=== PATIENT | male | born 1955 | race Caucasian/White ===

== ENCOUNTER → 2020-05-08 09:40 | Outpatient (BNVA) | payer MEDICARE, SELFPAY | PROVIDERS: PCP Internal Medicine; Visit Provider Anesthesiology | DX: M47.816 Spondylosis without myelopathy or radiculopathy, lumbar region (principal); M54.16 Radiculopathy, lumbar region; M54.31 Sciatica, right side | CPT/HCPCS: 99213 ==

== ENCOUNTER 2020-05-19 07:29 | Outpatient (REF) | payer MEDICARE, SELFPAY ==
--- NOTE | 2020-05-19 07:31 | MR_ITS ---
EXAMINATION: MR LUMBAR SPINE WITHOUT CONTRAST CLINICAL INFORMATION: Right lower extremity radiculopathy and low back pain. COMPARISON: MRI dated 12/21/2018. TECHNIQUE: MRI of the lumbar spine was obtained using routine sequences without contrast. FINDINGS: VERTEBRAL BODIES AND PARASPINAL STRUCTURES: The marrow signal is mildly heterogeneous with regions of fatty change. Mild retrosubluxation at L4-L5 again evident. No compression fractures are seen. There is mild leftward endplate edema at L4-L5, decreased when compared to prior imaging with a mild leftward lumbar spinal curvature. The paraspinal soft tissues are unremarkable. Renal cysts present, more so on the left side. The imaged bony pelvis is unremarkable. CONUS MEDULLARIS AND CAUDA EQUINA: Normal, terminating at the level of T12-L1. No lower cord signal abnormality is seen. The cauda equina nerve roots are normal. SPINAL LEVELS: L1-L2: Generalized disc bulge slightly lateralized to the left side with mild facet arthropathy. No central canal stenosis or foraminal narrowing. L2-L3: Broad-based disc bulge and small right subarticular zone disc protrusion mildly impressing upon the right L3 nerve root. Previous small right paracentral disc extrusion has resorbed. No central canal stenosis or foraminal narrowing. Mild retrosubluxation. L3-L4: Generalized disc bulge and hypertrophic facet arthropathy with mild central canal stenosis. Disc bulge posteriorly results in mild mass effect upon the traversing L4 nerve roots. Bulging disc mildly encroaches upon the right neural foramen. L4-L5: Diffuse disc bulge and retrosubluxation with qxwgjzts-qc-vhpcaf facet arthropathy again evident. Stable rwjzdioq-zu-fsmsgc central canal stenosis and thecal sac distortion. A right lateral recess disc extrusion is again visible compressing the right L5 nerve root. Npff-wq-pbhxklgx foraminal narrowing without change. Facet spurring encroaches upon the left subarticular zone. L5-S1: Moderate facet arthropathy and posterior disc bulge with endplate spurring. No central canal stenosis. Facet arthropathy mildly distorts the traversing left S1 nerve root without change. MR/MR lumbar spine wo con IMPRESSION: Previous small right paracentral disc extrusion at L2-L3 has resorbed. Spondylitic changes at the remaining levels are fairly similar with zszfjhmm-ol-mkyslq central canal stenosis at L4-L5 and a right lateral recess disc extrusion compressing the right L5 nerve root.
== END 2020-05-19 07:30 | disposition home or self-care (01) ==
LOC: HO.MRI 07:29
PROVIDERS: PCP Internal Medicine; Visit Provider Internal Medicine
DX: M54.16 Radiculopathy, lumbar region (principal); M54.31 Sciatica, right side; R20.0 Anesthesia of skin
CPT/HCPCS: 72148

== ENCOUNTER 2020-05-31 06:13 | Outpatient (REF) | payer MEDICARE, SELFPAY ==
[2020-05-31 07:55] LABS: Cholesterol 179 mg/dL; HDL Cholesterol 46 mg/dL; LDL Cholesterol Calculated 111 mg/dl; Triglycerides 110 mg/dL
== END 2020-05-31 06:14 | disposition home or self-care (01) ==
LOC: HO.LAB 06:13
PROVIDERS: Visit Provider Internal Medicine
DX: I10 Essential (primary) hypertension (principal); M47.816 Spondylosis without myelopathy or radiculopathy, lumbar region; M54.16 Radiculopathy, lumbar region; M54.31 Sciatica, right side
CPT/HCPCS: 80061; 99212

== ENCOUNTER 2020-06-13 05:58 | Outpatient (REF) | payer MEDICARE, SELFPAY ==
--- NOTE | 2020-06-13 08:05 | FL_ITS ---
EXAMINATION: XR FLUOROSCOPY WITH IMAGES CLINICAL INFORMATION: M47.816 - Spondylosis without myelopathy or radiculopathy COMPARISON: MRI lumbar spine 05/19/2020 TECHNIQUE: Fluoroscopy performed by Bibiana Galdamez NP. Fluoroscopy time: 1.1 minutes DAP: 10.2 Gycm2 Images: 3 FINDINGS: There are spinal needles overlying outer aspect right L2-L3, L3-L4, L4-L5, and L5-S1 neural foramina. FL/FL guidance in treatment room IMPRESSION: Fluoroscopy for pain management procedures.
== END 2020-06-13 05:59 | disposition home or self-care (01) ==
LOC: HO.RADIR 05:58
PROVIDERS: PCP Internal Medicine; Visit Provider Anesthesiology
DX: M47.816 Spondylosis without myelopathy or radiculopathy, lumbar region (principal); M54.16 Radiculopathy, lumbar region; M54.31 Sciatica, right side
CPT/HCPCS: 64635; 64636; J3300; Q9967

== ENCOUNTER 2020-06-30 14:17 | Outpatient (REF) | payer MEDICARE, SELFPAY ==
--- NOTE | 2020-06-30 14:23 | XR_ITS ---
EXAMINATION: XR CHEST CLINICAL INFORMATION: Cough COMPARISON: None TECHNIQUE: 2 views of the chest were obtained. FINDINGS: The lungs are well expanded. There is no focal consolidation, edema, or effusion. No pneumothorax. The cardiomediastinal silhouette is within normal limits. No acute osseous abnormality. XR/XR chest 2V IMPRESSION: No acute pulmonary finding.
== END 2020-06-30 14:18 | disposition home or self-care (01) ==
LOC: HO.XRAY 14:17
PROVIDERS: PCP Internal Medicine; Visit Provider Internal Medicine
DX: R05 Cough (principal)
CPT/HCPCS: 71046

== ENCOUNTER 2020-06-30 16:26 | Outpatient (REF) | payer MEDICARE, SELFPAY | END 2020-06-30 16:27 | disposition home or self-care (01) | LOC: HO.LAB 16:26 | PROVIDERS: Visit Provider Internal Medicine | DX: Z20.828 Contact with and (suspected) exposure to other viral communicable diseases (principal); R09.89 Other specified symptoms and signs involving the circulatory and respiratory systems | CPT/HCPCS: U0003 ==

== ENCOUNTER → 2020-07-26 09:54 | Outpatient (BNVA) | payer MEDICARE, SELFPAY | PROVIDERS: PCP Internal Medicine; Visit Provider Anesthesiology | DX: M47.816 Spondylosis without myelopathy or radiculopathy, lumbar region (principal); M54.16 Radiculopathy, lumbar region; M54.31 Sciatica, right side | CPT/HCPCS: Q3014 ==

== ENCOUNTER 2021-02-19 06:07 | Outpatient (REF) | payer MEDICARE, SELFPAY ==
[2021-02-19 06:35] LABS: MANUAL DIFF FLAG NO
[2021-02-19 06:45] LABS: Basophils Percent Auto 0.5 % (0-2); Eosinophils Absolute Auto 0.2 X10*3/uL (0.0-0.4); Eosinophils Percent Auto 3.2 % (0-4); Hematocrit 42.4 % (42-52); Imm Gran Abs Auto 0.08 X10*3/uL (0.00-0.03); Imm Gran Pct Auto 1.4 % (0.0-0.4); Lymphocytes Absolute Auto 1.3 X10*3/uL (1.2-4.9); Lymphocytes Percent Auto 22.8 % (20-40); Mean Corpuscular Hemoglobin 30.4 pg (27.0-33.0); Mean Platelet Volume 11.2 fL (9.4-12.4); Monocytes Absolute Auto 0.5 X10*3/uL (0.1-1.2); Monocytes Percent Auto 9.3 % (2-11); Neutrophils Absolute Auto 3.6 X10*3/uL (2.0-8.3); Neutrophils Percent Auto 62.8 % (45-73); Platelet Count 185 X10*3/uL (160-400); Red Blood Count 4.61 X10*6/uL (4.60-5.80); Red Cell Distribution Width 12.2 % (11.0-16.0); White Blood Count 5.7 X10*3/uL (4.8-10.8)
[2021-02-19 07:08] LABS: Alanine Aminotransferase 18 U/L (0-40); Albumin Level 4.4 g/dL (3.5-5.0); Alkaline Phosphatase 62 U/L (39-117); Anion Gap 14 (12-20); Aspartate Amino Transferase 19 U/L (5-37); Bilirubin Total < 0.2 mg/dL (0.0-1.0); Blood Urea Nitrogen 15 mg/dL (9-16); Calcium 9.4 mg/dL (8.4-10.2); Carbon Dioxide 26 mmol/L (22-29); Chloride 104 mmol/L (96-108); Cholesterol 193 mg/dL; Estimated Glomerular Filt Rate > 60; Glucose Fasting 104 mg/dL (60-99); HDL Cholesterol 51 mg/dL; LDL Cholesterol Calculated 130 mg/dl; Potassium 4.1 mmol/L (3.3-5.1); Sodium 140 mmol/L (135-145); Total Protein 7.3 g/dL (6.5-8.0); Triglycerides 63 mg/dL
== END 2021-02-19 06:08 | disposition home or self-care (01) ==
LOC: HO.LAB 06:07
PROVIDERS: PCP Internal Medicine; Visit Provider Internal Medicine
DX: Z00.00 Encounter for general adult medical examination without abnormal findings (principal); E11.9 Type 2 diabetes mellitus without complications
CPT/HCPCS: 36415; 80053; 80061; 85025

== ENCOUNTER → 2021-03-21 10:04 | Outpatient (BNVA) | payer MEDICARE, SELFPAY | PROVIDERS: PCP Internal Medicine; Visit Provider Anesthesiology | DX: M47.816 Spondylosis without myelopathy or radiculopathy, lumbar region (principal); M54.16 Radiculopathy, lumbar region; M54.31 Sciatica, right side; I10 Essential (primary) hypertension; Z88.0 Allergy status to penicillin | CPT/HCPCS: 99212 ==

== ENCOUNTER 2021-04-27 08:43 | Day surgery (SDC) | payer MEDICARE, SELFPAY ==
--- NOTE | 2021-04-26 09:18 | P.CONAN_ITS ---
Documented by User: Sapna Gutierrez NP 04/26/21 09:19 HPI - Anesthesia Eval Consult details Narrative: 65yo M for Right Medial Branch Radiofrequency AB PMFSH Active Problems Active Problems: All Active Problems (Updated 03/21/21 @ 17:45 by Israel Cloud MD) Cough (Acute) Physical exam (Acute) Hypertension (Acute) Spondylosis of lumbar region without myelopathy or radiculopathy (Acute) Lumbar radiculopathy (Acute) Numbness of toes (Acute) Sciatica (Acute) Past Medical History Medical History Hypertension Spondylosis of lumbar region without myelopathy or radiculopathy Family History Family History (Updated 02/20/21 @ 13:28 by EDI Gurrola) Father Diabetes Heart failure Mother Respiratory failure Surgical History Surgical History History of parathyroidectomy Social History Social History Housing: House Alcohol intake: never Patient Tobacco Use Status: Never used Tobacco e-Cigarette/Vaping Use: Never Used Second Hand Smoke Exposure: No Use of substances other than those prescribed or required for medical reasons: No Are you DNR?: No Advance Directives: No Advance Directives Information Provided: Yes Advance Directives on File: No service: No Current occupational status: retired Meds Allergies Allergy/AdvReac Type Severity Reaction Status Date / Time Penicillins [PENICILLINS] Allergy Unknown HIVES Verified 03/21/21 10:45 Home Medications Medication Instructions Recorded Confirmed Last Taken Type bimatoprost 0.01 % eye drops 1 drp OPHTHALMIC (EYE) DAILY ml 05/08/20 02/20/21 Unknown History acetaminophen 500 mg tablet 500 mg PO Q6H PRN 05/31/20 02/20/21 Unknown History (Tylenol Extra Strength) ibuprofen 800 mg tablet 800 mg PO TID 05/31/20 02/20/21 Unknown History niacin 500 mg tablet 500 mg PO BID 06/02/20 02/20/21 Unknown History Exam Exam Date and Time: April 26, 2021 0918 Pertinent Lab Results Pertinent Lab Results: Laboratory Tests 02/19/21 02/19/21 06:13 06:13 WBC 5.7 Hgb 14.0 Hct 42.4 Plt Count 185 Sodium 140 Potassium 4.1 Chloride 104 Carbon Dioxide 26 BUN 15 Creatinine 1.14 Assessment and Plan Assessment Anesthesia Assessment: Chart Reviewed Documented by User: Evan Sanchez MD 04/27/21 09:23 [facility] Past Medical History Medical History Hypertension Spondylosis of lumbar region without myelopathy or radiculopathy Family History Family History (Updated 02/20/21 @ 13:28 by EDI Gurrola) Father Diabetes Heart failure Mother Respiratory failure Family history of problems with anesthesia: No Surgical History Surgical History History of parathyroidectomy History of Problems with Anesthesia: No Social History Social History Housing: House Alcohol intake: never Patient Tobacco Use Status: Never used Tobacco e-Cigarette/Vaping Use: Never Used Second Hand Smoke Exposure: No Use of substances other than those prescribed or required for medical reasons: No Are you DNR?: No Advance Directives: No Advance Directives Information Provided: Yes Advance Directives on File: No service: No Current occupational status: retired Meds Allergies Allergy/AdvReac Type Severity Reaction Status Date / Time Penicillins [PENICILLINS] Allergy Unknown HIVES Verified 03/21/21 10:45 Home Medications Medication Instructions Recorded Confirmed Last Taken Type bimatoprost 0.01 % eye drops 1 drp OPHTHALMIC (EYE) DAILY ml 05/08/20 02/20/21 Unknown History acetaminophen 500 mg tablet 500 mg PO Q6H PRN 05/31/20 02/20/21 Unknown History (Tylenol Extra Strength) ibuprofen 800 mg tablet 800 mg PO TID 05/31/20 02/20/21 Unknown History niacin 500 mg tablet 500 mg PO BID 06/02/20 02/20/21 Unknown History Exam Airway Mallampati Class: III TM Dist: >3cm Neck ROM: Full Loose/Missing/Broken Teeth: No Heart: rrr+s1s2 Lungs: cta b/l Assessment and Plan Assessment Anesthesia Assessment: Anesthesia Plan Discussed Final Anesthetic Review Family History of Problems with Anesthesia: No History of Problems with Anesthesia: No NPO: Yes ASA Class: II Final Preanesthetic Review: No Changes in Pt Med Stat, Meds/Allgs Chart Reviewed, Consent Obtained/Reviewed and Anes Risks/Benef Reviewed Patient Risk: Intermediate Procedure Risk: Low Assessment/Block/Sedation in SS: Assess/Block/Sedation-SS Anesthetic Plan Anesthetic Plan: MAC: and Agree w/ Assess. and Plan Disposition: Standard PACU
--- NOTE | ~2021-04-27 | FL_ITS ---
EXAMINATION: XR FLUOROSCOPY WITH IMAGES CLINICAL INFORMATION: Medial right branch block. COMPARISON: None TECHNIQUE: Fluoroscopy performed by Dr. Israel Cloud. Fluoroscopy time: 0.8 minutes DAP: 8.17 mGy-cm2 Images: 2 FINDINGS: There are needles positioned along the right side of the L3, L4, L5, and S1 pedicles for medial right branch block. No lytic process. There is mild spondylosis at the L4-L5 and L5-S1 disc levels. There is loss of the L3-L4, L4-L5 and L5-S1 disc levels. FL/FL guidance in OR IMPRESSION: Fluoroscopy was provided to referring physician for right medial branch block from L3 through S1 vertebrae.
[2021-04-27 09:05] VITALS: BMI 26.3
[2021-04-27 09:21] VITALS: BP 139/79; PULSE 98; RESP 16; TEMP 36.6; O2SAT 97
[2021-04-27] MEDS: Lactated Ringers 1,000 ML 100 ML IVCONT (09:22)
--- NOTE | 2021-04-27 10:18 | MHC.SHP ---
Pre-Procedural Eval Section A Date of Service: 04/27/21 Section B Chief Complaint: spondylosis without myelopathy Details of Present Illness: As above Relevant Social History: None Present Medications: None Medical History: No relevant PMH History of Previous Operations: No relevant previous surgery Allergies: Allergies Allergy/AdvReac Type Severity Reaction Status Date / Time Penicillins [PENICILLINS] Allergy Unknown HIVES Verified 03/21/21 10:45 Review of Systems Sugical H&P ROS: Negative: Constitution, Cardiovascular, Respiratory, Neurological, Psychiatric, Hem-Onc, Allergic/Immunologic, Gastrointestinal, Genitourinary, Musculoskeletal, Integumentary, Endocrine and Eyes/Ears/Nose/Throat Exam Surgical H&P Exam: Normal: HEENT, Normal: Heart, Normal: Lungs, Normal: Extremities, Normal: Abdomen, Normal: Skin and Normal: Neurological Plan Diagnosis/Plan: Unchanged I have reviewed the history and physical and performed a pertinent physical examination on my patient. No changes have occurred unless specified.
--- NOTE | 2021-04-27 10:27 | P.OP_ITS ---
Operative Note Operative Note Date of Service: 04/27/21 Narrative: Informed consent was explained to the patient. All questions were explained and answered. The patient was taken inside the operating room where he was positioned prone on the operating table. ? Time-out was performed delineating correct site, side, the nature of the procedure, patient's allergy, preoperative antibiotic if needed. All operating room staff was participating in OR time-out procedure.? [employer] [employer] nesthes[employer] monitors were applied and patient was deeply sedated. ? The lower back was prepped with ChloraPrep and draped with sterile towels. Sterilely draped C-arm was brought over the operating field and square picture of? L3, L4 and L5 vertebra and S1 AREA were delineated on the screen. Point of interest were delineated as connection of superior articular process of L3, L4 and L5 vertebra on the right with corresponding transverse processes, as well as connection of the sacral alae on the right with superior articular process of S1. One hundred mm 18 gauge radiofrequency cannulas were driven to the point of interest in tunnel vision fashion. After cannulas gently contacted the bone at the point of interests the radiofrequency probes were inserted into the each of the cannula and each of the cannula was tested for motor response at 2 milliamperes. There were no motor response detected. After that the each cannula was injected with 1-1.5 cc of mixture of bupivacaine 0.5% with lidocaine 2% and trace amount of Kenalog. After that the radiofrequency probes were reinserted into the cannulas and 90 seconds after that we applied energy at 89? for 90 seconds. After that each of the cannula was rotated 180? and energy application was repeated at the same setting at the same time ? Upon completion of the injections cannulas were removed and sterile dressings were applied . patient was awaken and taken outside of the operating room to recovery room where the patient recovered uneventfully. The patient went home without immediate complications.
[2021-04-27 11:15] VITALS: BP 107/51; PULSE 92; RESP 16; TEMP 36.6; O2SAT 95
--- NOTE | 2021-04-27 11:17 | P.BOP_ITS ---
Brief Operative Note Date of Service: 04/27/21 Pre-op diagnosis: Spondylosis lumbar spine Post-op diagnosis: same Procedure: Radiofrequency ablation of L2-L3 L4 and does ramus L5 medial branches on the right Implants: In a Surgeon: Israel Cloud MD Anesthesia: MAC Was an Polishing Wheel Setter used for this Procedure?: No Estimated blood loss (mL): 5 Pathology: none sent Condition: stable Disposition: PACU
[2021-04-27 11:29] VITALS: BP 122/47; PULSE 70; RESP 16; O2SAT 97
[2021-04-27 11:45] VITALS: BP 123/72; PULSE 76; RESP 16; O2SAT 97
[2021-04-27 12:07] VITALS: BP 112/77; PULSE 76; RESP 16; TEMP 36.1; O2SAT 97
== END 2021-04-27 12:47 | disposition home or self-care (01) ==
PROVIDERS: PCP Internal Medicine; Visit Provider Anesthesiology
PROC: (CPT 64635; principal; 2021-04-27 10:30)
DX: M47.816 Spondylosis without myelopathy or radiculopathy, lumbar region (principal); M54.16 Radiculopathy, lumbar region; M54.50 Low back pain, unspecified; M54.31 Sciatica, right side; M25.551 Pain in right hip; I10 Essential (primary) hypertension; Z79.899 Other long term (current) drug therapy; Z88.0 Allergy status to penicillin
CPT/HCPCS: 64635; 64636; J2250; J3010; J3300; Q9967

== ENCOUNTER → 2021-06-04 10:11 | Outpatient (BNVA) | payer MEDICARE, SELFPAY | PROVIDERS: PCP Internal Medicine; Visit Provider Anesthesiology | DX: M47.816 Spondylosis without myelopathy or radiculopathy, lumbar region (principal); M54.16 Radiculopathy, lumbar region; M54.31 Sciatica, right side; M25.511 Pain in right shoulder | CPT/HCPCS: 99212 ==

== ENCOUNTER 2021-07-12 09:00 | Outpatient (RCR) | payer MEDICARE, SELFPAY ==
[2021-06-19 14:12] VITALS: BP 164/85
--- NOTE | 2021-06-20 08:52 | MHC.PT.EP ---
[facility] [place] Office [place] [facility] [place] Office [address] Coleman Lee [address] [phone] F: [phone] F: [phone] F: [phone] F: [phone] Physical Therapy Plan of Care Date of Evaluation: Date of Surgery: Diagnosis: RIGHT SHOULDER INJURY Assessment: ALLEN IS A PLEASANT 65 YO MALE WITH INCREASING SHOULDER PAIN AFTER LIFTING. UPON EXAM HE DEMONSTRATES DECREASED SHOULDER ROM AND STRENGTH, ALTERED POSTURE AND POSITIONING, DECREASED SOFT TISSUE EXTENSIBILITY AND INCREASED PAIN. FUNCTIONAL LIMITATIONS INCLUDE DECREASED ABILITY TO PERFORM LIFTING, REACHING, PUSHING AND PULLING. HE REPORTS DECREASED ABILITY TO PERFORM HIGHER DEMAND HOMEMAKING TASKS, DECREASED PARTICIPATION IN COMMUNITY AND RECREATIONAL ACTIVITIES. DISRUPTED SLEEP. A PT IS A GOOD CANDIDATE FOR SKILLED PT DUE TO AGE, POTENTIAL REMEDIATION OF IMPAIRMENTS, TYPICAL DISEASE/CONDITION PROGRESSION AND PROGNOSIS, COMORBIDITIES, AND MOTIVATION. PT WOULD BENEFIT FROM TAILORED PROGRAM OF THERAPEUTIC ACTIVITIES, FUNCTIONAL TRAINING, GAIT TRAINING, POSTURAL EDUCATION, NEUROMUSCULAR RE-EDUCATION, AND MODALITIES NEEDED. Frequency and Duration: The patient will be seen 2 X WEEK FOR 4 WEEKS Short Term Goals: INITIATE HEP AND PROMOTE SELF MANAGEMENT OF SYMPTOMS IN 2 VISITS Retirement Goals: Full, pain free ROM in 4 weeks Full UE strength, pain free in 4 weeks To perform computer and work tasks without restriction and pain no greater than 2/10 in [address] at minimum of 5# into cabinet at shoulder height in 4 weeks Treatment Plan: Modalities to reduce pain, spasms and effusion. Manual therapy to restore motion and function. Therapeutic exercise to improve strength and flexibility. Neuromuscular re-education for posture and balance. Therapeutic activities to return to functional activities of daily living. Electronically signed by: CJ ODOM PT, DPT Please sign and return to therapist. Thank you for your referral.
--- NOTE | 2021-07-12 09:37 | MHC.PT.DC ---
[facility] [place] Office [place] Office [place] Office [address] Coleman Lee [address] [phone] F: [phone] F: [phone] F: [phone] F: [phone] Physical Therapy Discharge Report Diagnosis: RIGHT SHOULDER INJURY Date of Surgery: Date of Evaluation: 06/19/21 Date of Discharge: Treatments to Date: 8 Cancellations to Date: 0 No Shows to Date: 0 Discharge Status: Achieved Goals Improved Function Independent with HEP Discharge Summary: Sage has progressed well with therapy and demonstrates improved posture and independence with his current HEP. His symptoms have decreased in both frequency and intensity. We recommend he continue with his home program as well as maintaining postural awareness during recreational activities like his keyboard playing. He has been instructed in strategies to progress himself at home with independence. Electronically signed by: Annetta Blue PT, DPT Please sign and return to therapist. Thank you for your referral.
== END 2021-07-12 09:38 | disposition home or self-care (01) ==
LOC: HO.PT 09:00
PROVIDERS: PCP Internal Medicine; Visit Provider Anesthesiology
DX: M25.511 Pain in right shoulder (principal)
CPT/HCPCS: 97110; 97140; 97161; 97530

== ENCOUNTER → 2021-12-19 10:57 | Outpatient (REF) | payer MEDICARE, SELFPAY | LOC: HO.SL 10:57 | PROVIDERS: PCP Internal Medicine; Visit Provider Internal Medicine | DX: G47.33 Obstructive sleep apnea (adult) (pediatric) (principal); R06.83 Snoring | CPT/HCPCS: 95806 ==

== ENCOUNTER 2022-02-20 06:06 | Outpatient (REF) | payer MEDICARE, SELFPAY ==
[2022-02-20 06:11] LABS: MANUAL DIFF FLAG NO
[2022-02-20 07:27] LABS: Basophils Percent Auto 0.6 % (0-2); Eosinophils Absolute Auto 0.1 X10*3/uL (0.0-0.4); Eosinophils Percent Auto 1.5 % (0-4); Hematocrit 41.5 % (42.0-52.0); Hemoglobin 13.7 g/dl (14.0-18.0); Imm Gran Abs Auto 0.05 X10*3/uL (0.00-0.03); Imm Gran Pct Auto 0.7 % (0.0-0.4); Lymphocytes Absolute Auto 1.4 X10*3/uL (1.2-4.9); Lymphocytes Percent Auto 21.4 % (20-40); Mean Corpuscular Hemoglobin 30.5 pg (27.0-33.0); Mean Corpuscular Volume 92.4 fL (80.0-98.0); Mean Platelet Volume 11.1 fL (9.4-12.4); Monocytes Absolute Auto 0.6 X10*3/uL (0.1-1.2); Monocytes Percent Auto 9.4 % (2-11); Neutrophils Absolute Auto 4.4 x10*3/uL (2.0-8.3); Neutrophils Percent Auto 66.4 % (45-73); Platelet Count 211 X10*3/uL (160-400); Red Blood Count 4.49 X10*6/uL (4.60-5.80); Red Cell Distribution Width 12.6 % (11.0-16.0); White Blood Count 6.7 X10*3/uL (4.8-10.8)
[2022-02-20 07:44] LABS: Alanine Aminotransferase 22 U/L (0-40); Albumin Level 4.4 g/dL (3.5-5.0); Alkaline Phosphatase 63 U/L (39-117); Anion Gap 15 (12-20); Aspartate Amino Transferase 16 U/L (5-37); Bilirubin Total 0.5 mg/dL (0.0-1.0); Blood Urea Nitrogen 26 mg/dL (9-16); Calcium 9.2 mg/dL (8.4-10.2); Carbon Dioxide 27 mmol/L (22-29); Chloride 105 mmol/L (96-108); Cholesterol 198 mg/dL; Estimated Glomerular Filt Rate 59; Glucose Fasting 95 mg/dL (60-99); HDL Cholesterol 45 mg/dL; LDL Cholesterol Calculated 133 mg/dl; Potassium 4.2 mmol/L (3.3-5.1); Sodium 143 mmol/L (135-145); Total Protein 7.3 g/dL (6.5-8.0); Triglycerides 104 mg/dL
[2022-02-20 08:07] LABS: Prostate Specific Antigen Scr 2.39 ng/mL (<0.05-4.0)
== END 2022-02-20 06:07 | disposition home or self-care (01) ==
LOC: HO.LAB 06:06
PROVIDERS: PCP Internal Medicine; Visit Provider Internal Medicine
DX: Z00.00 Encounter for general adult medical examination without abnormal findings (principal); Z12.5 Encounter for screening for malignant neoplasm of prostate; Z13.0 Encounter for screening for diseases of the blood and blood-forming organs and certain disorders involving the immune mechanism
CPT/HCPCS: 36415; 80053; 80061; 84153; 85025

== ENCOUNTER 2022-08-08 09:58 | Outpatient (REF) | payer MEDICARE, SELFPAY ==
--- NOTE | ~2022-08-08 | XR_ITS ---
EXAMINATION: XR CHEST CLINICAL INFORMATION: Chronic cough COMPARISON: 06/30/2020 TECHNIQUE: 2 views of the chest were obtained. FINDINGS: No significant abnormality is noted involving the heart, lungs, mediastinum, bony thorax or soft tissues. XR/XR chest 2V IMPRESSION: Unremarkable examination.
== END 2022-08-08 09:59 | disposition home or self-care (01) ==
LOC: HO.HMGCX 09:58
PROVIDERS: PCP Internal Medicine; Visit Provider Internal Medicine
DX: R05.3 Chronic cough (principal); R09.81 Nasal congestion; R09.82 Postnasal drip
CPT/HCPCS: 71046

== ENCOUNTER 2022-12-11 12:38 | Outpatient (REF) | payer MEDICARE, SELFPAY ==
[2022-12-11 13:52] LABS: Hematocrit 43.2 % (42.0-52.0); Hemoglobin 14.1 g/dl (14.0-18.0); Mean Corpuscular HGB Conc 32.6 g/dl (31.0-36.0); Mean Corpuscular Hemoglobin 29.9 pg (27.0-33.0); Mean Corpuscular Volume 91.7 fL (80.0-98.0); Platelet Count 225 X10*3/uL (160-400); Red Blood Count 4.71 X10*6/uL (4.60-5.80); Red Cell Distribution Width 12.2 % (11.0-16.0); White Blood Count 7.1 X10*3/uL (4.8-10.8)
[2022-12-11 13:57] LABS: Prothrombin Time 11.3 SEC (10.0-13.1)
[2022-12-11 14:54] LABS: Anion Gap 14 (12-20); Blood Urea Nitrogen 19 mg/dL (9-16); Calcium 9.8 mg/dL (8.4-10.2); Carbon Dioxide 27 mmol/L (22-29); Chloride 103 mmol/L (96-108); Estimated Glomerular Filt Rate > 60; Glucose Random 81 mg/dL (60-115); Potassium 3.7 mmol/L (3.3-5.1); Sodium 140 mmol/L (135-145)
[2022-12-11 15:10] LABS: TSH reflex Free T4 1.71 uIU/mL (0.32-4.0)
== END 2022-12-11 12:39 | disposition home or self-care (01) ==
LOC: HO.LAB 12:38
PROVIDERS: PCP Internal Medicine; Visit Provider Nurse Practitioner Family
DX: Z01.818 Encounter for other preprocedural examination (principal); I10 Essential (primary) hypertension; H26.9 Unspecified cataract; M54.30 Sciatica, unspecified side
CPT/HCPCS: 36415; 80048; 84443; 85027; 85610

== ENCOUNTER 2023-02-18 09:28 | Outpatient (AMB) | payer MEDICARE, SELFPAY ==
[2023-02-18 09:34] VITALS: BP 130/72; PULSE 85; O2SAT 97; BMI 27.5
--- NOTE | 2023-02-18 09:34 | A.OFFPC_ITS ---
Vital Signs 02/18/23 09:34 Height 6 ft 2 in Weight 214 lb BMI 27.5 BP 130/72 Blood Pressure Location Lt brachial Position Sitting Pulse 85 Pulse Source Pulse Oximeter Temp Source Skin Pulse Oximetry (%) 97 Oxygen Delivery Method Room Air Intake Visit Reasons: 6mth f/u Greenhouse Or Nursery Transplanter Required: No Allergies Penicillins [PENICILLINS] Allergy (Unknown, Verified 02/18/23 09:34) HIVES Medication List - Last Reconciled 02/18/23 by Familia George MD acetaminophen (Tylenol Extra Strength) 500 mg PO Q6H PRN bimatoprost 0.01% 1 drp ophthalmic (eye) DAILY CPAP (CPAP Machine/Device) Pressure 8 ezetimibe 10 mg PO DAILY hydrochlorothiazide 25 mg PO DAILY ibuprofen 800 mg PO TID lisinopril 2.5 mg PO DAILY lorazepam 1 mg PO BID PRN niacin 500 mg PO BID tamsulosin 0.4 mg PO DAILY Tobacco use date assessed: 02/18/23 Fall risk assessment: No Falls in past year Last assessed Fall Risk: 02/18/23 Dental Screening Dental Screen Date: 02/18/23 Did you have a dental visit in the last 12 months?: Yes Did you have a dental problem in the last 6 months where you did not have access to dental care?: No HPI 6mth f/u HPI Details HTN CAROLE on CPAP and glaucome; stable on rx PFSH Medical History Hypertension Right shoulder pain Spondylosis of lumbar region without myelopathy or radiculopathy Surgical History History of parathyroidectomy Family History Father Diabetes Heart failure Mother Respiratory failure Social History Housing: House Alcohol intake: never Patient Tobacco Use Status: Never used Tobacco e-Cigarette/Vaping Use: Never Used Second Hand Smoke Exposure: No service: No Current occupational status: retired Cognitive needs: No Hearing needs: No Vision needs: Yes Questionnaire Thrive Questionnaire Date Thrive assessed: 08/21/22 AUDIT C Alcohol Use Questionnaire (AUDIT-C) 1. How often do you have a drink containing alcohol?: Never 3. How often do you have six or more drinks on one occasion?: Never Total Score: 0 Score Reviewed/Action Taken: No PATEL-7 AMB Questionnaire PATEL-7 Date PATEL - 7 assessed: 08/21/22 Source: Developed by Drs. Shmuel Blackman, Dian Westfall, Jones Palacio and colleagues, with an educational silvino from [employer]. Review of Systems Const Denies chills, Denies headache(s) and Denies weight loss ENT Denies headache(s) Card Denies chest pain, Denies syncope, Denies irregular heart rhythm and Denies dyspnea Resp Denies chest congestion, Denies cough and Denies dyspnea GI Denies abdominal pain, Denies change in stool character, Denies nausea and Denies vomiting Musc Denies deformity and Denies joint swelling Neuro Denies syncope and Denies headache(s) Physical exam (Primary Care) Vital Signs: Last Vital Signs Pulse 85 02/18/23 09:34 BP 130/72 02/18/23 09:34 Pulse Ox 97 02/18/23 09:34 Oxygen Delivery Method Room Air 02/18/23 09:34 BMI result Body Mass Index 27.5 Tobacco/Smoking Status: Tobacco use Status Tobacco use date assessed 02/18/23 02/18/23 09:38 Patient Tobacco Use Status Never used Tobacco 02/18/23 09:38 e-Cigarette/Vaping Use Never Used 02/18/23 09:38 Thrive Assessment: Date of Thrive Assessment Date Thrive assessed 08/21/22 02/18/23 09:38 Const General: cooperative and no acute distress Orientation/consciousness: patient oriented x3 HENMT Head: Yes normocephalic and Yes atraumatic Ears: TM's normal bilaterally Face and sinus: Yes sinuses nontender Mouth: oropharynx normal and moist mucous membranes Throat: Yes posterior oropharynx normal Eyes General: appearance normal, both eyes and all related structures Pupils: Equal, round and reactive pupils present EOM: EOMs intact bilaterally Neck Neck: Yes normal visual inspection, Yes full ROM and Yes no lymphadenopathy Thyroid: Thyroid normal Resp Effort & Inspection: normal respiratory effort and able to speak in complete sentences Auscultation: clear to auscultation bilaterally, no crackles, no rales, no rh onchi and no wheezes Cardio Rate: regular rate Rhythm: regular rhythm Heart sounds: S1 normal heart sound present, S2 normal heart sound present and no murmurs GI Palpation (GI): Soft to palpation, not firm, nontender, no guarding, not rigid and no hepatosplenomegaly Auscultation: normal bowel sounds General: No CVA tenderness Back/Spine/Pelvis Back: No CVA tenderness Skin General skin exam: no rashes or lesions noted Neuro General: patient oriented x3 Cranial nerves: Yes Equal, round and reactive pupils present Gait exam (Neuro): Normal gait present Extrem General: Yes full ROM and No edema Assessment and Plan Assessment & Plan (1) Obstructive sleep apnea: Code(s): G47.33 - Obstructive sleep apnea (adult) (pediatric) Plan: cont cpap (2) Hypertension: Code(s): I10 - Essential (primary) hypertension Plan: stable; same rx (3) Glaucoma: Code(s): H40.9 - Unspecified glaucoma Plan: stable; as per ophth Coding Level of Care Code Est Pt Level 4 (11226) Diagnoses Obstructive sleep apnea G47.33 Hypertension I10 Glaucoma H40.9
== END 2023-02-18 10:01 | disposition home or self-care (01) ==
PROVIDERS: PCP Internal Medicine; Visit Provider Internal Medicine
DX: G47.33 Obstructive sleep apnea (adult) (pediatric) (principal); I10 Essential (primary) hypertension; H40.9 Unspecified glaucoma
CPT/HCPCS: 99214

== ENCOUNTER 2023-04-28 09:05 | Outpatient (AMB) | payer MEDICARE, SELFPAY ==
--- NOTE | 2023-04-28 09:17 | MHC.OFFVIS ---
Intake Vital Signs 04/28/23 09:18 Height 6 ft 2 in Weight 209 lb BMI 26.8 BP 118/60 Blood Pressure Location Rt brachial Position Sitting Respiration 16 Pulse 89 Pulse Source Pulse Oximeter Pulse Oximetry (%) 96 Oxygen Delivery Method Room Air Intake Visit Reasons: Increasing Pain in Back Intake Note: patient comes in for increasing back pain. Pain level today is 2/10. Allergies Penicillins [PENICILLINS] Allergy (Unknown, Verified 04/28/23 09:18) HIVES HPI HPI Comments History of Present Illness Details Sage is very pleasant 63 years old gentleman who is in my office to complain again on lower back pain.? He reported that he had very good pain relieve and good mobility in activity of daily living until beginning of the March when he pulled some muscles in the right side of his lower back. He had radiofrequency ablation previously on the right side L2-L3 L4 does ramus L5 on the right side with very good results twice with interval of about of 1 year between the RFA. He reports that his pain now is getting better and he wants to try physical therapy. I will refer him to physical therapy . Prior: he had successful right-sided L2-L3 L4 dorsal ramus L5 radiofrequency ablation.? It was working for a while but then he came to me with the same complaints again. I repeated right-sided L2 L3-L4 does ramus L5 medial branch radiofrequency ablation on April 27, 2021. He reports now 50% pain improvement on his typical pain on the right side with radiation into the right buttock, better mobility better activities of daily living better social interactions. However he reports that recently he tried to lift something heavy and after that he felt pain in the center of the lumbar spine he reports that this is new pain. He also reports that most bothering pain is pain in his right shoulder which also occurred after the heavy lift. He tried to take Tylenol and muscle relaxants for this pain. He reports very minimal pain improvement however he reports significant range of motion improvement in the shoulder. ? He is status post cluneal nerve injection with no good pain relief, he is status post diagnostic positive right-sided L2-L3 L4 dorsal ramus L5 diagnostic injection. ?Prior: ? TRAVERSING L3 NERVE ROOT IS COMPRESSED ON MRI BELOW AND I CANNOT EXCLUDE THE CONTRIBUTION OF THIS PATHOLOGY TO HIS PAIN. THE RIGHT-SIDED PAIN IN THE BACK AFTER RFA MOST LIKELY WILL DISAPPEAR HOWEVER IF THE LEG'S PAIN WILL LINGER L2-L3 A AND L3-L4 TRANSFORAMINAL INJECTION COULD BE TRIED TO ALLEVIATE HIS PAIN.PRIOR the pain is radiating down to the right hip on the lateral side and to the right carreno on the right lateral side pain stops approximately at the ankle area. The pain is STRONGEST in the morning. DALTON TEST IS NEGATIVE FOR PAIN INCREASE IN THE BACK. ? pain started to disturb him 4 years ago. He tried physical therapy several times and he reported that physical therapy was MINIMALLY TO MODERATELY helpful for his pain he reports that heat application ultrasound application and traction help his pain. He reported that he was subject of some injections performed by [facility] he is not sure what injections were performed. They were performed before patient had MRI of the lumbar spine. He never tried chiropractic manipulations for the pain. It was suggested to him before [facility] Medical History Hypertension Right shoulder pain Spondylosis of lumbar region without myelopathy or radiculopathy Surgical History History of parathyroidectomy Family History Father Diabetes Heart failure Mother Respiratory failure Social History Housing: House Alcohol intake: never Patient Tobacco Use Status: Never used Tobacco e-Cigarette/Vaping Use: Never Used Second Hand Smoke Exposure: No service: No Current occupational status: retired Cognitive needs: No Hearing needs: No Vision needs: Yes Review of Systems Const All systems reviewed & are unremarkable except as noted in HPI and below Physical Exam Vital Signs: Last Vital Signs Pulse 89 04/28/23 09:18 Resp 16 04/28/23 09:18 BP 118/60 04/28/23 09:18 Pulse Ox 96 04/28/23 09:18 Oxygen Delivery Method Room Air 04/28/23 09:18 BMI result Body Mass Index 26.8 Const General: cooperative, comfortable, no acute distress, alert, awake and Physically active Orientation/consciousness: oriented to person, oriented to place and oriented to time Eyes Pupils: Equal, round and reactive pupils present EOM: EOMs intact bilaterally Chest Chest palpation & inspection: normal inspection of the chest Resp Effort & Inspection: normal respiratory effort, able to speak in complete sentences, normal respiratory pattern, no audible wheezes and no cough Cardio Jugular venous distension: no JVD GI Inspection: Yes normal to inspection Back/Spine/Pelvis Other: On physical examination patient is able to flex forward and flex backwards without any pain flexing backwards appear to be difficult secondary to stiffness of the lumbar spine however patient does not report pain. Patient is able to flex his spine sideways as well without any pain. Straight leg rising is negative bilaterally. Gaenslen test is negative on the right side Dalton test is negative on the right side. Pelvic compression and pelvic destruction tests are negative for pain increase in the projection of the right sacroiliac joint. Muscular strength of bilateral lower extremities seem to be symmetrical and equal , reports insert deficit on the right sole. Reflexes bilaterally Achilles and patellar seem to be not affected. Straight leg rising does not cause any discomfort in the back bilateral only stretching sensation on the back of his legs. Dorsiflexion of the feet with maximal hip flexion and knee extension also does not cause any increase of the pain in the back... Examination of the right shoulder reveals almost normal range of motion with some limitation of bringing the arm above the shoulder line. Palpation of the posterior portion of the shoulder joint and subscapularis muscle seem to be painful. Sacroiliac joints: on the right Neuro General: oriented to person, oriented to place, oriented to time and gait normal Cranial nerves: Yes Equal, round and reactive pupils present Gait exam (Neuro): Normal gait present Assessment & Plan Assessment & Plan (1) Spondylosis of lumbar region without myelopathy or radiculopathy: Comment: 15 minutes on telephone Code(s): M47.816 - Spondylosis without myelopathy or radiculopathy, lumbar region (2) Lumbar radiculopathy: Code(s): M54.16 - Radiculopathy, lumbar region (3) Sciatica: Code(s): M54.30 - Sciatica, unspecified side Qualifiers: Laterality: right Qualified Code(s): M54.31 - Sciatica, right side (4) Low back pain: Code(s): M54.50 - Low back pain, unspecified (5) Myofascial pain syndrome: Code(s): M79.18 - Myalgia, other site Plan Good results of repeated RFA on April 27, 2021 he reports 50% of pain improvement. He had another procedure before that. Now in my office he reports that hip will some muscle in March of 2023. Initially he had severe pain there but now he reports that his pain is getting better. I recommended him to start formal physical therapy. I will make referral. I will recommend him also to get engaged in low impact aerobic exercise such as stationary bicycle and or elliptical machine. Orders: Orders PT Evaluation and Treatment Today M47.816 - Spondylosis without myelopathy or radiculopathy, lumbar region, M54.50 - Low back pain, unspecified, M79.18 - Myalgia, other site Coding Level of Care Code Est Pt Level 4 (21005) Diagnoses Spondylosis of lumbar region without myelopathy or radiculopathy M47.816 Lumbar radiculopathy M54.16 Sciatica of right side M54.31 Laterality: right Low back pain M54.50 Myofascial pain syndrome M79.18
[2023-04-28 09:18] VITALS: BP 118/60; PULSE 89; RESP 16; O2SAT 96; BMI 26.8
== END 2023-04-28 09:34 | disposition home or self-care (01) ==
PROVIDERS: PCP Internal Medicine; Visit Provider Anesthesiology
DX: M47.816 Spondylosis without myelopathy or radiculopathy, lumbar region (principal); M54.16 Radiculopathy, lumbar region; M54.31 Sciatica, right side; M54.50 Low back pain, unspecified; M79.18 Myalgia, other site
CPT/HCPCS: 99213

== ENCOUNTER → 2023-04-28 09:05 | Outpatient (BNVA) | payer MEDICARE, SELFPAY | PROVIDERS: PCP Internal Medicine; Visit Provider Anesthesiology | DX: M54.50 Low back pain, unspecified (principal); M47.816 Spondylosis without myelopathy or radiculopathy, lumbar region; M54.16 Radiculopathy, lumbar region; M54.31 Sciatica, right side; M79.18 Myalgia, other site | CPT/HCPCS: 99212 ==

== ENCOUNTER 2023-08-29 11:15 | Outpatient (AMB) | payer MEDICARE, SELFPAY ==
[2023-08-29 11:16] VITALS: BP 120/60; PULSE 82; O2SAT 98; BMI 27.7
--- NOTE | 2023-08-29 11:16 | A.OFFPC_ITS ---
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 Multilith Operator: Not Required per policy Accompanied by: Self / Same As Patient Allergies Penicillins [PENICILLINS] Allergy (Unknown, Verified 08/29/23 11:16) HIVES Medication List - Last Reconciled 08/29/23 by Familia George MD acetaminophen (Tylenol Extra Strength) 500 mg PO Q6H PRN bimatoprost 0.01% 1 drp ophthalmic (eye) DAILY CPAP (CPAP Machine/Device) Pressure 8 ezetimibe 10 mg PO DAILY hydrochlorothiazide 25 mg PO DAILY ibuprofen 800 mg PO TID lisinopril 2.5 mg PO DAILY lorazepam 1 mg PO BID PRN niacin 500 mg PO BID tamsulosin 0.4 mg PO DAILY Tobacco use date assessed: 08/29/23 Fall risk assessment: No Falls in past year Last assessed Fall Risk: 08/29/23 Dental Screening Dental Screen Date: 08/29/23 Did you have a dental visit in the last 12 months?: Yes Did you have a dental problem in the last 6 months where you did not have access to dental care?: No Was dental information given to patient?: Patient has dentist HPI 6 month f/u meds HPI Details HTN on Rx; doing well and compliant [facility] Medical History Hypertension Right shoulder pain Spondylosis of lumbar region without myelopathy or radiculopathy Surgical History History of parathyroidectomy Family History Father Diabetes Heart failure Mother Respiratory failure Social History Housing: House Alcohol intake: never Patient Tobacco Use Status: Never used Tobacco e-Cigarette/Vaping Use: Never Used Second Hand Smoke Exposure: No service: No Current occupational status: retired Cognitive needs: No Hearing needs: No Vision needs: Yes Questionnaire PHQ-9 Over the last 2 weeks, how often have you been bothered by any of the following problems? 1. Little interest or pleasure in doing things: not at all 2. Feeling down, depressed, or hopeless: not at all 3. Trouble falling or staying asleep, or sleeping too much: not at all 4. Feeling tired or having little energy: not at all 5. Poor appetite or overeating: not at all 6. Feeling bad about yourself - or that you are a failure or have let yourself or your family down: not at all 7. Trouble concentrating on things, such as reading the newspaper or watching television: not at all 8. Moving or speaking so slowly that other people could have noticed. Or the opposite - being so fidgety or restless that you have been moving around a lot more than usual: not at all 9. Thoughts that you would be better off or of hurting yourself in some way: not at all Total score: 0 Depression Screening Interpretation: Negative Depression Screening Done: Yes 43649 - PHQ-9 Billing: Yes Source: Developed by Drs. Shmuel Blackman, Dian Westfall, Jones Palacio and colleagues, with an educational silvino from [employer]. Thrive Questionnaire Date Thrive assessed: 08/29/23 I am a: Patient What is your living situation today?: I have a steady place to live Within the past 12 months, did the food you bought not last and you didn't have the money to get more?: Never true Within the past 12 months, did you worry whether your food would run out before you got money to buy more?: Never true Do you have trouble paying for medicines?: No Do you have trouble getting transportation to medical appointments?: No Do you have trouble paying your heating and electricity bill?: No Do you have trouble taking care of your child, family member or friend?: No Do you have trouble with day-to-day activities such as bathing, preparing meals, shopping, managing finances, etc.?: No Are you currently unemployed and looking for a job?: No Are you interested in more education?: No Please select the resources that you would like help with: None THRIVE Score: 0 AUDIT C Alcohol Use Questionnaire (AUDIT-C) 1. How often do you have a drink containing alcohol?: Never 3. How often do you have six or more drinks on one occasion?: Never Total Score: 0 Score Reviewed/Action Taken: No PATEL-7 AMB Questionnaire PATEL-7 Date PATEL - 7 assessed: 08/29/23 Feeling nervous, anxious, or on edge: 0 = Not at all Not being able to stop or control worryin = Not at all Worrying too much about different things: 0 = Not at all Trouble relaxin = Not at all Being so restless that it is hard to sit still: 0 = Not at all Becoming easily annoyed or irritable: 0 = Not at all Feeling afraid as if something awful might happen: 0 = Not at all Total PATEL-7 score (0-4 normal; 5-9 mild; 10-14 moderate; 15-21 severe): 0 Source: Developed by Drs. Shmuel Blackman, Dian Westfall, Jones Palacio and colleagues, with an educational silvino from [employer]. PATEL-7 Assessment Billing PATEL-7 Assessment Tool: PATEL-7 Assessment 21028 Review of Systems Const Denies chills, Denies headache(s) and Denies weight loss ENT Denies headache(s) Card Denies chest pain, Denies syncope, Denies irregular heart rhythm and Denies dyspnea Resp Denies chest congestion, Denies cough and Denies dyspnea GI Denies abdominal pain, Denies change in stool character, Denies nausea and Denies vomiting Musc Denies deformity and Denies joint swelling Neuro Denies syncope and Denies headache(s) Physical exam (Primary Care) Vital Signs: Last Vital Signs Pulse 82 08/29/23 11:16 BP 120/60 08/29/23 11:16 Pulse Ox 98 08/29/23 11:16 Oxygen Delivery Method Room Air 08/29/23 11:16 BMI result Body Mass Index 27.7 Tobacco/Smoking Status: Tobacco use Status Tobacco use date assessed 08/29/23 08/29/23 11:17 Patient Tobacco Use Status Never used Tobacco 08/29/23 11:17 e-Cigarette/Vaping Use Never Used 08/29/23 11:17 PHQ-9: PHQ-9 Score PHQ-9: Total score 0 08/29/23 11:17 Depression Screening Interpretation: Negative Thrive Assessment: Date of Thrive Assessment Date Thrive assessed 08/29/23 08/29/23 11:17 Const General: cooperative, comfortable, no acute distress and alert Neck Neck: Yes no lymphadenopathy Thyroid: Thyroid normal Resp Effort & Inspection: normal respiratory effort Auscultation: clear to auscultation bilaterally Percussion: percussion normal Cardio Jugular venous distension: no JVD Palpation: normal PMI Rate: regular rate Rhythm: regular rhythm Heart sounds: S1 normal heart sound present and S2 normal heart sound present GI Inspection: Yes normal to inspection Palpation (GI): No hepatosplenomegaly present Skin General skin exam: no rashes or lesions noted Extrem General: Yes no clubbing, cyanosis or edema Assessment and Plan Assessment & Plan (1) Hypertension: Code(s): I10 - Essential (primary) hypertension Plan: stable; same rx Orders: Orders Lipid Panel Today E78.5 - Hyperlipidemia, unspecified Complete Blood Count Auto Diff Today D64.9 - Anemia, unspecified Comprehensive [place]. Panel Fast Today N28.9 - Disorder of kidney and ureter, unspecified Prostate Specific Antigen Scr Today Z00.00 - Encounter for general adult medical examination without abnormal findings Coding Level of Care Code Est Pt Level 3 (58652) Diagnoses Hypertension I10 Additional Codes PATEL-7 Assessment Billing - PATEL-7 Assessment Tool: PATEL-7 Assessment 11841 ([id number])
== END 2023-08-29 11:48 | disposition home or self-care (01) ==
PROVIDERS: PCP Internal Medicine; Visit Provider Internal Medicine
DX: I10 Essential (primary) hypertension (principal)
CPT/HCPCS: 99213

== ENCOUNTER 2023-10-09 09:44 | Emergency (ER) | payer MEDICARE, SELFPAY ==
--- NOTE | ~2023-10-09 | CT_ITS ---
EXAMINATION: CT ABDOMEN AND PELVIS WITHOUT CONTRAST CLINICAL INFORMATION: Left flank COMPARISON: None available. TECHNIQUE: Multidetector volumetric imaging was performed from the superior aspect of the liver through the pubic symphysis. Sagittal and coronal reformatted images were obtained on the technologist's workstation. This CT examination was performed using dose optimization techniques as appropriate, variously including the following: *Automated exposure control *Adjustment of mA and/or kV according to patient size (this includes techniques or standardized protocols for targeted exams where dose is matched to indication/reason for exam; i.e. extremities or head) *Use of iterative reconstruction technique DLP: 678 mGy-cm FINDINGS: LUNG BASES: A few pulmonary nodules are present at the lung bases the largest measuring 5 mm in the lower lobe laterally (4:4) LIVER, GALLBLADDER, AND BILIARY TREE: The liver is normal in size, shape, and attenuation. No focal hepatic lesion or biliary ductal dilatation is present. The gallbladder is unremarkable with no evidence of radiopaque gallstones, gallbladder wall thickening, or obvious pericholecystic inflammatory changes. PANCREAS: Unremarkable. SPLEEN: Unremarkable. ADRENAL GLANDS: Unremarkable. KIDNEYS AND URETERS: The kidneys are normal in size, shape, and attenuation. No hydronephrosis, hydroureter, or calculi seen. No perinephric stranding. A benign 5.5 cm Bosniak class I left-sided renal cyst is noted along with some smaller right-sided cysts one of which measures 31 Hounsfield units. These require no additional imaging or follow up with the exception of the 4.4 cm right lower pole mass which would need ultrasound to confirm. BLADDER: A Hutch 2.2 cm diverticulum is noted on the right. No bladder masses or calculi are seen. GASTROINTESTINAL TRACT: A large hiatal hernia is present. Marked diverticula are present in the descending and sigmoid colon. There is some minimal streaky changes in the pericolonic fat at the junction of the descending and sigmoid colon which could conceivably represent extremely early diverticulitis (see pearson images). The small and large bowel are otherwise unremarkable. The appendix is unremarkable. ABDOMINAL WALL: No significant hernia is appreciated. A small periumbilical hernia seen containing only fat. LYMPH NODES: Normal. VASCULAR: Unremarkable. PELVIC VISCERA: There is marked prostatic enlargement with calcifications. OSSEOUS STRUCTURES: Degenerative changes are present in the spine most marked from L3 through S1. CT/CT abdomen pelvis wo IV con IMPRESSION: 1. Question of very early diverticulitis at the junction of the descending and sigmoid colon. 2. Bilateral renal cysts, one of which is slightly hyperdense and would need ultrasound to confirm. 3. Large hiatal hernia. 4. Marked prostatic enlargement with calcifications. 5. Degenerative changes in the spine. 6. Pulmonary nodules the largest measuring 5 mm. According to the UPDATED 2017 Fleischner Society recommendations, the advised follow-up imaging for solid nodules <6 mm in the middle/lower lobes is no routine follow up. .
--- NOTE | ~2023-10-09 | XR_ITS ---
EXAMINATION: XR LUMBOSACRAL SPINE CLINICAL INFORMATION: Back pain with no known injury COMPARISON: MR lumbar spine 05/19/2020 TECHNIQUE: Three views of the lumbosacral spine. FINDINGS: Marked degenerative changes are present throughout the lumbar spine most marked from L3 through S1 with disc space narrowing endplate sclerosis and large osteophytes. There is a mild biconvex thoracolumbar scoliosis present. XR/XR lumbar spine 2-3V IMPRESSION: Marked degenerative changes in the lumbar spine.
[2023-10-09 10:11] VITALS: BP 142/82; PULSE 96; RESP 18; TEMP 36.3; O2SAT 95; BMI 27.0
[2023-10-09 12:03] LABS: MANUAL DIFF FLAG NO
[2023-10-09 12:05] LABS: Basophils Percent Auto 0.3 % (0-2); Eosinophils Percent Auto 0.3 % (0-4); Hematocrit 43.2 % (42.0-52.0); Hemoglobin 14.7 g/dl (14.0-18.0); Imm Gran Abs Auto 0.02 X10*3/uL (0.00-0.03); Imm Gran Pct Auto 0.3 % (0.0-0.4); Lymphocytes Absolute Auto 1.2 X10*3/uL (1.2-4.9); Lymphocytes Percent Auto 15.5 % (20-40); Mean Corpuscular Hemoglobin 30.8 pg (27.0-33.0); Mean Corpuscular Volume 90.4 fL (80.0-98.0); Mean Platelet Volume 10.4 fL (9.4-12.4); Monocytes Absolute Auto 0.5 X10*3/uL (0.1-1.2); Monocytes Percent Auto 6.3 % (2-11); Neutrophils Absolute Auto 6.2 x10*3/uL (2.0-8.3); Neutrophils Percent Auto 77.3 % (45-73); Platelet Count 206 X10*3/uL (160-400); Red Blood Count 4.78 X10*6/uL (4.60-5.80); White Blood Count 7.9 X10*3/uL (4.8-10.8)
[2023-10-09 12:18] LABS: Alanine Aminotransferase 21 U/L (0-40); Albumin Level 4.4 g/dL (3.5-5.0); Alkaline Phosphatase 72 U/L (39-117); Anion Gap 14 (12-20); Aspartate Amino Transferase 16 U/L (5-37); Bilirubin Total 0.4 mg/dL (0.0-1.0); Blood Urea Nitrogen 18 mg/dL (9-16); Calcium 9.9 mg/dL (8.4-10.2); Carbon Dioxide 29 mmol/L (22-29); Chloride 101 mmol/L (96-108); Creatinine Clr Calc Pharmacy 67.3; Estimated Glomerular Filt Rate 59; Glucose Random 102 mg/dL (60-115); Potassium 3.7 mmol/L (3.3-5.1); Sodium 140 mmol/L (135-145); Total Protein 7.3 g/dL (6.5-8.0)
--- NOTE | 2023-10-09 12:33 | ED_ITS ---
HPI - Back Pain/Injury General Chief Complaint: Back Pain/Injury Stated Complaint: Lower back pain Time Seen by Provider: 10/09/23 12:32 Source: patient and family Mode of arrival: ambulatory Limitations: no limitations History of Present Illness HPI Narrative: 67-year-old male with a past medical history chronic back pain, hypertension, lumbar radiculopathy and spondylosis and myofascial pain syndrome presents emergency department with complaints of right low back pain and left back pain radiating into the groin for the past several days. He reports he took lorazepam, cyclobenzaprine, Tylenol this morning for management of his symptoms with little relief in pain. He reports he is chronic hematuria and denies any urinary hesitancy reports urinary frequency. He denies any fevers, chills, saddle anesthesias, weakness, new paresthesias, urinary or fecal incontinence Pertinent positives and negatives discussed in HPI Related Data Home Medications Medication Instructions Recorded Confirmed bimatoprost 0.01 % eye drops 1 drp ophthalmic (eye) DAILY 05/08/20 08/29/23 acetaminophen 500 mg tablet 500 mg PO Q6H PRN 05/31/20 08/29/23 (Tylenol Extra Strength) ibuprofen 800 mg tablet 800 mg PO TID 05/31/20 08/29/23 niacin 500 mg tablet 500 mg PO BID 06/02/20 08/29/23 Previous Rx's Medication Instructions Recorded CPAP (CPAP Machine/Device) #1 ea 10/24/21 hydrochlorothiazide 25 mg tablet 25 mg PO DAILY #90 tabs 09/24/22 lisinopril 2.5 mg tablet 2.5 mg PO DAILY #90 tabs 09/24/22 ezetimibe 10 mg tablet 10 mg PO DAILY #90 tabs 12/18/22 lorazepam 1 mg tablet 1 mg PO BID PRN anxiety #60 tabs 03/31/23 tamsulosin 0.4 mg capsule 0.4 mg PO DAILY #90 caps 09/05/23 Allergies Allergy/AdvReac Type Severity Reaction Status Date / Time Penicillins [PENICILLINS] Allergy Unknown HIVES Verified 08/29/23 11:16 Review of Systems 2 Review of Systems: Yes all other systems are reviewed and are negative [facility] Past Medical History Medical History Hypertension Right shoulder pain Spondylosis of lumbar region without myelopathy or radiculopathy Surgical History History of parathyroidectomy Family History Family History Father Diabetes Heart failure Mother Respiratory failure Social History Social History Housing: House Alcohol intake: never Patient Tobacco Use Status: Never used Tobacco e-Cigarette/Vaping Use: Never Used Second Hand Smoke Exposure: No Advance Directives: No Advance Directives Information Provided: Yes service: No Current occupational status: retired Cognitive needs: No Hearing needs: No Vision needs: Yes Physical Exam 2 Vital Signs: Vital Signs: Last Vital Signs Temp 97.4 F 10/09/23 10:11 Pulse 96 10/09/23 10:11 Resp 18 10/09/23 10:11 BP 142/82 H 10/09/23 10:11 Pulse Ox 95 10/09/23 10:11 O2 Del Method Room Air 10/09/23 10:11 BMI result Body Mass Index 27.0 Nursing notes and vital signs reviewed. GENERAL APPEARANCE: A&0 x 4, generally well appearing, no acute distress HENMT: Normal to inspection, atraumatic, face symmetrical. Normal external ears, nose, and oropharynx clear. EYE: PERRLA, EOM intact, structures appear normal NECK: Supple without stiffness or restricted ROM. HEART: Normal rate and regular rhythm, normal S1/S2, no M/R/G LUNGS: LS CTA, moving air well. Able to speak in complete sentences. No crackles, wheezes, or rhonchi auscultated BACK: No CVAT, no obvious deformity or step-offs EXTREMITIES: Moving all extremities without difficulty. Normal capillary refill. NEUROLOGICAL: Alert and oriented, moving all 4 extremities with equal strength. CN not formally tested but appearing grossly intact. Observed to ambulate with normal gait. Cognition normal SKIN: Warm and dry without any lesions, rash, or visible sores Medications Administered Discontinued Medications Generic Name Dose Route Start Last Admin Trade Name Freq PRN Reason Stop Dose Admin Ketorolac Tromethamine 15 mg 10/09/23 12:32 10/09/23 12:39 Ketorolac Tromethamine 15 Mg/Ml Vial IM 10/09/23 12:33 15 mg ONCE ONE Administration Medical Decision Making Medical Decision Making MDM Narrative: Old records reviewed for previous imaging, lab studies, ECGs, and notes. Patient was assessed the emergency department with no acute distress or toxicity noted. No red flag symptoms or step-offs noted. CT scan abdomen and pelvis was completed, which I have independently interpreted as showing no evidence of nephrolithiasis as cause of patient's pain. Radiologist remarks on question very early diverticulitis in the colon, bilateral renal cysts, a large hiatal hernia, prostate enlargement, degenerative changes of the spine, and pulmonary nodules. Patient updated with diagnostic results and notes that he is aware of renal cysts that he will follow-up with his PCP regarding other findings. As the diverticulitis is in the early stages, I considered antibiotics, however; they were deemed necessary at this time as patient's blood work showed no evidence of leukocytosis and was otherwise unremarkable. Urinalysis showed no evidence of acute urinary tract infection. Patient is safe for discharge at this time with plan for [id number] Tylenol and/or NSAID such as ibuprofen or naproxen for fever/discomfort with dosing as per packaging. HPI, PE, diagnostics, and plan discussed with patient and family with no unanswered questions at this time. Strict return precautions given to return to the emergency department with new, worsening, or concerning emergent symptoms. Recommended to follow-up with there primary care provider in 24-48 hours for further treatment and management. Differential Diagnosis Differential Diagnoses: The differential diagnosis associated with the presentation includes But not Limited to UTI, cystitis, pyelonephritis, nephrolithiasis, strain, sprain, fracture, dislocation, radiculopathy, stenosis, cauda equina, epidural abscess, SBO, perforation, diverticulitis, diverticulosis, sepsis, malignancy Lab Data [facility] Lab Attestation statement: I reviewed the patient's lab results. 10/09/23 12:00 10/09/23 12:00 Labs: Lab Results 10/09/23 10/09/23 Range/Units 12:00 12:29 WBC 7.9 (4.8-10.8) X10*3/uL RBC 4.78 (4.60-5.80) X10*6/uL Hgb 14.7 (14.0-18.0) g/dl Hct 43.2 (42.0-52.0) % MCV 90.4 (80.0-98.0) fL MCH 30.8 (27.0-33.0) pg MCHC 34.0 (31.0-36.0) g/dl RDW 12.0 (11.0-16.0) % Plt Count 206 (160-400) X10*3/uL MPV 10.4 (9.4-12.4) fL Immature Gran % (Auto) 0.3 (0.0-0.4) % Neut % (Auto) 77.3 H (45-73) % Lymph % (Auto) 15.5 L (20-40) % [place] % (Auto) 6.3 (2-11) % Eos % (Auto) 0.3 (0-4) % Baso % (Auto) 0.3 (0-2) % Lymph # (Auto) 1.2 (1.2-4.9) X10*3/uL [place] # (Auto) 0.5 (0.1-1.2) X10*3/uL Eos # (Auto) 0.0 (0.0-0.4) X10*3/uL Baso # (Auto) 0.0 (0.0-0.2) X10*3/uL Abs Immat Gran (auto) 0.02 (0.00-0.03) X10*3/uL Absolute Neuts (auto) 6.2 (2.0-8.3) x10*3/uL Absolute Nucleated RBC 0.000 (0.0-0.012) X10*3/uL Nucleated RBC % (auto) 0.0 (0.0-0.2) /100WBC Sodium 140 (135-145) mmol/L Potassium 3.7 (3.3-5.1) mmol/L Chloride 101 (96-108) mmol/L Carbon Dioxide 29 (22-29) mmol/L Anion Gap 14 (12-20) BUN 18 H (9-16) mg/dL Creatinine 1.22 (0.5-1.4) mg/dL Estim Creat Clear Calc 67.3 Estimated GFR 59 Random Glucose 102 (60-115) mg/dL Calcium 9.9 (8.4-10.2) mg/dL Total Bilirubin 0.4 (0.0-1.0) mg/dL AST 16 (5-37) U/L ALT 21 (0-40) U/L Alkaline Phosphatase 72 (39-117) U/L Total Protein 7.3 (6.5-8.0) g/dL Albumin 4.4 (3.5-5.0) g/dL Urine Color Yellow Urine Appearance Clear Urine pH 6.5 (5.0-9.0) Ur Specific [place] <= 1.005 (1.005-1.025) Urine Protein Negative (Neg-Trace) mg/dL Urine Glucose (UA) Negative (Negative) mg/dL Urine Ketones Negative (Negative) mg/dL Urine Blood Negative (Negative) Urine Nitrite Negative (Negative) Ur Leukocyte Esterase Trace H (Negative) Urine RBC 0-2 (0-2) /HPF Urine WBC 0-5 (0-5) /HPF Ur Squamous Epith Cells 0-2 (0-2) /HPF Urine Bacteria None Seen (None Seen) Hyaline Casts 0-2 (0-2) /LPF Independent Interpretation I performed an independent interpretation of an: CT Scan Independent Historian Clinical information obtained from an independent historian. History obtained from or confirmed by: Spouse External Record Review External record reviewed: Inpatient record Discharge Plan Discharge Clinical Impression: Diverticulitis, Low back pain Patient Disposition: Home, Self-Care Instructions: Diverticulitis (ED), Acute Low Back Pain (ED) Additional Instructions: Your seen in the emergency department for concerns for low back pain. A CT scan was done which showed question of early diverticulitis in the colon, bilateral renal cysts, a large hiatal hernia, and enlarged prostate, pulmonary nodules, and degenerative changes of the spine. None of these are emergent findings is recommended to follow-up with your primary care provider. You are safe for discharge at this time with plan for management of fever or discomfort with [id number] Tylenol and/or NSAID such as ibuprofen or naproxen with dosing as per packaging. Please return to the emergency department with new, worsening, or concerning emergent symptoms. Recommended to follow-up with your primary care provider in 24-48 hours for further treatment and management. Thank you for choosing [facility]. Prescriptions: No Action (DME) CPAP Machine/Device Device See Rx Instructions .Route Qty: 1 0RF Rx Instructions: Pressure 8 lisinopril 2.5 mg tablet 2.5 mg PO DAILY Qty: 90 8RF hydrochlorothiazide 25 mg tablet 25 mg PO DAILY Qty: 90 8RF ezetimibe 10 mg tablet 10 mg PO DAILY Qty: 90 8RF lorazepam 1 mg tablet 1 mg PO BID PRN (Reason: anxiety) Qty: 60 5RF tamsulosin 0.4 mg capsule 0.4 mg PO DAILY Qty: 90 8RF niacin 500 mg tablet 500 mg PO BID [place] 0.01 % drops 1 drp ophthalmic (eye) DAILY acetaminophen [Tylenol Extra Strength] 500 mg tablet 500 mg PO Q6H PRN ibuprofen 800 mg tablet 800 mg PO TID Referrals: Familia George MD [Primary Care Provider] - Print Language: Mohawk
[2023-10-09 12:39] LABS: Appearance Urine Clear; Color Urine Yellow; Glucose Urine UA Negative (Negative); Leukocyte Esterase Urine Trace (Negative); Nitrite Urine Negative (Negative); PH 6.5 (5.0-9.0); Specific Gravity - Urine <= 1.005 (1.005-1.025); UMIC TRIGGER UACC YES; Urine Blood Negative (Negative); Urine Ketones Negative (Negative); Urine Protein Negative (Neg-Trace)
[2023-10-09] MEDS: Ketorolac Tromethamine 15 MG/ML VIAL IM (12:39)
[2023-10-09 12:41] LABS: Bacteria Urine None Seen (None Seen); Hyaline Casts Urine 0-2 /LPF (0-2); RBC Urine 0-2 /HPF (0-2); Squamous Epithelial Cell Urine 0-2 /HPF (0-2); WBC Urine 0-5 /HPF (0-5)
[2023-10-09 16:11] VITALS: BP 142/82; PULSE 96; RESP 18; TEMP 36.3; O2SAT 95
== END 2023-10-09 16:12 | disposition home or self-care (01) ==
PROVIDERS: Nurse Practitioner Family; Emergency Provider Emergency Medicine; PCP Internal Medicine
DX: M54.50 Low back pain, unspecified (principal); M47.26 Other spondylosis with radiculopathy, lumbar region; K57.92 Diverticulitis of intestine, part unspecified, without perforation or abscess without bleeding; I10 Essential (primary) hypertension
CPT/HCPCS: 36415; 72100; 74176; 80053; 81001; 85025; 96372; 99283; 99284; J1885

== ENCOUNTER 2023-10-15 06:12 | Outpatient (REF) | payer MEDICARE, SELFPAY ==
[2023-10-15 06:40] LABS: MANUAL DIFF FLAG NO
[2023-10-15 07:11] LABS: Basophils Percent Auto 0.5 % (0-2); Eosinophils Absolute Auto 0.1 X10*3/uL (0.0-0.4); Eosinophils Percent Auto 1.7 % (0-4); Hematocrit 41.8 % (42.0-52.0); Hemoglobin 14.1 g/dl (14.0-18.0); Imm Gran Abs Auto 0.02 X10*3/uL (0.00-0.03); Imm Gran Pct Auto 0.3 % (0.0-0.4); Lymphocytes Absolute Auto 1.2 X10*3/uL (1.2-4.9); Lymphocytes Percent Auto 19.3 % (20-40); Mean Corpuscular HGB Conc 33.7 g/dl (31.0-36.0); Mean Corpuscular Hemoglobin 31.2 pg (27.0-33.0); Mean Corpuscular Volume 92.5 fL (80.0-98.0); Monocytes Absolute Auto 0.5 X10*3/uL (0.1-1.2); Monocytes Percent Auto 8.7 % (2-11); Neutrophils Absolute Auto 4.2 x10*3/uL (2.0-8.3); Neutrophils Percent Auto 69.5 % (45-73); Platelet Count 200 X10*3/uL (160-400); Red Blood Count 4.52 X10*6/uL (4.60-5.80)
[2023-10-15 07:43] LABS: Alanine Aminotransferase 18 U/L (0-40); Albumin Level 4.1 g/dL (3.5-5.0); Alkaline Phosphatase 65 U/L (39-117); Anion Gap 12 (12-20); Aspartate Amino Transferase 18 U/L (5-37); Bilirubin Total 0.4 mg/dL (0.0-1.0); Blood Urea Nitrogen 19 mg/dL (9-16); Calcium 9.3 mg/dL (8.4-10.2); Carbon Dioxide 27 mmol/L (22-29); Chloride 107 mmol/L (96-108); Cholesterol 171 mg/dL (<200); Estimated Glomerular Filt Rate > 60; Glucose Fasting 102 mg/dL (60-99); HDL Cholesterol 45 mg/dL (>40); LDL Cholesterol Calculated 111 mg/dL (<100); Potassium 3.5 mmol/L (3.3-5.1); Sodium 142 mmol/L (135-145); Total Protein 7.2 g/dL (6.5-8.0); Triglycerides 77 mg/dL (<150)
[2023-10-15 07:58] LABS: Prostate Specific Antigen Scr 3.54 ng/mL (<0.05-4.0)
== END 2023-10-15 06:13 | disposition home or self-care (01) ==
LOC: HO.LAB 06:12
PROVIDERS: PCP Internal Medicine; Visit Provider Internal Medicine
DX: Z00.00 Encounter for general adult medical examination without abnormal findings (principal); E78.5 Hyperlipidemia, unspecified; N28.9 Disorder of kidney and ureter, unspecified; D64.9 Anemia, unspecified; Z12.5 Encounter for screening for malignant neoplasm of prostate
CPT/HCPCS: 36415; 80053; 80061; 84153; 85025

== ENCOUNTER 2023-10-16 11:26 | Outpatient (AMB) | payer MEDICARE, SELFPAY ==
[2023-10-16 11:30] VITALS: BP 130/76; PULSE 90; O2SAT 98; BMI 27.6
--- NOTE | 2023-10-16 11:30 | A.OFFPC_ITS ---
Vital Signs 10/16/23 11:30 Height 6 ft 2 in Weight 215 lb BMI 27.6 BP 130/76 Blood Pressure Location Lt brachial Position Sitting Pulse 90 Pulse Source Pulse Oximeter Pulse Oximetry (%) 98 Oxygen Delivery Method Room Air Intake Visit Reasons: F/U Discuss CT scan Catalyst Concentration Operator Required: No Stamp Machine Servicer: Not Required per policy Accompanied by: Self / Same As Patient Allergies Penicillins [PENICILLINS] Allergy (Unknown, Verified 10/16/23 11:30) HIVES Tobacco use date assessed: 08/29/23 Fall risk assessment: No Falls in past year Last assessed Fall Risk: 10/16/23 Dental Screening Dental Screen Date: 08/29/23 HPI F/U Discuss CT scan HPI Details had some pulmonary nodules on a ct of the abdomen in ER; they are small and probably not significant, but will refer to pulmonary for their opinion [facility] Medical History Hypertension Right shoulder pain Spondylosis of lumbar region without myelopathy or radiculopathy Surgical History History of parathyroidectomy Family History Father Diabetes Heart failure Mother Respiratory failure Social History Housing: House Alcohol intake: never Patient Tobacco Use Status: Never used Tobacco e-Cigarette/Vaping Use: Never Used Second Hand Smoke Exposure: No service: No Current occupational status: retired Cognitive needs: No Hearing needs: No Vision needs: Yes Questionnaire Thrive Questionnaire Date Thrive assessed: 08/29/23 PATEL-7 AMB Questionnaire PATEL-7 Date PATEL - 7 assessed: 08/29/23 Source: Developed by Drs. Shmuel Blackman, Dian Westfall, Jones Palacio and colleagues, with an educational silvino from [employer]. Review of Systems Const Denies chills, Denies headache(s) and Denies weight loss ENT Denies headache(s) Card Denies chest pain, Denies syncope, Denies irregular heart rhythm and Denies dyspnea Resp Denies chest congestion, Denies cough and Denies dyspnea GI Denies abdominal pain, Denies change in stool character, Denies nausea and Denies vomiting Musc Denies deformity and Denies joint swelling Neuro Denies syncope and Denies headache(s) Physical exam (Primary Care) Vital Signs: Last Vital Signs Pulse 90 10/16/23 11:30 BP 130/76 10/16/23 11:30 Pulse Ox 98 10/16/23 11:30 Oxygen Delivery Method Room Air 10/16/23 11:30 BMI result Body Mass Index 27.6 Tobacco/Smoking Status: Tobacco use Status Tobacco use date assessed 08/29/23 10/16/23 11:30 Patient Tobacco Use Status Never used Tobacco 10/16/23 11:30 e-Cigarette/Vaping Use Never Used 10/16/23 11:30 Thrive Assessment: Date of Thrive Assessment Date Thrive assessed 08/29/23 10/16/23 11:30 Const General: cooperative, comfortable, no acute distress and alert Neck Neck: Yes no lymphadenopathy Thyroid: Thyroid normal Resp Effort & Inspection: normal respiratory effort Auscultation: clear to auscultation bilaterally Percussion: percussion normal Cardio Jugular venous distension: no JVD Palpation: normal PMI Rate: regular rate Rhythm: regular rhythm Heart sounds: S1 normal heart sound present and S2 normal heart sound present GI Inspection: Yes normal to inspection Palpation (GI): No hepatosplenomegaly present Skin General skin exam: no rashes or lesions noted Extrem General: Yes no clubbing, cyanosis or edema Assessment and Plan Assessment & Plan (1) Pulmonary nodules: Code(s): R91.8 - Other nonspecific abnormal finding of lung field Plan: ref pulm Orders: Referrals Urology Referral R35.0 - Frequency of micturition Pulmonary Medicine Referral R91.8 - Other nonspecific abnormal finding of lung field Coding Level of Care Code Est Pt Level 3 (02297) Diagnoses Pulmonary nodules R91.8
== END 2023-10-16 12:08 | disposition home or self-care (01) ==
PROVIDERS: PCP Internal Medicine; Visit Provider Internal Medicine
DX: R91.8 Other nonspecific abnormal finding of lung field (principal)
CPT/HCPCS: 99213

== ENCOUNTER 2023-12-02 13:51 | Outpatient (AMB) | payer MEDICARE, SELFPAY ==
--- NOTE | 2023-12-02 14:02 | A.OFFVIS_ITS ---
Intake Visit Reasons: Frequency of micturition Intake Note: New Patient presents for initial visit for urinary frequency Urology Medications: Tamsulosin Blood Thinner: none PVR: 373 ml's Cook Seafood Required: No Accompanied by: Self / Same As Patient Allergies Penicillins [PENICILLINS] Allergy (Unknown, Verified 12/02/23 14:41) HIVES Medication List - Last Reconciled 12/02/23 by CLAIRE Mohr acetaminophen (Tylenol Extra Strength) 500 mg PO Q6H PRN bimatoprost 0.01% 1 drp ophthalmic (eye) DAILY CPAP (CPAP Machine/Device) Pressure 8 ezetimibe 10 mg PO DAILY hydrochlorothiazide 25 mg PO DAILY ibuprofen 800 mg PO TID lisinopril 2.5 mg PO DAILY lorazepam 1 mg PO BID PRN niacin 500 mg PO BID terazosin 5 mg PO BEDTIME 30 days HPI Comments Details: Sage Ivory is a pleasant 68 year old male patient of Dr. George. He has a past medical history of hypertension, spondylosis of lumbar region without myelopathy or radiculopathy. He presents to the office today as a new patient for urinary frequency. In discussion with the patient today reports having followed up with his PCP in discussing ongoing lower urinary tract symptoms at which time referral to Urology was made for further assessment evaluation. In office urinalysis results reviewed with the patient today. PVR 373 mL. He reports having started Flomax with his PCP and feels this has been helpful in decreasing episodes of nocturia however he does continue with episodes of urinary frequency throughout the day. Discussed at length incomplete bladder emptying in relation to lower urinary tract symptoms patient is experiencing. In review of patient's chart it appears PSAs are as follows: PSA: 05/31 2.2, 06/01 2.6, 11/04 3.5 He otherwise denies incontinence, hematuria, dysuria, foul smelling urine, changes to urinary stream, flank pain, fever, and or chills. Discussed obta ining retroperitoneal ultrasound for further assessment evaluation. He otherwise offers no other issues or concerns at this time. [facility] Medical History (Updated 12/02/23 @ 14:35 by CLAIRE Mohr) Encounter for screening Right shoulder pain Hypertension Spondylosis of lumbar region without myelopathy or radiculopathy Surgical History History of parathyroidectomy Family History Father Diabetes Heart failure Mother Respiratory failure Social History Housing: House Alcohol intake: never Patient Tobacco Use Status: Never used Tobacco e-Cigarette/Vaping Use: Never Used Second Hand Smoke Exposure: No service: No Current occupational status: retired Cognitive needs: No Hearing needs: No Vision needs: Yes Review of Systems Const Reports no additional complaints Eyes Reports no additional complaints ENT Reports no additional complaints Card Reports as per HPI Resp Reports no additional complaints GI Reports no additional complaints Reports as per HPI Musc Reports as per HPI Neuro Reports no additional complaints Psych Reports no additional complaints Endo Reports no additional complaints Reynold/Lymph Reports no additional complaints Aller/Immun Reports no additional complaints Physical Exam Const General: cooperative, comfortable, no acute distress, well developed, alert and awake Orientation/consciousness: patient oriented x3 HEENT Head: Yes normal to inspection, Yes normocephalic and Yes atraumatic Ears: hearing grossly normal bilaterally Eyes General: appearance normal, both eyes and all related structures Neck Neck: Yes normal visual inspection and Yes trachea midline Chest Chest palpation & inspection: normal inspection of the chest Resp Effort & Inspection: normal respiratory effort and able to speak in complete sentences Cardio Rate: regular rate GI Inspection: Yes normal to inspection General: Yes no CVA tenderness Back/Spine/Pelvis Back: no CVA tenderness Skin General skin exam: no rashes or lesions noted Neuro General: patient oriented x3 Extrem General: Yes normal to inspection Psych Appearance: grossly normal and well kempt Mental Status: mental status grossly normal Speech and movement: Normal speech and movement present and Clear speech present Affect: normal affect Attitude: cooperative Thought process: Normal thought process present Thought content: Normal thought content present Insight: Fair insight present (Psych) Judgement: Fair judgement present (Psych) Office Procedures Post Void Residual Post Residual Void Post Void Residual (PVR): 373 [id number] Void Residual by ultrasound Results AMB Urinalysis, Automated UA Leukoctes 0 Bird/uL Last Edit by Mamie Monroy on 12/02/23 14:25 UA Nitrite Negative Last Edit by Mamie Monroy on 12/02/23 14:25 UA Urobilinogen 0.2 mg/dL Last Edit by Mamie Rubihan on 12/02/23 14:25 UA Protein 0 mg/dL Last Edit by Mamie Monroy on 12/02/23 14:25 UA pH 6.0 Last Edit by Mamie Monroy on 12/02/23 14:25 UA Blood 25 Isai/uL Last Edit by Mamie Monroy on 12/02/23 14:25 UA Specific [place] 1.010 Last Edit by Mamie Monroy on 12/02/23 14:25 UA Ketone Negative Last Edit by Mamie Monroy on 12/02/23 14:25 UA Bilirubin 0 mg/dL Last Edit by Mamie Monroy on 12/02/23 14:25 UA Glucose 0 mg/dL Last Edit by Mamie Monroy on 12/02/23 14:25 Results Reviewed Results Reviewed: Laboratory Last Values Urine pH (Auto) 6.0 12/02/23 14:23 Specific [place] (Auto) 1.010 12/02/23 14:23 Urine Protein (Auto) 0 mg/dL 12/02/23 14:23 Glucose (UA)(Auto) 0 mg/dL 12/02/23 14:23 Urine Ketones (Auto) Negative 12/02/23 14:23 Urine Blood (Auto) 25 Isai/uL 12/02/23 14:23 Urine Nitrite (Auto) Negative 12/02/23 14:23 Urine Bilirubin (Auto) 0 mg/dL 12/02/23 14:23 Urine Urobilinogen (Auto) 0.2 mg/dL 12/02/23 14:23 Leukocyte Esterase (Auto) 0 Bird/uL 12/02/23 14:23 Assessment & Plan Assessment & Plan (1) Urinary frequency: Code(s): R35.0 - Frequency of micturition Category: Medical (2) Incomplete bladder emptying: Code(s): R33.9 - Retention of urine, unspecified Category: Medical Plan In office urinalysis results reviewed with the patient today; as noted above. Stop Flomax. Start terazosin 5 mg at bedtime. Most recent PSA results reviewed with the patient today; as noted above. Will obtain retroperitoneal ultrasound for further assessment evaluation. Discussed attempting to double void to assist with incomplete bladder emptying. Discussed at length potential causes for lower urinary tract symptoms patient is experiencing. Discussed potential causes and affects of incomplete bladder emptying. Follow-up in 6-8 weeks with imaging and labs to be completed prior; or sooner with any issues, concerns, and or questions. Orders: Orders AMB Post Void Residual by ultrasound Today Z13.9 - Encounter for screening, unspecified AMB Urinalysis Automated Today Z13.9 - Encounter for screening, unspecified US retroperitoneal comp Today R33.9 - Retention of urine, unspecified, R35.0 - Frequency of micturition Urine Cytology Today R33.9 - Retention of urine, unspecified, Z13.9 - Encounter for screening, unspecified Medications: New terazosin 5 mg PO BEDTIME 30 caps 1RF 30 days N40.1 - Benign prostatic hyperplasia with lower urinary tract symptoms, R35.0 - Frequency of micturition Discontinued tamsulosin Discontinued Reason: Doctor's Order 0.4 mg PO DAILY 90 caps 8RF Patient Instructions: The patient had an opportunity to ask questions regarding the treatment plan. All questions were answered. Physical exam, labs, and imaging were discussed and reviewed in detail. As well as risks, benefits, and discussion of treatment choices. No major barriers to understanding were identified. The patient expressed understanding and agreement with the above treatment plan. The patient was made aware they should contact our office by phone for worsening of their current condition, the appearance of new symptoms, or with any questions or concerns. Compliance is encouraged with any medications and follow up testing that is ordered. It is a privilege to be allowed the opportunity to participate in? your urological care.? Again, if you have any questions or concerns If you have any questions or concerns please do not hesitate to contact me. The office is [phone]. This note is constructed using voice recognition software. While every effort has been made to ensure accuracy clinical science consultant errors may have been included. Yours sincerely, CLAIRE Mohr Coding Level of Care Code New Pt Level 4 (02736) Diagnoses Urinary frequency R35.0 Incomplete bladder emptying R33.9 CPT Codes Post Residual Void - PVR CPT Code: 18921-Vpop Void Residual by ultrasound ([id number])
== END 2023-12-02 14:40 | disposition home or self-care (01) ==
PROVIDERS: PCP Internal Medicine; Visit Provider Nurse Practitioner Family
DX: R35.0 Frequency of micturition (principal); R33.9 Retention of urine, unspecified; Z13.9 Encounter for screening, unspecified
CPT/HCPCS: 99204

== ENCOUNTER 2023-12-02 13:51 | Outpatient (REF) | payer MEDICARE, SELFPAY ==
[2023-12-02 17:16] LABS: Urine Cytology See Pathology rpt
== END 2023-12-02 13:52 | disposition home or self-care (01) ==
LOC: HO.LNP 13:51
PROVIDERS: PCP Internal Medicine; Visit Provider Nurse Practitioner Family
DX: N40.1 Benign prostatic hyperplasia with lower urinary tract symptoms (principal); R33.8 Other retention of urine; R35.0 Frequency of micturition; R39.15 Urgency of urination
CPT/HCPCS: 51798; 81003; 88112; 99202

== ENCOUNTER 2024-01-07 13:33 | Outpatient (AMB) | payer MEDICARE, SELFPAY ==
--- NOTE | 2024-01-07 13:40 | A.OFFVIS_ITS ---
Vital Signs 01/07/24 13:41 Height 6 ft 2 in Weight 207 lb BMI 26.6 BP 102/64 Blood Pressure Location Lt brachial Position Sitting Pulse 92 Pulse Source Doppler Pulse Oximetry (%) 95 Oxygen Delivery Method Room Air Intake Visit Reasons: abnormal finding of lung field Allergies Penicillins [PENICILLINS] Allergy (Unknown, Verified 01/07/24 13:43) HIVES HPI HPI abnormal finding of lung field: Details: 68-year-old gentleman, minimal smoker in his late teens/early 20s, with no underlying history of lung disease referred for evaluation of incidentally noted 5 mm and under pulmonary nodules on CT abdomen/pelvis was obtained for workup of back pain. Patient denies unintended weight loss. Patient does have family history of lung disease - bronchiectasis in his mother. He denies prior personal history of lung disease. He has been employed without exposure to industrial dusts. Patient has mild seasonal allergies usually in the spring. He does have cats as pets. He denies dyspnea on exertion cough, sputum production or wheezing. [facility] Medical History (Updated 12/02/23 @ 14:35 by ИРИНА Mohr) Encounter for screening Right shoulder pain Hypertension Spondylosis of lumbar region without myelopathy or radiculopathy Surgical History History of parathyroidectomy Family History Father Diabetes Heart failure Mother Respiratory failure Social History Housing: House Alcohol intake: never Patient Tobacco Use Status: Never used Tobacco e-Cigarette/Vaping Use: Never Used Second Hand Smoke Exposure: No service: No Current occupational status: retired Cognitive needs: No Hearing needs: No Vision needs: Yes Review of Systems Const Denies daytime sleepiness, Denies excessive sweating, Denies fatigue, Denies fever(s), Denies lethargy, Denies malaise, Denies night sweats, Denies snoring and Denies weight loss Eyes Denies blurry vision and Denies itchy eyes ENT Denies nasal congestion, Denies post nasal drip, Denies sinus pain, Denies sinus pressure and Denies other ( Thrush) Card Denies chest pain, Denies pedal edema, Denies dyspnea, Denies orthopnea and Denies paroxysmal nocturnal dyspnea Resp Denies cough, Denies hemoptysis, Denies excessive phlegm production, Denies dyspnea, Denies snoring and Denies wheezing GI Denies abdominal pain and Denies heartburn Musc Denies myalgias, Denies arthralgias and Denies joint swelling Skin/Breast Denies rash Neuro Denies memory loss and Denies seizure-like activity Psych Denies abnormal sleep pattern, Denies anxiety and Denies memory loss Endo Denies excessive sweating, Denies fatigue and Denies heat intolerance Reynold/Lymph Denies easy bruising Aller/Immun Denies itchy eyes, Denies seasonal rhinorrhea and Denies wheezing Physical Exam Vital Signs: Last Vital Signs Pulse 92 01/07/24 13:41 BP 102/64 01/07/24 13:41 Pulse Ox 95 01/07/24 13:41 Oxygen Delivery Method Room Air 01/07/24 13:41 BMI result Body Mass Index 26.6 Const General: no acute distress and alert Nutritional Appearance: not obese Orientation/consciousness: Other orientation findings ( oriented) HEENT Head: Yes atraumatic Eyes General: appearance normal, both eyes and all related structures Sclerae: sclerae normal EOM: EOMs intact bilaterally Neck Neck: Yes supple Lymphatic: no lymphadenopathy noted Resp Effort & Inspection: normal respiratory effort and no use of accessory muscles Auscultation: clear to auscultation bilaterally Cardio Rate: regular rate Rhythm: regular rhythm Heart sounds: no gallops, no murmurs and no rubs Skin General skin exam: other ( warm) Extrem General: No clubbing, No cyanosis and No edema Assessment & Plan Assessment & Plan (1) Pulmonary nodules: Code(s): R91.8 - Other nonspecific abnormal finding of lung field Category: Medical Plan: Incidentally noted pulmonary nodules 5 mm and under on CT abdomen/pelvis. Will obtain dedicated CT chest, if no nodules larger than 6 mm noted, then will repeat CT chest in 6 months. Orders: Orders CT chest wo IV con Today R91.8 - Other nonspecific abnormal finding of lung field CT chest wo IV con 06/28/24 R91.8 - Other nonspecific abnormal finding of lung field Coding Level of Care Code New Pt Level 3 (37055) Diagnoses Pulmonary nodules R91.8
[2024-01-07 13:41] VITALS: BP 102/64; PULSE 92; O2SAT 95; BMI 26.6
== END 2024-01-07 14:01 | disposition home or self-care (01) ==
PROVIDERS: PCP Internal Medicine; Visit Provider Internal Medicine Pulmonary Disease
DX: R91.8 Other nonspecific abnormal finding of lung field (principal)
CPT/HCPCS: 99203

== ENCOUNTER → 2024-01-07 13:33 | Outpatient (BNVA) | payer MEDICARE, SELFPAY | PROVIDERS: PCP Internal Medicine; Visit Provider Internal Medicine Pulmonary Disease | DX: R91.8 Other nonspecific abnormal finding of lung field (principal) | CPT/HCPCS: 99202 ==

== ENCOUNTER 2024-01-09 09:50 | Outpatient (REF) | payer MEDICARE, SELFPAY ==
--- NOTE | ~2024-01-09 | CT_ITS ---
EXAMINATION: CT CHEST WITHOUT CONTRAST CLINICAL INFORMATION: Pulmonary nodules. COMPARISON: CT abdomen and pelvis dated 10/09/2023; chest radiographs dated 08/08/2022. TECHNIQUE: Multidetector volumetric CT imaging of the chest was done. Axial MIP volume rendering provided. Sagittal and coronal reformatted images were obtained. This CT examination was performed using dose optimization techniques as appropriate, variously including the following: *Automated exposure control *Adjustment of mA and/or kV according to patient size (this includes techniques or standardized protocols for targeted exams where dose is matched to indication/reason for exam; i.e. extremities or head) *Use of iterative reconstruction technique DLP: 199 mGy-cm FINDINGS: CRUCIBLE FURNACE TENDER: The lungs are symmetrically well-expanded and grossly clear. There is a mild thoracolumbar dextroscoliosis. LUNGS: There is biapical pleural and parenchymal scarring. There are approximately 10 right lung nodules. The largest within the right upper lobe is seen anteriorly measuring 4 mm (5:290). Abutting the right major fissure (5:343), a 6 mm benign pleural-based lymph node is seen. In the lateral basal segment of the right lower lobe (5:478 and 480), 6 mm and 4 mm noncalcified nodules are seen. In the posterior basal segment of the right lower lobe (5:457), a 6 mm noncalcified nodule is seen. There are approximately 10 left lung nodules. One of the largest within the left upper lobe is situated laterally measuring 4 mm (5:245). At the posterior left base (5:556 and 534), dominant 4 mm and 5 mm noncalcified subpleural nodules are seen. No mass, infiltrate or groundglass opacity is seen. There is no generalized increase in peripheral interlobular septal markings. No generalized small airway thickening is seen. The central airways appear patent. MEDIASTINUM: The mediastinum is normal. CORONARY ARTERY CALCIFICATION: None visualized on this study. PLEURA: There is no pleural effusion. No pleural mass or thickening. AXILLA: No lymphadenopathy. UPPER ABDOMEN: There is a moderately large hiatus hernia. The adrenal glands are unremarkable. OSSEOUS STRUCTURES: There is multi-level thoracolumbar spondylosis. No acute or aggressive osseous finding is noted. CT/CT chest wo IV con IMPRESSION: 1. Multiple bilateral nonspecific, noncalcified pulmonary nodules are seen, the largest on the right measuring 6 mm. According to the UPDATED 2017 Fleischner Society recommendations, the advised follow-up imaging for multiple solid nodules, the largest measuring 6 mm or greater, is: LOW RISK PATIENT: CT at 3-6 months, then consider CT at 18-24 months. HIGH RISK PATIENT: CT at 3-6 months, then at 18-24 months. 2. No mass, infiltrate or groundglass opacity is seen. 3. There is no thoracic lymphadenopathy or pleural effusion. 4. There is multi-level thoracolumbar spondylosis. No acute or aggressive osseous finding is seen. 5. There is a moderately large hiatus hernia. Fleischner guidelines were followed.
== END 2024-01-09 09:51 | disposition home or self-care (01) ==
LOC: HO.CT 09:50
PROVIDERS: PCP Internal Medicine; Visit Provider Internal Medicine Pulmonary Disease
DX: R91.8 Other nonspecific abnormal finding of lung field (principal)
CPT/HCPCS: 71250

== ENCOUNTER 2024-02-02 09:40 | Outpatient (REF) | payer MEDICARE, SELFPAY ==
--- NOTE | ~2024-02-02 | US_ITS ---
EXAMINATION: US RETROPERITONEAL COMPLETE (RENAL) CLINICAL INFORMATION: Urinary retention. COMPARISON: CT abdomen and pelvis 10/09/2023. TECHNIQUE: Real-time imaging of the kidneys and bladder. FINDINGS: RIGHT KIDNEY: 10.2 x 5.3 x 5.7 cm (SAG x AP x TRV). The kidney is normal in size, contour, and echogenicity. Renal cortical thickness is normal. No calculi or focal parenchymal lesions. No hydronephrosis. Multiple benign Bosniak class I renal cysts are noted, the largest measuring 3.6 cm which require no additional imaging or follow-up. No solid renal masses are seen. LEFT KIDNEY: 14.5 x 5.7 x 4.7 cm (SAG x AP x TRV). The kidney is normal in size, contour, and echogenicity. Renal cortical thickness is normal. No calculi or focal parenchymal lesions. No hydronephrosis. Multiple benign Bosniak class I and Bosniak class II renal cysts are noted, the largest is Bosniak class II with a septation measuring 4.8 cm. These require no additional imaging or follow-up. No solid renal masses are seen. BLADDER: Well distended and normal. Bilateral ureteral jets are not demonstrated. Prevoid bladder volume is 553 mL. Postvoid bladder volume is 353 mL. There is a cystic structure inferior to the bladder measuring 2.4 cm which corresponds to the CT finding of a bladder diverticulum seen just above the ureter insertion on the right (3:72). PROSTATE: The prostate is mildly enlarged at 58 mL. US/US retroperitoneal comp IMPRESSION: 1. Mildly enlarged prostate with large post void residual. 2. Bladder diverticulum. 3. Bilateral benign Bosniak class I and Bosniak class II renal cysts which require no additional imaging or follow-up.
== END 2024-02-02 09:41 | disposition home or self-care (01) ==
LOC: HO.US 09:40
PROVIDERS: PCP Internal Medicine; Visit Provider Nurse Practitioner Family
DX: R33.9 Retention of urine, unspecified (principal); R35.0 Frequency of micturition
CPT/HCPCS: 76770

== ENCOUNTER 2024-02-09 08:34 | Outpatient (REF) | payer MEDICARE, SELFPAY ==
[2024-02-09 16:25] LABS: Urine Cytology See Pathology rpt
== END 2024-02-09 08:35 | disposition home or self-care (01) ==
LOC: HO.LNP 08:34
PROVIDERS: PCP Internal Medicine; Visit Provider Nurse Practitioner Family
DX: R35.0 Frequency of micturition (principal); R33.9 Retention of urine, unspecified; R89.6 Abnormal cytological findings in specimens from other organs, systems and tissues; N40.0 Benign prostatic hyperplasia without lower urinary tract symptoms
CPT/HCPCS: 51798; 81003; 88112; 99212

== ENCOUNTER 2024-02-09 08:34 | Outpatient (AMB) | payer MEDICARE, SELFPAY ==
--- NOTE | 2024-02-09 08:33 | MHC.OFFVIS ---
Intake Visit Reasons: 2m/US(pending 02/01) Intake Note: Patient presents today for follow up on: Urinary Frequency, Incomplete Bladder Emptying, and ultasound results Imaging Completed: 02/02/24 Urology Medications: Terazosin Blood Thinner: none PVR: 228ml's Overlay Operator Required: No Accompanied by: Self / Same As Patient Allergies Penicillins [PENICILLINS] Allergy (Unknown, Verified 02/09/24 21:53) HIVES Medication List - Last Reconciled 02/09/24 by CIERA Mohr-HERMELINDA acetaminophen (Tylenol Extra Strength) 500 mg PO Q6H PRN bimatoprost 0.01% 1 drp ophthalmic (eye) DAILY CPAP (CPAP Machine/Device) Pressure 8 ezetimibe 10 mg PO DAILY hydrochlorothiazide 25 mg PO DAILY lisinopril 2.5 mg PO DAILY lorazepam 1 mg PO BID PRN niacin 500 mg PO BID terazosin 5 mg PO BEDTIME 30 days HPI Comments Details: Sage Ivory is a pleasant 68 year old male patient of Dr. George. He has a past medical history of hypertension, spondylosis of lumbar region without myelopathy or radiculopathy. He presents to the office today for follow-up. Of note, patient was seen approximately 2 months ago as a new patient for urinary frequency at which time a retroperitoneal ultrasound was ordered for further assessment evaluation and the patients Flomax was discontinued and terazosin 5 mg daily was initiated. Recent retroperitoneal ultrasound results reviewed with the patient today. Bilateral kidneys with no lesions, calculi, and or hydronephrosis noted. Bilateral renal cysts noted that require no additional imaging or follow-up per radiology report. The bladder is well distended and normal. Pre void bladder volume is approximately 550 mL. Postvoid bladder volume is approximately 350 mL. There is a cystic structure inferior to the bladder measuring 2.4 cm which corresponds with CT findings of bladder diverticulum. The prostate mildly enlarged measuring approximately 58 mL. He reports feeling urinary frequency has somewhat improved with 5 mg of terazosin daily. In office urinalysis results reviewed with the patient today. Persistent microscopic hematuria noted. Discussed previous urine cytology results with the patient today 12/04 Atypical urothelial cells. PVR today 228mls which is improved since last office visit which was 373 mL. When asked he denies any previous smoking history and or workplace chemical exposure. Discussed given retroperitoneal ultrasound of possible cystic structure and abnormal cytology further assessment evaluation with in office cystoscopy. Discussed at length incomplete bladder emptying. He otherwise denies incontinence, hematuria, dysuria, foul smelling urine, changes to urinary stream, flank pain, fever, and or chills. In review of patient's chart it appears PSAs are as follows: PSA: 05/31 2.2, 06/01 2.6, 11/04 3.5 PFS Medical History Encounter for screening Right shoulder pain Hypertension Spondylosis of lumbar region without myelopathy or radiculopathy Surgical History History of parathyroidectomy Family History Father Diabetes Heart failure Mother Respiratory failure Social History Housing: House Alcohol intake: never Patient Tobacco Use Status: Never used Tobacco e-Cigarette/Vaping Use: Never Used Second Hand Smoke Exposure: No service: No Current occupational status: retired Cognitive needs: No Hearing needs: No Vision needs: Yes Review of Systems Const Reports no additional complaints Eyes Reports no additional complaints ENT Reports no additional complaints Card Reports as per HPI Resp Reports no additional complaints GI Reports no additional complaints Reports as per HPI Musc Reports as per HPI Neuro Reports no additional complaints Psych Reports no additional complaints Endo Reports no additional complaints Reynold/Lymph Reports no additional complaints Aller/Immun Reports no additional complaints Physical Exam Const General: cooperative, healthy appearing, comfortable, no acute distress, well developed, alert and awake Orientation/consciousness: patient oriented x3 Limitations: no limitations HEENT Head: Yes normal to inspection, Yes normocephalic and Yes atraumatic Ears: hearing grossly normal bilaterally Eyes General: appearance normal, both eyes and all related structures Neck Neck: Yes normal visual inspection and Yes trachea midline Chest Chest palpation & inspection: normal inspection of the chest Resp Effort & Inspection: normal respiratory effort and able to speak in complete sentences Cardio Rate: regular rate GI Inspection: Yes normal to inspection General: Yes no CVA tenderness Back/Spine/Pelvis Back: no CVA tenderness Skin General skin exam: no rashes or lesions noted Neuro General: patient oriented x3 Extrem General: Yes normal to inspection Psych Appearance: grossly normal and well kempt Mental Status: mental status grossly normal Speech and movement: Normal speech and movement present and Clear speech present Affect: normal affect Attitude: cooperative Thought process: Normal thought process present Thought content: Normal thought content present Insight: Fair insight present (Psych) Judgement: Fair judgement present (Psych) Office Procedures Post Void Residual Post Residual Void Post Void Residual (PVR): 228 [id number] Void Residual by ultrasound Results AMB Urinalysis, Automated UA Leukoctes 0 Bird/uL Last Edit by CartiCurehan on 02/09/24 08:49 UA Nitrite Negative Last Edit by Your Image by Brooke on 02/09/24 08:49 UA Urobilinogen 0.2 mg/dL Last Edit by Your Image by Brooke on 02/09/24 08:49 UA Protein 0 mg/dL Last Edit by Your Image by Brooke on 02/09/24 08:49 UA pH 6.0 Last Edit by Your Image by Brooke on 02/09/24 08:49 UA Blood 25 Isai/uL Last Edit by Your Image by Brooke on 02/09/24 08:49 UA Specific Lyons 1.015 Last Edit by Your Image by Brooke on 02/09/24 08:49 UA Ketone Negative Last Edit by Your Image by Brooke on 02/09/24 08:49 UA Bilirubin 0 mg/dL Last Edit by Your Image by Brooke on 02/09/24 08:49 UA Glucose 0 mg/dL Last Edit by Your Image by Brooke on 02/09/24 08:49 Results Reviewed Results Reviewed: Laboratory Last Values Urine pH (Auto) 6.0 02/09/24 08:48 Specific Lyons (Auto) 1.015 02/09/24 08:48 Urine Protein (Auto) 0 mg/dL 02/09/24 08:48 Glucose (UA)(Auto) 0 mg/dL 02/09/24 08:48 Urine Ketones (Auto) Negative 02/09/24 08:48 Urine Blood (Auto) 25 Isai/uL 02/09/24 08:48 Urine Nitrite (Auto) Negative 02/09/24 08:48 Urine Bilirubin (Auto) 0 mg/dL 02/09/24 08:48 Urine Urobilinogen (Auto) 0.2 mg/dL 02/09/24 08:48 Leukocyte Esterase (Auto) 0 Bird/uL 02/09/24 08:48 Date of Service: 02/02/24 EXAMINATION: US RETROPERITONEAL COMPLETE (RENAL) FINDINGS: RIGHT KIDNEY: 10.2 x 5.3 x 5.7 cm (SAG x AP x TRV). The kidney is normal in size, contour, and echogenicity. Renal cortical thickness is normal. No calculi or focal parenchymal lesions. No hydronephrosis. Multiple benign Bosniak class I renal cysts are noted, the largest measuring 3.6 cm which require no additional imaging or follow-up. No solid renal masses are seen. LEFT KIDNEY: 14.5 x 5.7 x 4.7 cm (SAG x AP x TRV). The kidney is normal in size, contour, and echogenicity. Renal cortical thickness is normal. No calculi or focal parenchymal lesions. No hydronephrosis. Multiple benign Bosniak class I and Bosniak class II renal cysts are noted, the largest is Bosniak class II with a septation measuring 4.8 cm. These require no additional imaging or follow-up. No solid renal masses are seen. BLADDER: Well distended and normal. Bilateral ureteral jets are not demonstrated. Prevoid bladder volume is 553 mL. Postvoid bladder volume is 353 mL. There is a cystic structure inferior to the bladder measuring 2.4 cm which corresponds to the CT finding of a bladder diverticulum seen just above the ureter insertion on the right (3:72). PROSTATE: The prostate is mildly enlarged at 58 mL. IMPRESSION: 1. Mildly enlarged prostate with large post void residual. 2. Bladder diverticulum. 3. Bilateral benign Bosniak class I and Bosniak class II renal cysts which require no additional imaging or follow-up. Assessment & Plan Assessment & Plan (1) Urinary frequency: Code(s): R35.0 - Frequency of micturition Category: Medical (2) Incomplete bladder emptying: Code(s): R33.9 - Retention of urine, unspecified Category: Medical (3) Abnormal cytology: Code(s): R89.6 - Abnormal cytological findings in specimens from other organs, systems and tissues Category: Medical (4) Enlarged prostate: Code(s): N40.0 - Benign prostatic hyperplasia without lower urinary tract symptoms Category: Medical Plan In office urinalysis results reviewed with the patient today; will send for urine cytology. Previous urine cytology results reviewed with the patient today; as noted above. PVR 228 mL; improved since last office visit. Discussed at length potential causes and affects of incomplete bladder emptying. Recent retroperitoneal ultrasound results reviewed with the patient today; as noted above. Discussed increasing terazosin to 10 mg at bedtime Discussed initiation of finasteride. Discussed lifestyle modifications to assist with incomplete bladder emptying. Follow-up in office cystoscopy; or sooner with any issues, concerns, and or questions. Orders: Orders AMB Urinalysis Automated 02/09/24 Z13.9 - Encounter for screening, unspecified AMB Post Void Residual by ultrasound 02/09/24 R33.9 - Retention of urine, unspecified Urine Cytology 02/09/24 R35.0 - Frequency of micturition Medications: Changed From terazosin 5 mg PO BEDTIME 30 days 30 caps 1RF N40.1 - Benign prostatic hyperplasia with lower urinary tract symptoms, R35.0 - Frequency of micturition To terazosin 10 mg (2 x 5 mg) PO BEDTIME 180 caps 1RF 90 days N40.1 - Benign prostatic hyperplasia with lower urinary tract symptoms, R35.0 - Frequency of micturition Patient Instructions: The patient had an opportunity to ask questions regarding the treatment plan. All questions were answered. Physical exam, labs, and imaging were discussed and reviewed in detail. As well as risks, benefits, and discussion of treatment choices. No major barriers to understanding were identified. The patient expressed understanding and agreement with the above treatment plan. The patient was made aware they should contact our office by phone for worsening of their current condition, the appearance of new symptoms, or with any questions or concerns. Compliance is encouraged with any medications and follow up testing that is ordered. It is a privilege to be allowed the opportunity to participate in? your urological care.? Again, if you have any questions or concerns If you have any questions or concerns please do not hesitate to contact me. The office is [phone]. This note is constructed using voice recognition software. While every effort has been made to ensure accuracy galley worker errors may have been included. Yours sincerely, CLAIRE Mohr Coding Level of Care Code Est Pt Level 3 (93380) Complex EM visit Add On G2211 Diagnoses Urinary frequency R35.0 Incomplete bladder emptying R33.9 Abnormal cytology R89.6 Enlarged prostate N40.0 CPT Codes Post Residual Void - PVR CPT Code: [id number]-[id number] Void Residual by ultrasound ([id number])
== END 2024-02-09 09:19 | disposition home or self-care (01) ==
PROVIDERS: PCP Internal Medicine; Visit Provider Nurse Practitioner Family
DX: R35.0 Frequency of micturition (principal); R33.9 Retention of urine, unspecified; R89.6 Abnormal cytological findings in specimens from other organs, systems and tissues; N40.0 Benign prostatic hyperplasia without lower urinary tract symptoms
CPT/HCPCS: 99213; G2211

== ENCOUNTER 2024-03-09 09:23 | Outpatient (AMB) | payer MEDICARE, SELFPAY ==
[2024-03-09 09:24] VITALS: BP 122/74; PULSE 82; O2SAT 94; BMI 26.7
--- NOTE | 2024-03-09 09:24 | MHC.PC.OV ---
Vital Signs 03/09/24 09:24 Height 6 ft 2 in Weight 208 lb BMI 26.7 BP 122/74 Blood Pressure Location Lt brachial Position Sitting Pulse 82 Pulse Source Pulse Oximeter Pulse Oximetry (%) 94 Oxygen Delivery Method Room Air Intake Visit Reasons: 6 month f/u Senior Php Web Developer Required: No Accompanied by: Self / Same As Patient Allergies Penicillins [PENICILLINS] Allergy (Unknown, Verified 03/09/24 09:25) HIVES Medication List - Last Reconciled 03/09/24 by Familia George MD acetaminophen (Tylenol Extra Strength) 500 mg PO Q6H PRN bimatoprost 0.01% 1 drp ophthalmic (eye) DAILY CPAP (CPAP Machine/Device) Pressure 8 ezetimibe 10 mg PO DAILY hydrochlorothiazide 25 mg PO DAILY lisinopril 2.5 mg PO DAILY lorazepam 1 mg PO BID PRN niacin 500 mg PO BID terazosin 10 mg (2 x 5 mg) PO BEDTIME 90 days Tobacco use date assessed: 08/29/23 Fall risk assessment: No Falls in past year Last assessed Fall Risk: 03/09/24 Dental Screening Dental Screen Date: 08/29/23 HPI 6 month f/u HPI Details HTN on Rx; compliantand doing well PFSH Medical History Encounter for screening Right shoulder pain Hypertension Spondylosis of lumbar region without myelopathy or radiculopathy Surgical History History of parathyroidectomy Family History Father Diabetes Heart failure Mother Respiratory failure Social History Housing: House Alcohol intake: never Patient Tobacco Use Status: Never used Tobacco Tobacco use type: Cigarette e-Cigarette/Vaping Use: Never Used Second Hand Smoke Exposure: No service: No Current occupational status: retired Cognitive needs: No Hearing needs: No Vision needs: Yes Questionnaire PHQ-9 Over the last 2 weeks, how often have you been bothered by any of the following problems? 1. Little interest or pleasure in doing things: not at all 2. Feeling down, depressed, or hopeless: not at all 3. Trouble falling or staying asleep, or sleeping too much: not at all 4. Feeling tired or having little energy: not at all 5. Poor appetite or overeating: not at all 6. Feeling bad about yourself - or that you are a failure or have let yourself or your family down: not at all 7. Trouble concentrating on things, such as reading the newspaper or watching television: not at all 8. Moving or speaking so slowly that other people could have noticed. Or the opposite - being so fidgety or restless that you have been moving around a lot more than usual: not at all 9. Thoughts that you would be better off or of hurting yourself in some way: not at all Total score: 0 Depression Screening Interpretation: Negative Depression Screening Done: Yes 57570 - PHQ-9 Billing: Yes Source: Developed by Drs. Shmuel Blackman, Dian Westfall, Jones Palacio and colleagues, with an educational silvino from [employer]. Thrive Questionnaire Date Thrive assessed: 08/29/23 AUDIT C Alcohol Use Questionnaire (AUDIT-C) 1. How often do you have a drink containing alcohol?: Never 3. How often do you have six or more drinks on one occasion?: Never Total Score: 0 Score Reviewed/Action Taken: No PATEL-7 AMB Questionnaire PATEL-7 Date PATEL - 7 assessed: 08/29/23 Source: Developed by Drs. Shmuel Blakcman, Dian Westfall, Jones Palacio and colleagues, with an educational silvino from [employer]. Review of Systems Const Denies chills, Denies headache(s) and Denies weight loss ENT Denies headache(s) Card Denies chest pain, Denies syncope, Denies irregular heart rhythm and Denies dyspnea Resp Denies chest congestion, Denies cough and Denies dyspnea GI Denies abdominal pain, Denies change in stool character, Denies nausea and Denies vomiting Musc Denies deformity and Denies joint swelling Neuro Denies syncope and Denies headache(s) Physical exam (Primary Care) Vital Signs: Last Vital Signs Pulse 82 03/09/24 09:24 BP 122/74 03/09/24 09:24 Pulse Ox 94 03/09/24 09:24 Oxygen Delivery Method Room Air 03/09/24 09:24 BMI result Body Mass Index 26.7 Tobacco/Smoking Status: Tobacco use Status Tobacco use date assessed 08/29/23 03/09/24 09:29 Patient Tobacco Use Status Never used Tobacco 03/09/24 09:29 Tobacco use type Cigarette 03/09/24 09:29 e-Cigarette/Vaping Use Never Used 03/09/24 09:29 PHQ-9: PHQ-9 Score PHQ-9: Total score 0 03/09/24 09:29 Depression Screening Interpretation: Negative Thrive Assessment: Date of Thrive Assessment Date Thrive assessed 08/29/23 03/09/24 09:29 Const General: cooperative, comfortable, no acute distress and alert Neck Neck: Yes no lymphadenopathy Thyroid: Thyroid normal Resp Effort & Inspection: normal respiratory effort Auscultation: clear to auscultation bilaterally Percussion: percussion normal Cardio Jugular venous distension: no JVD Palpation: normal PMI Rate: regular rate Rhythm: regular rhythm Heart sounds: S1 normal heart sound present and S2 normal heart sound present GI Inspection: Yes normal to inspection Palpation (GI): No hepatosplenomegaly present Skin General skin exam: no rashes or lesions noted Extrem General: Yes no clubbing, cyanosis or edema Assessment and Plan Assessment & Plan (1) Hypertension: Code(s): I10 - Essential (primary) hypertension Plan: stable; same rx Medications: New azithromycin take 500 mg today (day 1), then 250 mg for 4 days (days 2-5) PO 6 tabs 0RF Refilled lorazepam 1 mg PO BID PRN 60 tabs 5RF anxiety Coding Level of Care Code Est Pt Level 3 (22919) Diagnoses Hypertension I10
== END 2024-03-09 09:45 | disposition home or self-care (01) ==
PROVIDERS: PCP Internal Medicine; Visit Provider Internal Medicine
DX: I10 Essential (primary) hypertension (principal)
CPT/HCPCS: 99213

== ENCOUNTER 2024-03-25 09:17 | Outpatient (AMB) | payer MEDICARE, SELFPAY ==
--- NOTE | 2024-03-25 09:41 | MHC.OFFVIS ---
Intake Visit Reasons: Cysto Intake Note: Patient is present for Cystoscopy Urology Medication:TERAZOSIN Antibiotic Allergy:PENICILLIN Blood Thinner:NONE Lot:[id number] Exp:05/17/27 Rock Crusher Required: No Allergies Penicillins [PENICILLINS] Allergy (Unknown, Verified 03/25/24 09:42) HIVES Medication List - Last Reconciled 03/25/24 by Andrew Eller MD acetaminophen (Tylenol Extra Strength) 500 mg PO Q6H PRN azithromycin take 500 mg today (day 1), then 250 mg for 4 days (days 2-5) PO bimatoprost 0.01% 1 drp ophthalmic (eye) DAILY CPAP (CPAP Machine/Device) Pressure 8 dutasteride (Avodart) 0.5 mg PO DAILY ezetimibe 10 mg PO DAILY hydrochlorothiazide 25 mg PO DAILY lisinopril 2.5 mg PO DAILY lorazepam 1 mg PO BID PRN niacin 500 mg PO BID terazosin 10 mg (2 x 5 mg) PO BEDTIME 90 days HPI Comments Details: 03/25/2024--here for office cystoscopy. Cystoscopy findings: prostatic urethra enlarged, trilobar enlargement, bulbous urethra Moderate with cellule changes, and small diverticuli, no suspicious bladder lesions visualized. Will start Avodart, if covered by insurance or Proscar. Continue terazosin. Discussed that he would likely benefit from resection of the prostate tissue or laser, Monitor PVRs. Follow-up in 3 months with nurse practitioner. Review of chart: 02/09/24--Sage Ivory is a pleasant 68 year old male patient of Dr. George. He has a past medical history of hypertension, spondylosis of lumbar region without myelopathy or radiculopathy. He presents to the office today for follow-up. Of note, patient was seen approximately 2 months ago as a new patient for urinary frequency at which time a retroperitoneal ultrasound was ordered for further assessment evaluation and the patients Flomax was discontinued and terazosin 5 mg daily was initiated. Recent retroperitoneal ultrasound results reviewed with the patient today. Bilateral kidneys with no lesions, calculi, and or hydronephrosis noted. Bilateral renal cysts noted that require no additional imaging or follow-up per radiology report. The bladder is well distended and normal. Pre void bladder volume is approximately 550 mL. Postvoid bladder volume is approximately 350 mL. There is a cystic structure inferior to the bladder measuring 2.4 cm which corresponds with CT findings of bladder diverticulum. The prostate mildly enlarged measuring approximately 58 mL. He reports feeling urinary frequency has somewhat improved with 5 mg of terazosin daily. In office urinalysis results reviewed with the patient today. Persistent microscopic hematuria noted. Discussed previous urine cytology results with the patient today 12/04 Atypical urothelial cells. PVR today 228mls which is improved since last office visit which was 373 mL. When asked he denies any previous smoking history and or workplace chemical exposure. Discussed given retroperitoneal ultrasound of possible cystic structure and abnormal cytology further assessment evaluation with in office cystoscopy. Discussed at length incomplete bladder emptying. He otherwise denies incontinence, hematuria, dysuria, foul smelling urine, changes to urinary stream, flank pain, fever, and or chills. In review of patient's chart it appears PSAs are as follows: PSA: 05/31 2.2, 06/01 2.6, 11/04 3.5 PFSH Medical History Encounter for screening Right shoulder pain Hypertension Spondylosis of lumbar region without myelopathy or radiculopathy Surgical History History of parathyroidectomy Family History Father Diabetes Heart failure Mother Respiratory failure Social History Housing: House Alcohol intake: never Patient Tobacco Use Status: Never used Tobacco Tobacco use type: Cigarette e-Cigarette/Vaping Use: Never Used Second Hand Smoke Exposure: No service: No Current occupational status: retired Cognitive needs: No Hearing needs: No Vision needs: Yes Review of Systems Const All systems reviewed & are unremarkable except as noted in HPI and below Reports no additional complaints Eyes Reports no additional complaints ENT Reports no additional complaints Card Reports no additional complaints Resp Reports no additional complaints GI Reports no additional complaints Reports as per HPI Musc Reports no additional complaints Skin/Breast Reports system reviewed and no additional complaints, except as documented Neuro Reports no additional complaints Psych Reports no additional complaints Endo Reports no additional complaints Reynold/Lymph Reports no additional complaints Aller/Immun Reports no additional complaints Office Procedures Cystoscopy Consent Discussed risk and benefit or proposed procedure with the patient. Information consent for procedure given to the patient. Discussed technical aspects, risks, benefits and alternatives in full. Addressed all of the patient's questions and concerns regarding the procedure. The patient demonstrated knowledge and understanding. They wish to proceed with this procedure. Preparation The patient was prepped in the usual manner. A senior occupational therapist was present and in the room. Genitalia was prepped with betadine solution in a sterile manner. Lidocaine Jelly 2% was placed into the urethra and 16Fr flexible Olympus cystoscope was inserted into the meatus after adequate lubrication. Procedure Time out per protocol performed. Bladder Inspection Bladder Inspection: The bladder was inspected in its entirety with utilization retroflexion displaying: Tumor(s): no suspicious bladder lesions visualized Trabeculation: Moderate with cellule changes, and small diverticuli Mucosal Erthema: NA Orifices: normal shape and position Urethra: normal Cystoscopy findings: prostatic urethra enlarged, trilobar enlargement, bulbous urethra Moderate with cellule changes, and small diverticuli, no suspicious bladder lesions visualized [id number] DISPOSABLE SCOPE URO-G FLEXIBLE SCOPE Procedure code (CPT) selection complete Office Meds lidocaine HCl 2 % mucosal jelly in applicator Performing Provider: Andrew Eller MD Performing Location: [facility] [place] [facility] Administered by: Dalton Delgadillo RN on 03/25/24 10:09 Dose Route Admin Location Dispensed Lot Number Expiration Date NDC [employer] 10 mL intra-urethral 10 mL naproxen 500 mg tablet Performing Provider: Andrew Eller MD Performing Location: [facility] [place] [facility] Administered by: Dalton Delgadillo RN on 03/25/24 10:09 Dose Route Admin Location Dispensed Lot Number Expiration Date NDC [employer] 500 mg PO 1 tab ciprofloxacin HCl 500 mg tablet Performing Provider: Andrew Eller MD Performing Location: [facility] [place] [facility] Administered by: Dalton Delgadillo RN on 03/25/24 10:09 Dose Route Admin Location Dispensed Lot Number Expiration Date NDC [employer] 500 mg PO 1 tab Results AMB Urinalysis, Automated UA Leukoctes 0 Bird/uL Last Edit by DICKSON Machado on 03/25/24 10:00 UA Nitrite Negative Last Edit by DICKSON Machado on 03/25/24 10:00 UA Urobilinogen 0.2 mg/dL Last Edit by DICKSON Machado on 03/25/24 10:00 UA Protein 0 mg/dL Last Edit by Davin Sanders CCM on 03/25/24 10:00 UA pH 6.0 Last Edit by Davin Sanders [facility] on 03/25/24 10:00 UA Blood 10 Isai/uL Last Edit by Davin Sanders, [facility] on 03/25/24 10:00 UA Specific [place] 1.015 Last Edit by Davin Sanders [facility]CM on 03/25/24 10:00 UA Ketone Negative Last Edit by DICKSON Machado on 03/25/24 10:00 UA Bilirubin 0 mg/dL Last Edit by Davin Sanders [facility] on 03/25/24 10:00 UA Glucose 0 mg/dL Last Edit by Davin Sanders [facility] on 03/25/24 10:00 Results Reviewed Results Reviewed: Laboratory Last Values Urine pH (Auto) 6.0 03/25/24 09:59 Specific [place] (Auto) 1.015 03/25/24 09:59 Urine Protein (Auto) 0 mg/dL 03/25/24 09:59 Glucose (UA)(Auto) 0 mg/dL 03/25/24 09:59 Urine Ketones (Auto) Negative 03/25/24 09:59 Urine Blood (Auto) 10 Isai/uL 03/25/24 09:59 Urine Nitrite (Auto) Negative 03/25/24 09:59 Urine Bilirubin (Auto) 0 mg/dL 03/25/24 09:59 Urine Urobilinogen (Auto) 0.2 mg/dL 03/25/24 09:59 Leukocyte Esterase (Auto) 0 Bird/uL 03/25/24 09:59 Urine Cytology--Collected: 02/09/24 Location: [facility] Received: 02/10/24 Diagnosis Urine: Negative for high-grade urothelial carcinoma. COMMENT: Examination of a monolayer preparation slide shows scattered benign urothelial cells with reactive changes, scattered benign squamous cells, few degenerated and reactive epithelioid cells (? tubular), and scattered red blood cells and inflammatory cells. Clinical History Frequency of micturition Material Received Urine Gross Description Received is 50 cc of clear yellow fluid from which a ThinPrep slide is prepared. Date of Service: 02/02/24 EXAMINATION: US RETROPERITONEAL COMPLETE (RENAL) FINDINGS: RIGHT KIDNEY: 10.2 x 5.3 x 5.7 cm (SAG x AP x TRV). The kidney is normal in size, contour, and echogenicity. Renal cortical thickness is normal. No calculi or focal parenchymal lesions. No hydronephrosis. Multiple benign Bosniak class I renal cysts are noted, the largest measuring 3.6 cm which require no additional imaging or follow-up. No solid renal masses are seen. LEFT KIDNEY: 14.5 x 5.7 x 4.7 cm (SAG x AP x TRV). The kidney is normal in size, contour, and echogenicity. Renal cortical thickness is normal. No calculi or focal parenchymal lesions. No hydronephrosis. Multiple benign Bosniak class I and Bosniak class II renal cysts are noted, the largest is Bosniak class II with a septation measuring 4.8 cm. These require no additional imaging or follow-up. No solid renal masses are seen. BLADDER: Well distended and normal. Bilateral ureteral jets are not demonstrated. Prevoid bladder volume is 553 mL. Postvoid bladder volume is 353 mL. There is a cystic structure inferior to the bladder measuring 2.4 cm which corresponds to the CT finding of a bladder diverticulum seen just above the ureter insertion on the right (3:72). PROSTATE: The prostate is mildly enlarged at 58 mL. IMPRESSION: 1. Mildly enlarged prostate with large post void residual. 2. Bladder diverticulum. 3. Bilateral benign Bosniak class I and Bosniak class II renal cysts, which require no additional imaging or follow-up. Assessment & Plan Assessment & Plan (1) Urinary frequency: Code(s): R35.0 - Frequency of micturition Category: Medical (2) Incomplete bladder emptying: Code(s): R33.9 - Retention of urine, unspecified Category: Medical (3) Enlarged prostate: Code(s): N40.0 - Benign prostatic hyperplasia without lower urinary tract symptoms Category: Medical Plan Will start Avodart, if covered by insurance or Proscar. Continue terazosin. Discussed that he would likely benefit from resection of the prostate tissue or laser, Monitor PVRs. Follow-up in 3 months with nurse practitioner. Orders: Orders AMB Urinalysis Automated Today Z13.9 - Encounter for screening, unspecified AMB Cystoscopy Today N40.0 - Benign prostatic hyperplasia without lower urinary tract symptoms, R33.9 - Retention of urine, unspecified, R35.0 - Frequency of micturition, R89.6 - Abnormal cytological findings in specimens from other organs, systems and tissues Medications: New dutasteride (Avodart) 0.5 mg PO DAILY 90 caps 3RF for enlarged prostate Refilled terazosin 10 mg (2 x 5 mg) PO BEDTIME 90 days 180 caps 1RF N40.1 - Benign prostatic hyperplasia with lower urinary tract symptoms, R35.0 - Frequency of micturition Patient Instructions: The patient had an opportunity to ask questions regarding treatment plan. The patient expressed understanding and agreement with the above treatment plan. The patient is aware they should contact our office by phone for worsening of their current condition or the appearance of new symptoms. Compliance is encouraged with any medications and followup testing that is ordered. It is a privilege to be allowed the opportunity to participate in the urologic care of your patient. If you have any questions or concerns regarding treatment for the above conditions please do not hesitate to contact me. The office telephone contact is [phone]. This note is constructed in part using voice recognition software. While every effort has been made to ensure accuracy hand brim ironer errors may have been included. Yours sincerely, Andrew Eller MD Coding Level of Care Code Est Pt Level 4 (12488) Diagnoses Urinary frequency R35.0 Incomplete bladder emptying R33.9 Enlarged prostate N40.0 CPT Codes Cystoscopy - CPT: 01339-Lcblccalnv ([id number])
== END 2024-03-25 10:32 | disposition home or self-care (01) ==
PROVIDERS: PCP Internal Medicine; Visit Provider Urology
DX: R89.6 Abnormal cytological findings in specimens from other organs, systems and tissues (principal); R35.0 Frequency of micturition; R33.9 Retention of urine, unspecified; N40.0 Benign prostatic hyperplasia without lower urinary tract symptoms; Z13.9 Encounter for screening, unspecified
CPT/HCPCS: 52000; 99214

== ENCOUNTER → 2024-03-25 09:17 | Outpatient (BNVA) | payer MEDICARE, SELFPAY | PROVIDERS: PCP Internal Medicine; Visit Provider Urology | DX: N40.1 Benign prostatic hyperplasia with lower urinary tract symptoms (principal); R35.0 Frequency of micturition; R33.8 Other retention of urine; Z79.899 Other long term (current) drug therapy | CPT/HCPCS: 52000; 81003; 99212 ==

== ENCOUNTER 2024-06-14 09:19 | Outpatient (REF) | payer MEDICARE, SELFPAY | END 2024-06-14 09:20 | disposition home or self-care (01) | LOC: HO.CT 09:19 | PROVIDERS: PCP Internal Medicine; Visit Provider Internal Medicine Pulmonary Disease | DX: R91.8 Other nonspecific abnormal finding of lung field (principal) | CPT/HCPCS: 71250 ==

== ENCOUNTER → 2024-06-14 09:21 | Outpatient (BNV) | payer MEDICARE, SELFPAY | PROVIDERS: PCP Internal Medicine; Visit Provider Radiology Diagnostic Radiology | DX: R91.8 Other nonspecific abnormal finding of lung field (principal) | CPT/HCPCS: 71250 ==

== ENCOUNTER 2024-06-24 08:13 | Outpatient (REF) | payer MEDICARE, SELFPAY ==
[2024-06-24 16:59] LABS: Urine Cytology See Pathology rpt
== END 2024-06-24 08:14 | disposition home or self-care (01) ==
LOC: HO.LNP 08:13
PROVIDERS: PCP Internal Medicine; Visit Provider Nurse Practitioner Family
DX: R89.6 Abnormal cytological findings in specimens from other organs, systems and tissues (principal); N40.0 Benign prostatic hyperplasia without lower urinary tract symptoms; R33.9 Retention of urine, unspecified
CPT/HCPCS: 51798; 81003; 88112; 99212

== ENCOUNTER 2024-06-24 08:13 | Outpatient (AMB) | payer MEDICARE, SELFPAY ==
--- NOTE | 2024-06-24 08:36 | A.OFFVIS_ITS ---
Intake Visit Reasons: 3m/PVR Intake Note: Patient presents today for follow up on: Urinary Frequency, Incomplete Bladder Emptying Urology Medications: Terazosin Blood Thinner: none PVR: 61ml's Blood Coordinator Required: No Accompanied by: Self / Same As Patient Allergies Penicillins [PENICILLINS] Allergy (Unknown, Verified 06/24/24 09:00) HIVES Medication List - Last Reconciled 06/24/24 by CLAIRE Mohr acetaminophen (Tylenol Extra Strength) 500 mg PO Q6H PRN bimatoprost 0.01% 1 drp ophthalmic (eye) DAILY CPAP (CPAP Machine/Device) Pressure 8 dutasteride (Avodart) 0.5 mg PO DAILY ezetimibe 10 mg PO DAILY hydrochlorothiazide 25 mg PO DAILY lisinopril 2.5 mg PO DAILY lorazepam 1 mg PO BID PRN niacin 500 mg PO BID terazosin 10 mg (2 x 5 mg) PO BEDTIME 30 days HPI Comments Details: Sage Ivory is a pleasant 68 year old male patient of Dr. George. He has a past medical history of hypertension, spondylosis of lumbar region without myelopathy or radiculopathy. He presents to the office today for follow- up of his lower urinary tract symptoms. In discussion with the patient today reports to be doing and feeling well. Of note, during last office visit approximately 3 months ago patient underwent an office cystoscopy with Dr. Tacho Gracia that noted prostatic urethra enlarged, trilobar enlargement, bulbous urethra Moderate with cellule changes, and small diverticuli, no suspicious bladder lesions visualized. He was started on Avodart in discussion regarding benefit from resection of the prostate tissue or laser was discussed. When asked he reports noting improvement in lower urinary tract symptoms of urinary frequency and nocturia. Previous workup has included a retroperitoneal ultrasound 02/03 noting bilateral kidneys with no lesions, calculi, and or hydronephrosis noted. Bilateral renal cysts noted that require no additional imaging or follow-up per radiology report. The bladder is well distended and normal. Pre void bladder volume is approximately 550 mL. Postvoid bladder volume is approximately 350 mL. There is a cystic structure inferior to the bladder measuring 2.4 cm which corresponds with CT findings of bladder diverticulum. The prostate mildly enlarged measuring approximately 58 mL. In office urinalysis results reviewed with the patient today. Persistent microscopic hematuria noted. Discussed previous urine cytology results with the patient today 12/04 Atypical urothelial cells. PVR today 68mls which is significantly improving. When asked he denies any previous smoking history and or workplace chemical exposure. He otherwise denies incontinence, hematuria, dysuria, foul smelling urine, changes to urinary stream, flank pain, fever, and or chills. In review of patient's chart it appears PSAs are as follows: PSA: 05/31 2.2, 06/01 2.6, 11/04 3.5 PFSH Medical History Encounter for screening Right shoulder pain Hypertension Spondylosis of lumbar region without myelopathy or radiculopathy Surgical History History of parathyroidectomy Family History Father Diabetes Heart failure Mother Respiratory failure Social History Housing: House Alcohol intake: never Patient Tobacco Use Status: Never used Tobacco Tobacco use type: Cigarette e-Cigarette/Vaping Use: Never Used Second Hand Smoke Exposure: No service: No Current occupational status: retired Cognitive needs: No Hearing needs: No Vision needs: Yes Review of Systems Const Reports no additional complaints Eyes Reports no additional complaints ENT Reports no additional complaints Card Reports as per HPI Resp Reports no additional complaints GI Reports no additional complaints Reports as per HPI Musc Reports as per HPI Neuro Reports no additional complaints Psych Reports no additional complaints Endo Reports no additional complaints Reynold/Lymph Reports no additional complaints Aller/Immun Reports no additional complaints Physical Exam Const General: cooperative, healthy appearing, comfortable, no acute distress, well developed, alert and awake Orientation/consciousness: patient oriented x3 Limitations: no limitations HEENT Head: Yes normal to inspection, Yes normocephalic and Yes atraumatic Ears: hearing grossly normal bilaterally Eyes General: appearance normal, both eyes and all related structures Neck Neck: Yes normal visual inspection and Yes trachea midline Chest Chest palpation & inspection: normal inspection of the chest Resp Effort & Inspection: normal respiratory effort and able to speak in complete sentences Cardio Rate: regular rate GI Inspection: Yes normal to inspection General: Yes no CVA tenderness Back/Spine/Pelvis Back: no CVA tenderness Skin General skin exam: no rashes or lesions noted Neuro General: patient oriented x3 Extrem General: Yes normal to inspection Psych Appearance: grossly normal and well kempt Mental Status: mental status grossly normal Speech and movement: Normal speech and movement present and Clear speech present Affect: normal affect Attitude: cooperative Thought process: Normal thought process present Thought content: Normal thought content present Insight: Fair insight present (Psych) Judgement: Fair judgement present (Psych) Office Procedures Post Void Residual Post Residual Void Post Void Residual (PVR): 61 [id number] Void Residual by ultrasound Results AMB Urinalysis, Automated UA Leukoctes 0 Bird/uL Last Edit by [facility] on 06/24/24 08:52 UA Nitrite Last Edit by [facility] on 06/24/24 08:52 UA Urobilinogen 0.2 mg/dL Last Edit by [facility] on 06/24/24 08:52 UA Protein 0 mg/dL Last Edit by [facility] on 06/24/24 08:52 UA pH 6.0 Last Edit by [facility] on 06/24/24 08:52 UA Blood 25 Isai/uL Last Edit by [facility] on 06/24/24 08:52 UA Specific [place] 1.020 Last Edit by [facility] on 06/24/24 08:52 UA Ketone Last Edit by [facility] on 06/24/24 08:52 UA Bilirubin 0 mg/dL Last Edit by [facility] on 06/24/24 08:52 UA Glucose 0 mg/dL Last Edit by [facility] on 06/24/24 08:52 Results Reviewed Results Reviewed: Laboratory Last Values Urine pH (Auto) 6.0 06/24/24 08:40 Specific [place] (Auto) 1.020 06/24/24 08:40 Urine Protein (Auto) 0 mg/dL 12/12/24 08:40 Glucose (UA)(Auto) 0 mg/dL 06/24/24 08:40 Urine Blood (Auto) 25 Isai/uL 06/24/24 08:40 Urine Bilirubin (Auto) 0 mg/dL 06/24/24 08:40 Urine Urobilinogen (Auto) 0.2 mg/dL 06/24/24 08:40 Leukocyte Esterase (Auto) 0 Bird/uL 06/24/24 08:40 Assessment & Plan Assessment & Plan (1) Enlarged prostate: Code(s): N40.0 - Benign prostatic hyperplasia without lower urinary tract symptoms Category: Medical Plan In office urinalysis results reviewed with the patient today; as noted above; will send for urine cytology PVR 68 mL. We discussed significant decrease in PVR since last office visit. Patient reports improvement in lower urinary tract symptoms he had been experiencing; will continue with dutasteride and terazosin as prescribed. He currently denies any bothersome urinary issues. We discussed further treatment options and risks and benefits of these treatment options. He would like to continue with med management at this time. Will obtain PSA in 6 months. Follow-up in 6 months with lab and PVR; or sooner with any issues, concerns, and or questions. Orders: Orders AMB Urinalysis Automated Today Z13.9 - Encounter for screening, unspecified Prostate Specific Antigen 6 Months N40.0 - Benign prostatic hyperplasia without lower urinary tract symptoms AMB Post Void Residual by ultrasound Today R33.9 - Retention of urine, unspecified Patient Instructions: The patient had an opportunity to ask questions regarding the treatment plan. All questions were answered. Physical exam, labs, and imaging were discussed and reviewed in detail. As well as risks, benefits, and discussion of treatment choices. No major barriers to understanding were identified. The patient expressed understanding and agreement with the above treatment plan. The patient was made aware they should contact our office by phone for worsening of their current condition, the appearance of new symptoms, or with any questions or concerns. Compliance is encouraged with any medications and follow up testing that is ordered. It is a privilege to be allowed the opportunity to participate in? your urological care.? Again, if you have any questions or concerns If you have any questions or concerns please do not hesitate to contact me. The office is [phone]. This note is constructed using voice recognition software. While every effort has been made to ensure accuracy slab installer errors may have been included. Yours sincerely, HIEU MohrP-BC Coding Level of Care Code Est Pt Level 3 (26542) Complex EM visit Add On G2211 Diagnoses Enlarged prostate N40.0 CPT Codes Post Residual Void - PVR CPT Code: 48975-Gnlp Void Residual by ultrasound ([id number])
== END 2024-06-24 09:07 | disposition home or self-care (01) ==
PROVIDERS: PCP Internal Medicine; Visit Provider Nurse Practitioner Family
DX: N40.0 Benign prostatic hyperplasia without lower urinary tract symptoms (principal); Z13.9 Encounter for screening, unspecified
CPT/HCPCS: 99213; G2211

== ENCOUNTER 2024-07-02 08:58 | Outpatient (AMB) | payer MEDICARE, SELFPAY ==
[2024-07-02 09:00] VITALS: BP 126/82; PULSE 86; O2SAT 96; BMI 25.9
--- NOTE | 2024-07-02 09:00 | MHC.OFFVIS ---
Vital Signs 07/02/24 09:00 Height 6 ft 2 in Weight 202 lb BMI 25.9 BP 126/82 Blood Pressure Location Rt brachial Position Sitting Pulse 86 Pulse Source Doppler Pulse Oximetry (%) 96 Oxygen Delivery Method Room Air Intake Visit Reasons: CT Follow Up Allergies Penicillins [PENICILLINS] Allergy (Unknown, Verified 06/24/24 09:00) HIVES HPI HPI CT Follow Up: Details: 68-year-old gentleman, minimal smoker in his late teens/early 20s, now followed for incidentally noted pulmonary nodules. Patient had his six-month follow-up CT scan. Today he does complain of intermittent nonproductive cough. [facility] Medical History Encounter for screening Right shoulder pain Hypertension Spondylosis of lumbar region without myelopathy or radiculopathy Surgical History History of parathyroidectomy Family History Father Diabetes Heart failure Mother Respiratory failure Social History Housing: House Alcohol intake: never Patient Tobacco Use Status: Never used Tobacco Tobacco use type: Cigarette e-Cigarette/Vaping Use: Never Used Second Hand Smoke Exposure: No service: No Current occupational status: retired Cognitive needs: No Hearing needs: No Vision needs: Yes Review of Systems Const Denies daytime sleepiness, Denies excessive sweating, Denies fatigue, Denies fever(s), Denies lethargy, Denies malaise, Denies night sweats, Denies snoring and Denies weight loss Eyes Denies blurry vision and Denies itchy eyes ENT Denies nasal congestion, Denies post nasal drip, Denies sinus pain, Denies sinus pressure and Denies other ( Thrush) Card Denies chest pain, Denies pedal edema, Denies dyspnea, Denies orthopnea and Denies paroxysmal nocturnal dyspnea Resp Reports cough, Denies hemoptysis, Denies excessive phlegm production, Denies dyspnea, Denies snoring and Denies wheezing GI Denies abdominal pain and Denies heartburn Musc Denies myalgias, Denies arthralgias and Denies joint swelling Skin/Breast Denies rash Neuro Denies memory loss and Denies seizure-like activity Psych Denies abnormal sleep pattern, Denies anxiety and Denies memory loss Endo Denies excessive sweating, Denies fatigue and Denies heat intolerance Reynold/Lymph Denies easy bruising Aller/Immun Denies itchy eyes, Denies seasonal rhinorrhea and Denies wheezing Physical Exam Vital Signs: Last Vital Signs Pulse 86 07/02/24 09:00 BP 126/82 07/02/24 09:00 Pulse Ox 96 07/02/24 09:00 Oxygen Delivery Method Room Air 07/02/24 09:00 BMI result Body Mass Index 25.9 Const General: no acute distress and alert Nutritional Appearance: not obese Orientation/consciousness: Other orientation findings ( oriented) HEENT Head: Yes atraumatic Eyes General: appearance normal, both eyes and all related structures Sclerae: sclerae normal EOM: EOMs intact bilaterally Neck Neck: Yes supple Lymphatic: no lymphadenopathy noted Resp Effort & Inspection: normal respiratory effort and no use of accessory muscles Auscultation: clear to auscultation bilaterally Cardio Rate: regular rate Rhythm: regular rhythm Heart sounds: no gallops, no murmurs and no rubs Skin General skin exam: other ( warm) Extrem General: No clubbing, No cyanosis and No edema Assessment & Plan Assessment & Plan (1) Pulmonary nodules: Code(s): R91.8 - Other nonspecific abnormal finding of lung field Category: Medical Plan: Results of six-month follow-up CT chest not available for this visit, but on my review no significant changes from prior. Will repeat CT chest in 12 months. (2) Chronic cough: Code(s): R05.3 - Chronic cough Category: Medical Plan: May be secondary to allergic rhinitis, will try empiric albuterol MDI. Orders: Orders CT chest wo IV con 07/02/25 R91.8 - Other nonspecific abnormal finding of lung field Medications: New albuterol sulfate 90 mcg/actuation 2 puffs inhalation 6XD PRN 1 ea 3RF shortness of breath or wheezing Coding Level of Care Code Est Pt Level 4 (65601) Diagnoses Pulmonary nodules R91.8 Chronic cough R05.3
== END 2024-07-02 09:14 | disposition home or self-care (01) ==
PROVIDERS: PCP Internal Medicine; Visit Provider Internal Medicine Pulmonary Disease
DX: R91.8 Other nonspecific abnormal finding of lung field (principal); R05.3 Chronic cough
CPT/HCPCS: 99214

== ENCOUNTER → 2024-07-02 08:58 | Outpatient (BNVA) | payer MEDICARE, SELFPAY | PROVIDERS: PCP Internal Medicine; Visit Provider Internal Medicine Pulmonary Disease | DX: R91.8 Other nonspecific abnormal finding of lung field (principal); R05.3 Chronic cough | CPT/HCPCS: 99212 ==

== ENCOUNTER 2024-09-09 09:30 | Outpatient (AMB) | payer MEDICARE, SELFPAY ==
--- NOTE | 2024-09-09 09:39 | MHC.PC.OV ---
Vital Signs 09/09/24 09:41 Height 6 ft 2 in Weight 205 lb 8 oz BMI 26.4 BP 110/60 Blood Pressure Location Lt brachial Position Sitting Pulse 86 Pulse Source Pulse Oximeter Temp 97.3 F Temp Source Temporal Artery Scan Pulse Oximetry (%) 98 Oxygen Delivery Method Room Air Intake Visit Reasons: 6 Mo F/U Dope Heater Required: No Health Information Administrator: Not Required per policy Accompanied by: Self / Same As Patient Allergies Penicillins [PENICILLINS] Allergy (Unknown, Verified 09/09/24 09:40) HIVES Medication List - Last Reconciled 09/10/24 by Familia George MD acetaminophen (Tylenol Extra Strength) 500 mg PO Q6H PRN albuterol sulfate 90 mcg/actuation 2 puffs inhalation 6XD PRN bimatoprost 0.01% 1 drp ophthalmic (eye) DAILY CPAP (CPAP Machine/Device) Pressure 8 dutasteride (Avodart) 0.5 mg PO DAILY ezetimibe 10 mg PO DAILY hydrochlorothiazide 25 mg PO DAILY lisinopril 2.5 mg PO DAILY lorazepam 1 mg PO BID PRN niacin 500 mg PO BID terazosin 10 mg (2 x 5 mg) PO BEDTIME 30 days Tobacco use date assessed: 09/09/24 Fall risk assessment: No Falls in past year Last assessed Fall Risk: 09/09/24 Dental Screening Dental Screen Date: 09/09/24 Did you have a dental visit in the last 12 months?: Yes Did you have a dental problem in the last 6 months where you did not have access to dental care?: No Was dental information given to patient?: Patient has dentist HPI 6 Mo F/U HPI Details HTN on Rx; LORENE on CPAP PFSH Medical History (Updated 07/02/24 @ 10:08 by Vickie Waite PA-C) Hypertension Chronic cough Pulmonary nodules Obstructive sleep apnea Right shoulder pain Spondylosis of lumbar region without myelopathy or radiculopathy Tubular adenoma of colon Surgical History History of colonoscopy History of radiofrequency ablation (RFA) of nerve of lumbar spine History of parathyroidectomy Family History Father Diabetes Heart failure Mother Respiratory failure Social History Housing: House Alcohol intake: never Patient Tobacco Use Status: Never used Tobacco Tobacco use type: Cigarette e-Cigarette/Vaping Use: Never Used Second Hand Smoke Exposure: No service: No Current occupational status: retired Cognitive needs: No Hearing needs: No Vision needs: Yes Questionnaire PHQ-9 Over the last 2 weeks, how often have you been bothered by any of the following problems? 1. Little interest or pleasure in doing things: not at all 2. Feeling down, depressed, or hopeless: not at all 3. Trouble falling or staying asleep, or sleeping too much: not at all 4. Feeling tired or having little energy: not at all 5. Poor appetite or overeating: not at all 6. Feeling bad about yourself - or that you are a failure or have let yourself or your family down: not at all 7. Trouble concentrating on things, such as reading the newspaper or watching television: not at all 8. Moving or speaking so slowly that other people could have noticed. Or the opposite - being so fidgety or restless that you have been moving around a lot more than usual: not at all 9. Thoughts that you would be better off or of hurting yourself in some way: not at all Total score: 0 Depression Screening Interpretation: Negative Depression Screening Done: Yes Source: Developed by Drs. Shmuel Blackman, Dian Westfall, Jones Palacio and colleagues, with an educational silvino from [employer] Thrive Questionnaire Date Thrive assessed: 09/09/24 I am a: Patient What is your living situation today?: I have a steady place to live Within the past 12 months, did the food you bought not last and you didn't have the money to get more?: Never true Within the past 12 months, did you worry whether your food would run out before you got money to buy more?: Never true Do you have trouble paying for medicines?: No Do you have trouble getting transportation to medical appointments?: No Do you have trouble paying your heating and electricity bill?: No Do you have trouble taking care of your child, family member or friend?: No Do you have trouble with day-to-day activities such as bathing, preparing meals, shopping, managing finances, etc.?: No Are you currently unemployed and looking for a job?: No Are you interested in more education?: No Please select the resources that you would like help with: None Currently or been in a relationship where the following occur: No concerns reported THRIVE Score: 0 AUDIT C Alcohol Use Questionnaire (AUDIT-C) 1. How often do you have a drink containing alcohol?: Never 3. How often do you have six or more drinks on one occasion?: Never Total Score: 0 PATEL-7 AMB Questionnaire PATEL-7 Date PATEL - 7 assessed: 09/09/24 Feeling nervous, anxious, or on edge: 1 = Several days Not being able to stop or control worryin = Several days Worrying too much about different things: 1 = Several days Trouble relaxin = More than half the days Being so restless that it is hard to sit still: 0 = Not at all Becoming easily annoyed or irritable: 0 = Not at all Feeling afraid as if something awful might happen: 0 = Not at all Total PATEL-7 score (0-4 normal; 5-9 mild; 10-14 moderate; 15-21 severe): 5 Source: Developed by Drs. Shmuel Blackman, Dian Westfall, Jones Palacio and colleagues, with an educational silvino from [employer] Review of Systems Const Denies chills, Denies headache(s) and Denies weight loss ENT Denies headache(s) Card Denies chest pain, Denies syncope, Denies irregular heart rhythm and Denies dyspnea Resp Denies chest congestion, Denies cough and Denies dyspnea GI Denies abdominal pain, Denies change in stool character, Denies nausea and Denies vomiting Musc Denies deformity and Denies joint swelling Neuro Denies syncope and Denies headache(s) Physical exam (Primary Care) Vital Signs: Last Vital Signs Temp 97.3 F 09/09/24 09:41 Pulse 86 09/09/24 09:41 BP 110/60 09/09/24 09:41 Pulse Ox 98 09/09/24 09:41 Oxygen Delivery Method Room Air 09/09/24 09:41 BMI result Body Mass Index 26.4 Tobacco/Smoking Status: Tobacco use Status Tobacco use date assessed 09/09/24 09/09/24 09:45 Patient Tobacco Use Status Never used Tobacco 09/09/24 09:45 Tobacco use type Cigarette 09/09/24 09:45 e-Cigarette/Vaping Use Never Used 09/09/24 09:45 PHQ-9: PHQ-9 Score PHQ-9: Total score 0 09/09/24 09:45 Depression Screening Interpretation: Negative Thrive Assessment: Date of Thrive Assessment Date Thrive assessed 09/09/24 09/09/24 09:45 Currently or been in a relationship where the following occur: No concerns reported Const General: cooperative, comfortable, no acute distress and alert Neck Neck: Yes no lymphadenopathy Thyroid: Thyroid normal Resp Effort & Inspection: normal respiratory effort Auscultation: clear to auscultation bilaterally Percussion: percussion normal Cardio Jugular venous distension: no JVD Palpation: normal PMI Rate: regular rate Rhythm: regular rhythm Heart sounds: S1 normal heart sound present and S2 normal heart sound present GI Inspection: Yes normal to inspection Palpation (GI): No hepatosplenomegaly present Skin General skin exam: no rashes or lesions noted Extrem General: Yes no clubbing, cyanosis or edema Coding Level of Care Code Est Pt Level 3 (14117) Diagnoses Hypertension I10 Obstructive sleep apnea G47.33 Assessment & Plan Assessment & Plan (1) Hypertension: Code(s): I10 - Essential (primary) hypertension Category: Medical Plan: stable; same rx (2) Obstructive sleep apnea: Code(s): G47.33 - Obstructive sleep apnea (adult) (pediatric) Category: Medical Plan: stable; same CPAP Medications: Refilled lorazepam 1 mg PO BID PRN 60 tabs 5RF anxiety
[2024-09-09 09:41] VITALS: BP 110/60; PULSE 86; TEMP 36.3; O2SAT 98; BMI 26.4
--- OUTSIDE RECORDS SUMMARY | 2024-09-09 10:43 | XMS_ITS | Patient Health Record ---
Author Organization [facility] Address [address] [place] [id number] Care Team Providers Care Corner Bead Operator Name Role Phone Ariel JOYA, Familia Primary Care Provider Juan Daniel Linares Jr ALLERGIES Allergen (clinical drug ingredient) Drug/Non Drug Allergy documented on EMR Reaction Allergy Type Onset Date Status Penicillin Unknown Drug Allergy Active REASON FOR REFERRAL No Information MEDICATIONS Medication SIG (Take, Route, Frequency, Duration) Notes Start Date End Date Status Lumigan 0.01 % 1 drop into affected eye in the evening Ophthalmic Once a day Active Lisinopril 2.5 MG 1 tablet Orally Once a day for 30 day(s) Active Niacin 500 MG 1 tablet with food O rally Twice a day Active Zetia 10 MG 1 tablet Orally Once a day Active hydroCHLOROthiazide 25 MG 1 tablet Orally once a day Active Ibuprofen 200 MG 1 tablet with food o r milk as needed Orally Three times a day Active Flonase 50 MCG/DOSE 1 spray in each nost ril Nasally Once a day for 30 day(s) Active Flomax 0.4 MG 1 capsule Orally Onc e a day for 30 day(s) Active IMMUNIZATIONS Vaccine Route Administration Date Status Comme nts Influenza Unknown 04/13/2019 Administered SOCIAL HISTORY Sex Assigned At : Social History Observation Description Sex Assigned At Unknown PROBLEMS Problem Type ICD Code Onset Dates Problem Status W/U Status Risk SNOMED Code Notes Problem Colon cancer screening (Z12.11) Active confirmed 486209400 Problem [facility] (current) use of non-steroidal anti-inflammato altagracia (NSAID) (Z79.1) Active confirmed [id number] PLAN OF TREATMENT Next Appt Details Provider Name:Juan Daniel escalante Jr, 12/13/2024 10:00:00 AM, [address], [address], [place], [address], Insurance Providers Payer Name Payer Address Payer Phone Subscriber Number Group Number Insured Name Patient Relationship to Insured Coverage Start Date Coverage End Date [facility] [address] [place] [phone] [id number] ALLEN RODRIGUEZ Self - patient is the insured MEDICAL (GENERAL) HISTORY Medical History History ICD Code colonoscopy 10/01/13, 6 mm tubular adenom a, five-year followup recommended elevated cholesterol insomnia glaucoma hypertension CAROLE/CPAP elevated cholesterol Surgical History Surgery Date(Month/Year) parathyroidectomy
== END 2024-09-09 09:59 | disposition home or self-care (01) ==
PROVIDERS: PCP Internal Medicine; Visit Provider Internal Medicine
DX: I10 Essential (primary) hypertension (principal); G47.33 Obstructive sleep apnea (adult) (pediatric)

== ENCOUNTER → 2024-09-09 09:30 | Outpatient (BNVA) | payer MEDICARE, SELFPAY | PROVIDERS: PCP Internal Medicine; Visit Provider Internal Medicine | DX: I10 Essential (primary) hypertension (principal); G47.33 Obstructive sleep apnea (adult) (pediatric) | CPT/HCPCS: 99212 ==

== ENCOUNTER 2024-12-03 09:30 | Outpatient (REF) | payer MEDICARE, SELFPAY ==
--- OUTSIDE RECORDS SUMMARY | 2024-12-03 09:43 | XMS_ITS | Patient Health Record ---
Author Organization [facility] Address [address] [place] [id number] Care Team Providers Care Dater Assembler Name Role Phone Ariel JOYA, Familia Primary Care Provider Juan Daniel Linares Jr [phone] Allergies Allergen (clinical drug ingredient) Drug/Non Drug Allergy documented on EMR Reaction Allergy Type Onset Date Status Penicillin Unknown Drug Allergy Active Reason For Referral No Information Medications Medication SIG (Take, Route, Frequency, Duration) Notes [...] e a day for 30 day(s) Active Immunizations Vaccine Route Administration Date Status Comme nts Influenza Unknown 04/13/2019 Administered Problems Problem Type SNOMED Code ICD Code Onset Dates Problem Status W/U Status Risk Notes Problem [id number] Colon cancer screening (Z12.11) Active confirmed Problem [id number] buttermaker (current) use of non-steroidal anti-inflammato altagracia (NSAID) (Z79.1) Active confirmed Plan Of Treatment Next Appt Details Provider Name:Juan Daniel escalante Jr, 12/13/2024 10:00:00 AM, [address] [facility], [address], [place], [address], Insurance Providers Payer Name Payer Address Payer Phone Subscriber Number Group Number Insured Name Patient Relationship to Insured Coverage Start Date Coverage End Date [facility] [address] [place] [phone] [id number] ALLEN RODRIGUEZ Self - patient is the insured Medical (General) History Medical History History ICD Code colonoscopy 10/01/13, 6 mm tubular adenom a, five-year followup recommended elevated cholesterol insomnia glaucoma hypertension CAROLE/CPAP elevated cholesterol Surgical History Surgery Date(Month/Year) parathyroidectomy
[2024-12-03 10:57] LABS: Alanine Aminotransferase 14 U/L (0-40); Albumin Level 4.4 g/dL (3.5-5.0); Alkaline Phosphatase 65 U/L (39-117); Anion Gap 12 (12-20); Aspartate Amino Transferase 18 U/L (5-37); Bilirubin Total 0.3 mg/dL (0.0-1.0); Blood Urea Nitrogen 19 mg/dL (9-16); Calcium 9.3 mg/dL (8.4-10.2); Carbon Dioxide 27 mmol/L (22-29); Chloride 104 mmol/L (96-108); Cholesterol 147 mg/dL (<200); Estimated Glomerular Filt Rate > 60; Glucose Fasting 96 mg/dL (60-99); HDL Cholesterol 43 mg/dL (>40); LDL Cholesterol Calculated 81 mg/dL (<100); Potassium 3.6 mmol/L (3.3-5.1); Prostate Specific Antigen 1.82 ng/mL (<0.05-4.0); Sodium 139 mmol/L (135-145); Total Protein 7.3 g/dL (6.5-8.0); Triglycerides 115 mg/dL (<150)
== END 2024-12-03 09:31 | disposition home or self-care (01) ==
LOC: HO.LAB 09:30
PROVIDERS: PCP Internal Medicine; Visit Provider Nurse Practitioner Family
DX: I10 Essential (primary) hypertension (principal); E78.5 Hyperlipidemia, unspecified; N40.0 Benign prostatic hyperplasia without lower urinary tract symptoms; Z12.5 Encounter for screening for malignant neoplasm of prostate
CPT/HCPCS: 36415; 80053; 80061; 84153

== ENCOUNTER 2024-12-20 07:35 | Outpatient (REF) | payer MEDICARE, SELFPAY ==
[2024-12-20 16:44] LABS: Urine Cytology See Pathology rpt
== END 2024-12-20 07:36 | disposition home or self-care (01) ==
LOC: HO.LAB 07:35
PROVIDERS: PCP Internal Medicine; Visit Provider Nurse Practitioner Family
DX: R89.6 Abnormal cytological findings in specimens from other organs, systems and tissues (principal)
CPT/HCPCS: 51798; 81003; 88112; 99212

== ENCOUNTER 2024-12-20 07:35 | Outpatient (AMB) | payer MEDICARE, SELFPAY ==
--- OUTSIDE RECORDS SUMMARY | 2024-12-20 07:37 | XMS_ITS ---
Author Organization [facility] Address [address] [place] [phone] Care Team Providers Care Dropper Tank Storage Name Role Phone Priyanka Garcia Primary Care [...] Risk Notes Problem H/O: high risk medication (827099225) High risk medication use (Z79.899) Active confirmed Problem History of adenomatous polyp of colon (490334104) History of adenomatous polyp of colon (Z86.0101) Active confirmed Vital Signs Temperature 97.7 degrees Fahrenheit 12/14/19 25 Blood pressure systolic 001 mm Hg 12/14/19 25 Blood pressure diastolic 01 mm Hg 025 Height 73.5 in 12/13/2024 Weight 198.6 lbs 12/13/2024 BMI 25.84 kg/m2 12/13/2024 Encounters Encounter Location Date Provider Diagnosis [facility] [address] [facility] [place] [address] 12/13/2024 Juan Daniel Ross Jr Colon cancer [...] Up: 1 Year, Reason: Provider Name:Juan Daniel escalante Jr, 01/11/2025 11:40:00 AM, [address] [place] [address], [phone], Progress Notes * SAGE RODRIGUEZDOB: (69 yo M)Acc No.[id number]:12/13/2024 Progress Notes Patient:SAGE JUDD Provider:?Juan Daniel Ross MD :1955???Age:69 Y???Sex:Male Alex e:12/13/2024 Address:[address] [place], [place] [phone] Pcp:Priyanka Noel Subjective: * Chief Complaints: * [...] MD Date:?0 12/13/2024 Generated for Valentín rios/Eladio/eTransmitting on:?12/20/2024 07:37 AM EDT History and Physical Notes * [...]
--- NOTE | 2024-12-20 07:46 | A.OFFVIS_ITS ---
Intake Visit Reasons: 6m/ PSA/ PVR Intake Note: Patient presents today for follow up on: Urinary Frequency, Incomplete Bladder Emptying Urology Medications: Terazosin Blood Thinner: none PVR: 2ml's [place] Required: No Accompanied by: Self / Same As Patient Allergies Penicillins [PENICILLINS] Allergy (Unknown, Verified 12/20/24 07:49) BLANCA MCFADDEN Comments Details: Sage Ivory is a pleasant 69 year old male patient of Dr. George. He has a past medical history of hypertension, spondylosis of lumbar region without myelopathy or radiculopathy. He presents to the office today for follow- up of his lower urinary tract symptoms. In discussion with the patient today reports to be doing and feeling well. He denies having had any bothersome u rinary issues or concerns since his last office visit here however has been experiencing respiratory issues and has been following up with his PCP. He reports compliance with dutasteride and terazosin as prescribed. He does feel improvement in lower urinary tract symptoms that he had been experiencing of urinary urgency and frequency. Of note, patient with a history of microscopic hematuria and has underwent in office cystoscopy with Dr. Tacho Gracia 04/06/25 that noted prostatic urethra enlarged, trilobar enlargement, bulbous urethra Moderate with cellule changes, and small diverticuli, no suspicious bladder lesions visualized. He was started on Avodart in discussion regarding benefit from resection of the prostate tissue or laser was discussed. Previous workup has also included a retroperitoneal ultrasound 02/03 noting bilateral kidneys with no lesions, calculi, and or hydronephrosis noted. Bilateral renal cysts noted that require no additional imaging or follow-up per radiology report. The bladder is well distended and normal. Pre void bladder volume is approximately 550 mL. Postvoid bladder volume is approximately 350 mL. There is a cystic structure inferior to the bladder measuring 2.4 cm which corresponds with CT findings of bladder diverticulum. The prostate mildly enlarged measuring approximately 58 mL. In office urinalysis results reviewed with the patient edvin mccall. Persistent microscopic hematuria noted. Discussed previous urine cytology results with the patient today as noted and trended below. PVR today 2mls which has been improving when compared to previous postvoid residuals. When asked he denies any previous smoking history and or workplace chemical exposure. He otherwise denies incontinence, hematuria, dysuria, foul smelling urine, changes to urinary stream, flank pain, fever, and or chills. In review of patient's chart it appears PSAs are as follows: PSA: 05/31 2.2, 06/01 2.6, 11/04 3.5, 12/05 1.8 Urine cytology 12/04 Atypical urothelial cells, 02/03 Negative for high-grade urothelial carcinoma, 07/06 Atypical urothelial cells. [facility] Medical History Hypertension Chronic cough Pulmonary nodules Obstructive sleep apnea Right shoulder pain Spondylosis of lumbar region without myelopathy or radiculopathy Tubular adenoma of colon Surgical History History of colonoscopy History of radiofrequency ablation (RFA) of nerve of lumbar spine History of parathyroidectomy Family History Father Diabetes Heart failure Mother Respiratory failure Social History Housing: House Alcohol intake: never Patient Tobacco Use Status: Never used Tobacco Tobacco use type: Cigarette e-Cigarette/Vaping Use: Never Used Second Hand Smoke Exposure: No service: No Current occupational status: retired Cognitive needs: No Hearing needs: No Vision needs: Yes Review of Systems Const Reports no additional complaints Eyes Reports no additional complaints ENT Reports no additional complaints Card Reports as per HPI Resp Reports no additional complaints GI Reports no additional complaints Reports as per HPI Musc Reports as per HPI Neuro Reports no additional complaints Psych Reports no additional complaints Endo Reports no additional complaints Reynold/Lymph Reports no additional complaints Aller/Immun Reports no additional complaints Physical Exam Const General: cooperative, healthy appearing, comfortable, no acute distress, well developed, alert and awake Orientation/consciousness: patient oriented x3 Limitations: no limitations HEENT Head: Yes normal to inspection, Yes normocephalic and Yes atraumatic Ears: hearing grossly normal bilaterally Eyes General: appearance normal, both eyes and all related structures Neck Neck: Yes normal visual inspection and Yes trachea midline Chest Chest palpation & inspection: normal inspection of the chest Resp Effort & Inspection: normal respiratory effort and able to speak in complete sentences Cardio Rate: regular rate GI Inspection: Yes normal to inspection General: Yes no CVA tenderness Back/Spine/Pelvis Back: no CVA tenderness Skin General skin exam: no rashes or lesions noted Neuro General: patient oriented x3 Extrem General: Yes normal to inspection Psych Appearance: grossly normal and well kempt Mental Status: mental status grossly normal Speech and movement: Normal speech and movement present and Clear speech present Affect: normal affect Attitude: cooperative Thought process: Normal thought process present Thought content: Normal thought content present Insight: Fair insight present (Psych) Judgement: Fair judgement present (Psych) Office Procedures Post Void Residual Post Residual Void Post Void Residual (PVR): 2 [id number] Void Residual by ultrasound Results AMB Urinalysis, Automated UA Leukoctes 0 Bird/uL Last Edit by Mamie Monroy [facility] on 12/20/24 08:06 UA Nitrite Last Edit by Mamie Monroy [facility] on 12/20/24 08:06 UA Urobilinogen 0.2 mg/dL Last Edit by Mamie Monroy [facility] on 12/20/24 08:0 6 UA Protein 15 mg/dL Last Edit by Mamie Monroy [facility] on 12/20/24 08:06 UA pH 6.0 Last Edit by Mamie Monroy [facility] on 12/20/24 08:06 UA Blood 80 Isai/uL Last Edit by Mamie Monroy [facility] on 12/20/24 08:06 UA Specific [place] 1.015 Last Edit by Mamie Monroy [facility] on 12/20/24 08: 06 UA Ketone Last Edit by Mamie Monroy [facility] on 12/20/24 08:06 UA Bilirubin 0 mg/dL Last Edit by Mamie Monroy [facility] on 12/20/24 08:06 UA Glucose 0 mg/dL Last Edit by Mamie Monroy [facility] on 12/20/24 08:06 Results Reviewed Results Reviewed: Laboratory Last Values Urine pH (Auto) 6.0 12/20/24 07:50 Specific [place] (Auto) 1.015 12/20/24 07:50 Urine Protein (Auto) 15 mg/dL 12/20/24 07:50 Glucose (UA)(Auto) 0 mg/dL 12/20/24 07:50 Urine Blood (Auto) 80 Isai/uL 12/20/24 07:50 Urine Bilirubin (Auto) 0 mg/dL 12/20/24 07:50 Urine Urobilinogen (Auto) 0.2 mg/dL 12/20/24 07:50 Leukocyte Esterase (Auto) 0 Bird/uL 12/20/24 07:50 Assessment & Plan Assessment & Plan (1) Enlarged prostate: Code(s): N40.0 - Benign prostatic hyperplasia without lower urinary tract symptoms Category: Medical (2) Abnormal cytology: Code(s): R89.6 - Abnormal cytological findings in specimens from other organs, systems and tissues Category: Medical (3) Urinary frequency: Code(s): R35.0 - Frequency of micturition Category: Medical (4) Incomplete bladder emptying: Code(s): R33.9 - Retention of urine, unspecified Category: Medical (5) Microscopic hematuria: Code(s): R31.29 - Other microscopic hematuria Category: Medical Plan In office urinalysis results reviewed with the patient today; as noted above; will send for urine cytology. PVR 2 mL. Recent PSA results reviewed with the patient today; as noted above. Previous urine cytology results were reviewed with the patient today; as noted above Continue terazosin and dutasteride as prescribed. He reports be happy with current voiding parameters. He currently denies any bothersome urinary issues or concerns. Will continue with surveillance monitoring. Follow-up in 6 months with PSA and PVR; or sooner with any issues, concerns, and or questions. Orders: Orders AMB Post Void Residual by ultrasound Today N40.0 - Benign prostatic hyperplasia without lower urinary tract symptoms Prostate Specific Antigen 6 Months N40.0 - Benign prostatic hyperplasia without lower urinary tract symptoms AMB Urinalysis Automated Today Z13.9 - Encounter for screening, unspecified Urine Cytology Today R89.6 - Abnormal cytological findings in specimens from other organs, systems and tissues Patient Instructions: The patient had an opportunity to ask questions regarding the treatment plan. All questions were answered. Physical exam, labs, and imaging were discussed and reviewed in detail. As well as risks, benefits, and discussion of treatment choices. No major barriers to understanding were identified. The patient expressed understanding and agreement with the above treatment plan. The patient was made aware they should contact our office by phone for worsening of their current condition, the appearance of new symptoms, or with any q uestions or concerns. Compliance is encouraged with any medications and follow up testing that is ordered. It is a privilege to be allowed the opportunity to participate in? your urological care.? Again, if you have any questions or concerns If you have any questions or concerns please do not hesitate to contact me. The office is [phone]. This note is constructed using voice recognition software. While every effort has been made to ensure accuracy coach operator errors may have been included. Yours sincerely, CLAIRE Mohr Coding Level of Care Code Est Pt Level 3 (53322) Complex EM visit Add On G2211 Diagnoses Enlarged prostate N40.0 Abnormal cytology R89.6 Urinary frequency R35.0 Incomplete bladder emptying R33.9 Microscopic hematuria R31.29 CPT Codes Post Residual Void - PVR CPT Code: 39663-Fdts Void Residual by ultrasound ([id number])
== END 2024-12-20 08:16 | disposition home or self-care (01) ==
LOC: HO.HUSH 07:36
PROVIDERS: PCP Internal Medicine; Visit Provider Nurse Practitioner Family
DX: N40.0 Benign prostatic hyperplasia without lower urinary tract symptoms (principal); R89.6 Abnormal cytological findings in specimens from other organs, systems and tissues; R35.0 Frequency of micturition; R33.9 Retention of urine, unspecified; R31.29 Other microscopic hematuria; Z13.9 Encounter for screening, unspecified
CPT/HCPCS: 99213; G2211

== ENCOUNTER 2025-01-11 08:43 | Day surgery (SDC) | payer MEDICARE, SELFPAY ==
--- OUTSIDE RECORDS SUMMARY | 2024-12-16 08:02 | XMS_ITS ---
Author Organization [facility] Address [address] [place] [id number] Care Team Providers Care Employment Counselor Name Role Phone Priyanka Garcia Primary Care Provider UnavailJuan Daniel Reyna Jr Unavailable Allergies Allergen (clinical drug ingredient) Drug/Non Drug Allergy documented on EMR Reaction Allergy Type Onset Date Status Penicillin Unknown Drug Allergy Active REASON FOR VISIT patient presents today for COLON RECALL Medications Medication SIG (Take, Route, Frequency, Duration) Notes Start Date End Date Status Niacin 500 MG 1 tablet with food Orally Twice a day Active hydroCHLOROthiazide 25 MG 1 tablet Orall y once a day Active Zetia 10 MG 1 tablet Orally Once a day Active tiZANidine HCl 4 MG 1 tablet at bedtime as needed Orally Once a day Active Extra Strength Acetaminophen Active Terazosin HCl 10 MG Oral for 90 Days Active LORazepam 1 MG TAKE 1 TABLET BY ALINA 2 TIMES A DAY NEEDED FOR ANXIETY Oral for 30 Days Active Lumigan 0.01 % Ophthalmic for 90 Days Active Ezetimibe 10 MG Oral for 90 Days Active Lisinopril 2.5 MG 1 tablet Orally Once a day for 30 day(s) Active Flonase 50 MCG/DOSE 1 spray in each nost ril Nasally Once a day for 30 day(s) Active Lumigan 0.01 % 1 drop into affected eye in the evening Ophthalmic Once a day Active Flomax 0.4 MG 1 capsule Orally Onc e a day for 30 day(s) Active Dupixent 300 MG/2ML Subcutaneous for 28 Days Active Immunizations Vaccine Route Administration Date Status Comme nts Influenza Unknown 12/13/2024 Refused Problems Problem Type SNOMED Code ICD Code Onset Dates Problem Status W/U Status Risk Notes Problem H/O: high risk medication (604236024) High risk medication use (Z79.899) Active confirmed Problem History of adenomatous polyp of colon (828223324) History of adenomatous polyp of colon (Z86.0101) Active confirmed Vital Signs Temperature 97.7 degrees Fahrenheit 12/14/19 25 Blood pressure systolic 001 mm Hg 12/14/19 25 Blood pressure diastolic 01 mm Hg 025 Height 73.5 in 12/13/2024 Weight 198.6 lbs 12/13/2024 BMI 25.84 kg/m2 12/13/2024 Encounters Encounter Location Date Provider Diagnosis [facility] [address] [facility] [address] [place] [address] 12/13/2024 Juan Daniel Ross Jr Colon cancer screening Z12.11 ; High risk medication use Z79.899 and History of adenomatous polyp of colon Z86.0101 Assessments Encounter Date Diagnosis (ICD Code) Assessment Notes Treatment Notes Treatment Clinical Notes Section Notes 12/13/2024 Colon cancer screening (ICD-10 - Z12.11) BPH we discussed colonoscopy today. We discussed risks and benefits of the procedure today. He understands these and agrees to proceed. This will be scheduled at his convenience. He is advised to stop hydrochlorothiazide the day before the procedure. 12/13/2024 High risk medication use (ICD-10 - Z79.899) BPH we discussed colonoscopy today. We discussed risks and benefits of the procedure today. He understands these and agrees to proceed. This will be scheduled at his convenience. He is advised to stop hydrochlorothiazide the day before the procedure. 12/13/2024 History of adenomatous polyp of colon (ICD-10 - Z86.0101) BPH we discussed colonoscopy today. We discussed risks and benefits of the procedure today. He understands these and agrees to proceed. This will be scheduled at his convenience. He is advised to stop hydrochlorothiazide the day before the procedure. Plan Of Treatment Future Test Test Name Order Date COLONOSCOPY 12/13/2024 Next Appt Details Follow Up: 1 Year, Reason: Provider Name:Juan Daniel esaclante Jr, 01/11/2025 11:40:00 AM, [address] [place] [address], [phone], Progress Notes * SAGE RODRIGUEZDOB: (69 yo M)Acc No.[id number]:12/13/2024 Progress Notes Patient:SAGE JUDD Provider:?Juan Daniel Ross MD :1955???Age:69 Y???Sex:Male Alex e:12/13/2024 Address:[address] [place], [place] [id number] Pcp:Priyanka Noel Subjective: * Chief Complaints: * ???1. patient presents today for COLON RECALL. * HPI: ???New symptom(s):? Sage is a pleasant 69-year-old man seen today in consultation. He has a personal history of colon polyps that are adenomatous, as well as diverticular disease. He was last seen for colonoscopy in September 2019,. This was done because of a personal history of colon polyps and was negative for polyps. 5-year follow-up examination was recommended. We discussed and reviewed this today.He has no complaints of rectal bleeding. He does have occasional diarrhea and constipation. Weight and appetite have been stable. He reports a recent evaluation in the emergency department in September 2019 for with complaints of back pain and groin pain. He was evaluated in the emergency department with laboratory studies which we reviewed imaging was also obtained. A diagnosis of early diverticulitis was entertained by the radiologist who examined the images. The emergency physician did not recommend antibiotics and cautioned him regarding the results of the findings and what to do if anything worsened. Since that time, he has done well. He has no complaints of abdominal pain, rectal bleeding, or change in his bowel habits otherwise than above. * ROS:?General/Constitutional:?Change in appetite?denies.?Fatigue?denies.?ENT:?Patient denies?difficulty swallowing.?Respiratory:?Patient denies?shortness of breath.?Cardiovascular:?Patient denies?chest pain.?Gastrointestinal:?Comments?See HPI for details.?Genitourinary:?Difficulty urinating?denies.?Incontinence?denies.?Musculoskeletal:?Patient denies?muscle aches.?Skin:?Patient denies?pruritis.?Neurologic:?Patient denies?low back pain.?Psychiatric:?Patient denies?mental or physical abuse.? * Medical History:?Colonoscopy 09/30, normal, 5-year follow-up for personal history of colon polyps., Hyperlipidemia, Insomnia, Glaucoma, Hypertension, CAROLE/CPAP, Diverticulosis, BPH. * Surgical History:?parathyroi dectomy . * Family History:?Father: dece ased, History of colon polyps, diagnosed with Colon polyps, Heart disease, Diabetes.?Mother: , History of colon polyps., diagnosed with Colon polyps, HTN (hypertension).? No family history of liver cancer or colon cancer. * Social History:?Tobacco Use:?Tobacco Use/Smoking?Are you a: former smoker , How long has it been since you last smoked?: > 10 years.?Drugs/Alcohol:?Alcohol Screen?Points: 0, Interpretation: Negative.?Miscellaneous:?Marital status: . Occupation: computer programer/ retired. * Medications:?Taking tiZANidi ne HCl 4 MG Tablet 1 tablet at bedtime as needed Orally Once a day , Taking Extra Strength Acetaminophen , Taking hydroCHLOROthiazide 25 MG Tablet 1 tablet Orally once a day , Taking Zetia 10 MG Tablet 1 tablet Orally Once a day , Taking Niacin 500 MG Tablet Extended Release 1 tablet with food Orally Twice a day , Taking Lisinopril 2.5 MG Tablet 1 tablet Orally Once a day , Taking Lumigan 0.01 % Solution 1 drop into affected eye in the evening Ophthalmic Once a day , Taking Flomax 0.4 MG Capsule 1 capsule Orally Once a day , Taking Flonase 50 MCG/DOSE Inhaler 1 spray in each nostril Nasally Once a day , Taking Dupixent 300 MG/2ML Solution Auto-injector Subcutaneous , Taking Ezetimibe 10 MG Tablet Oral , Taking LORazepam 1 MG Tablet TAKE 1 TABLET BY MOUTH 2 TIMES A DAY NEEDED FOR ANXIETY Oral , Taking Lumigan 0.01 % Solution Ophthalmic , Taking Terazosin HCl 10 MG Capsule Oral , Discontinued Ibuprofen 200 MG Tablet 1 tablet with food or milk as needed Orally Three times a day , Medication List reviewed and reconciled with the patient * Allergies:?Penicillin. Objective: * Vitals:?Wt:198.6lbs, Ht: 73. 5 in, BMI:25.84Index, BP:001/01mm Hg, Temp:97.7, Wt- k.08. * Examination: ???General Examination: ?GENERAL APPEARANCE:?in no acute distress.?HEAD:?normocephalic.?EYES:?sclera non-icteric.?ORAL CAVITY:?mucosa moist.?NECK/THYROID:?no lymphadenopathy.?SKIN:?anicteric.?HEART:?S1, S2 normal, no murmurs.?LUNGS:?clear to auscultation bilaterally.?CHEST:?normal shape and expansion.?ABDOMEN:?soft, nontender, nondistended, bowel sounds present, no organomegaly .?EXTREMITIES:?no clubbing, cyanosis, or edema.?PSYCH:?cognitive function intact.? Assessment: * Assessment: 1.?High risk medication use - Z79.899 (Primary)???2.?Colon cancer screening - Z12.11???3.?History of adenomatous polyp of colon - Z86.0101??? BPH we discussed colonoscopy today. We discussed risks and benefits of the procedure today. He understands these and agrees to proceed. This will be scheduled at his convenience. He is advised to stop hydrochlorothiazide the day before the procedure. Plan: * Treatment: * Immunizations:? Influenza (Not administered - Refused: Patient decision) * Procedure Codes:?3017F COLOR ECTAL CA SCREEN DOC REV, G9903 Pt scrn tbco id as non user, G9744 PATIENT NOT ELIG D/T ACTIVE DX HTN * Preventive Medicine:? ??Screenings:?Fall Risk Screening?Fall Risk Assessment:?No falls in the past year,?Screening:?No falls in the past year,?Assessment:?Not performed, no reason specified,?Plan of Care:?Not documented, no reason specified.? ??Counseling:?Care goal follow-up plan:?Above Normal BMI Follow-up?Dietary management education, guidance, and counseling,?BMI management provided?Yes.? * Follow Up:?1 Year * * Sign off status: Completed true * Provider:?Juan Daniel Ross MD Date:?0 12/13/2024 Generated for Valentín rios/Eladio/eTransmitting on:?12/16/2024 08:02 AM EDT History and Physical Notes * HPI (History of Present Illness) Category Sub-Category Detail Notes Category Not es New symptom(s) Sage is a pleasant 69-year-old man seen today in consultation. He has a personal history of colon polyps that are adenomatous, as well as diverticular disease. He was last seen for colonoscopy in September 2019,. This was done because of a personal history of colon polyps and was negative for polyps. 5-year follow-up examination was recommended. We discussed and reviewed this today.He has no complaints of rectal bleeding. He does have occasional diarrhea and constipation. Weight and appetite have been stable. He reports a recent evaluation in the emergency department in September 2019 for with complaints of back pain and groin pain. He was evaluated in the emergency department with laboratory studies which we reviewed imaging was also obtained. A diagnosis of early diverticulitis was entertained by the radiologist who examined the images. The emergency physician did not recommend antibiotics and cautioned him regarding the results of the findings and what to do if anything worsened. Since that time, he has done well. He has no complaints of abdominal pain, rectal bleeding, or change in his bowel habits otherwise than above. Examination Category Sub-Category Detail Notes Category Not es General Examination GENERAL APPEARANCE: in no acute di stress HEAD: normocephalic EYES: sclera non-icteric NECK/THYROID: no lymphadenopathy HEART: S1, S2 normal, no mu rmurs CHEST: normal shape and exp ansion LUNGS: clear to auscultatio n bilaterally ABDOMEN: soft, nontender, non distended, bowel sounds present, no organomegaly SKIN: anicteric EXTREMITIES: no clubbing, cyanosi s, or edema PSYCH: cognitive function i ntact ORAL CAVITY: mucosa moist
[2025-01-07 14:58] VITALS: BMI 25.8
--- NOTE | 2025-01-10 09:06 | HO.ANESPROP2 ---
Documented by User: Sapna Gutierrez NP 01/10/25 09:18 HPI - Anesthesia Eval Consult details Narrative: 69yo M for Colonoscopy [facility] Active Problems Active Problems: All Active Problems Microscopic hematuria (Acute) Tubular adenoma of colon (Acute) Enlarged prostate (Acute) Abnormal cytology (Acute) Urinary frequency (Acute) Incomplete bladder emptying (Acute) Pulmonary nodules (Acute) Myofascial pain syndrome (Acute) Low back pain (Acute) Glaucoma (Acute) Cataract (Acute) Postnasal drip (Acute) Chronic nasal congestion (Acute) Chronic cough (Acute) Obstructive sleep apnea (Acute) Right shoulder pain (Acute) Hypertension (Acute) Spondylosis of lumbar region without myelopathy or radiculopathy (Acute) Lumbar radiculopathy (Acute) Numbness of toes (Acute) Sciatica (Acute) Past Medical History Medical History Deviated septum Cataracts, both eyes Hypertension Chronic cough Pulmonary nodules Obstructive sleep apnea Right shoulder pain Spondylosis of lumbar region without myelopathy or radiculopathy Tubular adenoma of colon Family History Family History Father Diabetes Heart failure Mother Respiratory failure Family history of problems with anesthesia: No Surgical History Surgical History History of colonoscopy History of radiofrequency ablation (RFA) of nerve of lumbar spine History of parathyroidectomy History of Problems with Anesthesia: No Social History Social History Housing: House Alcohol intake: never Patient Tobacco Use Status: Former Tobacco user Tobacco use type: Cigarette e-Cigarette/Vaping Use: Never Used Second Hand Smoke Exposure: No Use of substances other than those prescribed or required for medical reasons: No Are you DNR?: No Advance Directives: No Advance Directives Information Provided: Yes Poor oral hygiene: No service: No Current occupational status: retired Cognitive needs: No Hearing needs: No Vision needs: Yes Meds Allergies Allergy/AdvReac Type Severity Reaction Status Date / Time Penicillins (PENICILLINS) Allergy Unknown HIVES Verified 12/20/24 07:49 Home Medications ?Medication ?Instructions ?Recorded ?Confirmed ?Last Taken ?Type bimatoprost 0.01 % eye drops 1 drp ophthalmic (eye) DAILY 05/08/20 01/07/25 Unknown History acetaminophen 500 mg tablet 500 mg PO Q6H PRN Pain 05/31/20 01/07/25 01/11/25 History (Tylenol Extra Strength) niacin 500 mg tablet 500 mg PO BID 06/02/20 01/07/25 Unknown History dupilumab 300 mg/2 mL subcutaneous mg subcut 12/20/24 Unknown History pen injector (Dupixent) Exam Height,Weight and Vital Signs: Height 6 ft 1.5 in Weight 90.083 kg Assessment and Plan Assessment Anesthesia Assessment: Chart Reviewed Final Anesthetic Review Family History of Problems with Anesthesia: No History of Problems with Anesthesia: No Documented by User: Shweta Way MD 01/11/25 10:12 [facility] Past Medical History Medical History Deviated septum Cataracts, both eyes Hypertension Chronic cough Pulmonary nodules Obstructive sleep apnea Right shoulder pain Spondylosis of lumbar region without myelopathy or radiculopathy Tubular adenoma of colon Family History Family History Father Diabetes Heart failure Mother Respiratory failure Surgical History Surgical History History of colonoscopy History of radiofrequency ablation (RFA) of nerve of lumbar spine History of parathyroidectomy Social History Social History Housing: House Alcohol intake: never Patient Tobacco Use Status: Former Tobacco user Tobacco use type: Cigarette e-Cigarette/Vaping Use: Never Used Second Hand Smoke Exposure: No Use of substances other than those prescribed or required for medical reasons: No Are you DNR?: No Advance Directives: No Advance Directives Information Provided: Yes Poor oral hygiene: No service: No Current occupational status: retired Cognitive needs: No Hearing needs: No Vision needs: Yes Meds Allergies Allergy/AdvReac Type Severity Reaction Status Date / Time Penicillins (PENICILLINS) Allergy Unknown HIVES Verified 12/20/24 07:49 Home Medications ?Medication ?Instructions ?Recorded ?Confirmed ?Last Taken ?Type bimatoprost 0.01 % eye drops 1 drp ophthalmic (eye) DAILY 05/08/20 01/07/25 Unknown History acetaminophen 500 mg tablet 500 mg PO Q6H PRN Pain 05/31/20 01/07/25 01/11/25 History (Tylenol Extra Strength) niacin 500 mg tablet 500 mg PO BID 06/02/20 01/07/25 Unknown History dupilumab 300 mg/2 mL subcutaneous mg subcut 12/20/24 Unknown History pen injector (Dupixent) Exam Airway Mallampati Class: II TM Dist: >3cm Neck ROM: Limited Heart: rrr Lungs: cta Assessment and Plan Assessment Anesthesia Assessment: Anesthesia Plan Discussed Final Anesthetic Review NPO: Yes ASA Class: III (erik) Final Preanesthetic Review: No Changes in Pt Med Stat, Meds/Allgs Chart Reviewed, Consent Obtained/Reviewed and Anes Risks/Benef Reviewed Patient Risk: Intermediate Procedure Risk: Low Anesthetic Plan Anesthetic Plan: MAC: Disposition: Standard PACU
[2025-01-11 09:19] VITALS: BMI 24.7
[2025-01-11 09:21] VITALS: BP 135/80; PULSE 102; RESP 16; TEMP 36.8; O2SAT 96
[2025-01-11] MEDS: Lactated Ringers 1,000 ML 100 ML IVCONT (09:38)
--- NOTE | 2025-01-11 10:06 | MHC.SHP ---
Pre-Procedural Eval Section A - 24 Hr Update-Section A only Date of Service: 01/11/25 The patient is an INPATIENT: No Changes since office visit: No Cold of Flu in the past 2 weeks, No New Medical Problems, No Changes in Medication and No Patient answered all questions The patient has been examined within 24 hours of the surgical procedure. The History & Physical has been completed within 30 days and I have reviewed it.: Yes Section B - Complete if H&P > 30 days Chief Complaint: screening Allergies: Allergies Allergy/AdvReac Type Severity Reaction Status Date / Time Penicillins (PENICILLINS) Allergy Unknown HIVES Verified 12/20/24 07:49 Plan I have reviewed the history and physical and performed a pertinent physical examination on my patient. No changes have occurred unless specified. Time Spent With Patient Time: Total time managing care of this patient today ____ minutes.
[2025-01-11 10:43] VITALS: BP 102/63; PULSE 73; RESP 14; TEMP 36.1; O2SAT 97
[2025-01-11 10:58] VITALS: BP 121/86; PULSE 73; RESP 14; O2SAT 97
[2025-01-11 11:03] VITALS: BP 134/89; PULSE 84; RESP 18; TEMP 37.2; O2SAT 97
--- NOTE | 2025-01-11 11:50 | OP_ITS ---
DATE OF SERVICE: 01/11/2025 SURGEON: Juan Daniel Ross MD INDICATIONS: Colon cancer screening and prior history of adenomatous colon polyps. PREOPERATIVE DIAGNOSIS: POSTOPERATIVE DIAGNOSIS: PROCEDURE PERFORMED: Colonoscopy to the terminal ileum. ESTIMATED BLOOD LOSS: COMPLICATIONS: ANESTHESIA: Monitored anesthesia care. ASSISTANTS: SPECIMENS: DESCRIPTION OF PROCEDURE: A history and physical was performed. The risks and benefits of the procedure were explained to the patient. Informed consent was obtained. The patient was placed in a left lateral decubitus position. A digital rectal exam was performed and was found to be normal. The Olympus pediatric video colonoscope was introduced into the rectum and advanced to the cecum. The cecum was identified by transillumination, palpation, and identification of the IC valve. Examination was performed. The scope was removed. He tolerated the procedure well and was taken to recovery area in stable condition. FINDINGS: The terminal ileum was examined and appeared normal. The visualized colonic mucosa was normal. The quality of the prep was fair with some liquid retained stool mainly in the distal descending colon and sigmoid. This was washed and suctioned. There were some pieces of undigested food material that clogged the scope, so examination of this area is somewhat limited. No polyps were seen. There was moderate sigmoid diverticulosis. Retroflexed examination showed moderate-sized internal hemorrhoids. IMPRESSION: Normal colonoscopy. RECOMMENDATION: 1. Followup as needed. 2. Repeat colonoscopy could be considered in 5 years based on the limitation of today's prep and personal history of colon polyps. This is optional based on age. MD HERMELINDA Garza/MODL / [id number] MTD
== END 2025-01-11 11:43 | disposition home or self-care (01) ==
PROVIDERS: PCP Internal Medicine; Visit Provider Internal Medicine Gastroenterology
PROC: 0DJD8ZZ Inspection of Lower Intestinal Tract, Via Natural or Artificial Opening Endoscopic (ICD-10-PCS; CPT 45378; principal; 2025-01-11 10:50)
DX: Z12.11 Encounter for screening for malignant neoplasm of colon (principal); Z86.0101 Personal history of adenomatous and serrated colon polyps; Z83.719 Family history of colon polyps, unspecified; K57.30 Diverticulosis of large intestine without perforation or abscess without bleeding; K64.8 Other hemorrhoids; K59.00 Constipation, unspecified; R19.7 Diarrhea, unspecified; E78.5 Hyperlipidemia, unspecified; I10 Essential (primary) hypertension; N40.0 Benign prostatic hyperplasia without lower urinary tract symptoms; G47.33 Obstructive sleep apnea (adult) (pediatric); G47.00 Insomnia, unspecified; H40.9 Unspecified glaucoma; Z79.899 Other long term (current) drug therapy; Z99.89 Dependence on other enabling machines and devices; Z88.0 Allergy status to penicillin; Z87.891 Personal history of nicotine dependence
CPT/HCPCS: G0105; J2704

== ENCOUNTER 2025-02-03 10:42 | Outpatient (AMB) | payer MEDICARE, SELFPAY ==
--- NOTE | 2025-02-03 10:44 | A.OFFPC_ITS ---
Vital Signs 02/03/25 10:47 Height 6 ft 2 in Weight 194 lb BMI 24.9 BP 110/72 Blood Pressure Location Lt brachial Position Sitting Intake Visit Reasons: Med Follow Up Intake Note: Patient here for medication follow up Furrier Shop Supervisor Required: No Accompanied by: Self / Same As Patient Allergies Penicillins (PENICILLINS) Allergy (Unknown, Verified 02/03/25 10:56) HIVES Medication List - Last Reconciled 02/03/25 by Priyanka Noel MD acetaminophen (Tylenol Extra Strength) 500 mg PO Q6H PRN bimatoprost 0.01% 1 drp ophthalmic (eye) DAILY CPAP (CPAP Machine/Device) Pressure 8 dupilumab (Dupixent) mg subcut dutasteride (Avodart) 0.5 mg PO DAILY ezetimibe 10 mg PO DAILY hydrochlorothiazide 25 mg PO DAILY lisinopril 2.5 mg PO DAILY lorazepam 1 mg PO BID PRN niacin 500 mg PO BID terazosin 10 mg PO BEDTIME 90 days Tobacco use date assessed: 09/09/24 Dental Screening Dental Screen Date: 09/09/24 HPI HPI Comments History of Present Illness Details This is a 69-year-old male that comes to transfer care from retiring doctor. He has hypertension well controlled with medications. Has obstructive sleep apnea and will need a new machine and will contact pulmonology for this matter. He also has anxiety well controlled with benzodiazepines as needed and he is aware can cause addiction, sedation and memory loss. Has not experienced any side effect. He takes care of his which has Lewy body dementia and can get agitated at some point. He also has an incidental finding in CT of the chest showing a 1.6 cm splenic artery aneurysm and a CT scan of the abdomen was ordered to confirm this. [facility] Medical History (Updated 02/03/25 @ 11:12 by Priyanka Noel MD) Deviated septum Cataracts, both eyes Hypertension Chronic cough Pulmonary nodules Obstructive sleep apnea Right shoulder pain Spondylosis of lumbar region without myelopathy or radiculopathy Tubular adenoma of colon Surgical History History of colonoscopy History of radiofrequency ablation (RFA) of nerve of lumbar spine History of parathyroidectomy Family History Father Diabetes Heart failure Mother Respiratory failure Social History Housing: House Alcohol intake: never Patient Tobacco Use Status: Former Tobacco user Tobacco use type: Cigarette e-Cigarette/Vaping Use: Never Used Second Hand Smoke Exposure: No service: No Current occupational status: retired Cognitive needs: No Hearing needs: No Vision needs: Yes Questionnaire PHQ-9 Over the last 2 weeks, how often have you been bothered by any of the following problems? 1. Little interest or pleasure in doing things: not at all 2. Feeling down, depressed, or hopeless: not at all 3. Trouble falling or staying asleep, or sleeping too much: not at all 4. Feeling tired or having little energy: several days 5. Poor appetite or overeating: not at all 6. Feeling bad about yourself - or that you are a failure or have let yourself or your family down: not at all 7. Trouble concentrating on things, such as reading the newspaper or watching television: not at all 8. Moving or speaking so slowly that other people could have noticed. Or the opposite - being so fidgety or restless that you have been moving around a lot more than usual: not at all 9. Thoughts that you would be better off or of hurting yourself in some way: not at all Total score: 1 Depression Screening Interpretation: Negative Depression Screening Done: Yes 59005 - PHQ-9 Billing: Yes Source: Developed by Drs. Shmuel Blackman, Dian Westfall, Jones Palacio and colleagues, with an educational silvino from [employer]. Thrive Questionnaire Date Thrive assessed: 02/03/25 I am a: Patient What is your living situation today?: I have a steady place to live Within the past 12 months, did the food you bought not last and you didn't have the money to get more?: Never true Within the past 12 months, did you worry whether your food would run out before you got money to buy more?: Never true Do you have trouble paying for medicines?: No Do you have trouble getting transportation to medical appointments?: No Do you have trouble paying your heating and electricity bill?: No Do you have trouble taking care of your child, family member or friend?: No Do you have trouble with day-to-day activities such as bathing, preparing meals, shopping, managing finances, etc.?: No Are you currently unemployed and looking for a job?: No Are you interested in more education?: No Please select the resources that you would like help with: None Currently or been in a relationship where the following occur: No concerns reported THRIVE Score: 0 AUDIT C Alcohol Use Questionnaire (AUDIT-C) 1. How often do you have a drink containing alcohol?: Never Total Score: 0 Score Reviewed/Action Taken: No PATEL-7 AMB Questionnaire PATEL-7 Date PATEL - 7 assessed: 02/03/25 Feeling nervous, anxious, or on edge: 2 = More than half the days Not being able to stop or control worryin = Not at all Worrying too much about different things: 1 = Several days Trouble relaxin = Several days Being so restless that it is hard to sit still: 0 = Not at all Becoming easily annoyed or irritable: 1 = Several days Feeling afraid as if something awful might happen: 0 = Not at all Total PATEL-7 score (0-4 normal; 5-9 mild; 10-14 moderate; 15-21 severe): 5 Source: Developed by Drs. Shmuel Blackman, Dian Westfall, Jones Palacio and colleagues, with an educational silvino from [employer]. PATEL-7 Assessment Billing PATEL-7 Assessment Tool: PATEL-7 Assessment 40110 Review of Systems Const All systems reviewed & are unremarkable except as noted in HPI and below Card Denies chest pain at rest, Denies chest pain with activity, Denies edema, Denies irregular heart rhythm, Denies claudication, Denies dyspnea, Denies dyspnea on exertion, Denies orthopnea, Denies paroxysmal nocturnal dyspnea and Denies slow heart rate Resp Denies cough, Denies dyspnea and Denies dyspnea on exertion GI Denies abdominal pain, Denies change in bowel habits, Denies excessive flatus, Denies nausea and Denies vomiting Denies urinary hesitancy, Denies urinary incontinence and Denies urinary urgency Musc Denies atrophy, Denies deformity and Denies limited range of motion Physical exam (Primary Care) Vital Signs: Last Vital Signs BP 110/72 02/03/25 10:47 BMI result Body Mass Index 24.9 Tobacco/Smoking Status: Tobacco use Status Tobacco use date assessed 09/09/24 02/03/25 10:50 Patient Tobacco Use Status Former Tobacco user 02/03/25 10:50 Tobacco use type Cigarette 02/03/25 10:50 e-Cigarette/Vaping Use Never Used 02/03/25 10:50 PHQ-9: PHQ-9 Score PHQ-9: Total score 1 02/03/25 10:50 Depression Screening Interpretation: Negative Thrive Assessment: Date of Thrive Assessment Date Thrive assessed 02/03/25 02/03/25 10:50 Currently or been in a relationship where the following occur: No concerns reported Resp Effort & Inspection: normal respiratory effort Auscultation: clear to auscultation bilaterally Cardio Jugular venous distension: no JVD Rate: regular rate Rhythm: regular rhythm Heart sounds: S1 normal heart sound present and S2 normal heart sound present Coding Level of Care Code Est Pt Level 4 (20684) Complex EM visit Add On G2211 Diagnoses Hypertension I10 Splenic artery aneurysm I72.8 Obstructive sleep apnea G47.33 Anxiety F41.9 Additional Codes PHQ-9 - 92674 - PHQ-9 Billing: Yes ([id number]) PATEL-7 Assessment Billing - PATEL-7 Assessment Tool: PATEL-7 Assessment 61273 ([id number]) Time Spent (min) 21 Assessment & Plan Assessment & Plan (1) Hypertension: Code(s): I10 - Essential (primary) hypertension Category: Medical (2) Splenic artery aneurysm: Code(s): I72.8 - Aneurysm of other specified arteries Category: Medical (3) Obstructive sleep apnea: Code(s): G47.33 - Obstructive sleep apnea (adult) (pediatric) Category: Medical (4) Anxiety: Code(s): F41.9 - Anxiety disorder, unspecified Category: Medical Plan Continue current meds. Blood pressure goal is equal or less than 130/80. CT scan of the abdomen order to check splenic artery aneurysm. Orders: Orders CT abdomen w IV con Today I72.8 - Aneurysm of other specified arteries Lipid Panel 4 Months E78.5 - Hyperlipidemia, unspecified Comprehensive [place]. Panel Fast 4 Months I10 - Essential (primary) hypertension Medications: Changed From lorazepam 1 mg PO BID PRN 60 tabs 0RF anxiety To lorazepam 1 mg PO TID PRN 80 tabs 0RF anxiety From lorazepam 1 mg PO TID PRN 80 tabs 0RF anxiety To lorazepam 1 mg PO TID PRN 80 tabs 5RF anxiety 30 days
[2025-02-03 10:47] VITALS: BP 110/72; BMI 24.9
--- OUTSIDE RECORDS SUMMARY | 2025-02-03 11:35 | XMS_ITS | Patient Health Record ---
Author Organization [facility] Address [address] [place] [address] Care Team Providers Care Mobile Lounge Driver Name Role Phone Priyanka Garcia Primary Care Provider Unavailab Juan Daniel Petty Jr Unavailable Allergies Allergen (clinical drug ingredient) Drug/Non Drug Allergy documented on EMR Reaction Allergy Type Onset Date Status Penicillin Unknown Drug Allergy Active Reason For Referral No Information Medications Medication SIG (Take, Route, Frequency, Duration) Notes Start Date End Date Status Niacin 500 MG 1 tablet with food Orally Twice a day Active Lisinopril 2.5 MG 1 tablet Orally Once a day for 30 day(s) Active hydroCHLOROthiazide 25 MG 1 tablet Orall y once a day Active Terazosin HCl 10 MG Oral for 90 Days Active Zetia 10 MG 1 tablet Orally Once a day Active Flonase 50 MCG/DOSE 1 spray in each nost ril Nasally Once a day for 30 day(s) Active Lumigan 0.01 % 1 drop into affected eye in the evening Ophthalmic Once a day Active Flomax 0.4 MG 1 capsule Orally Onc e a day for 30 day(s) Active tiZANidine HCl 4 MG 1 tablet at bedtime as needed Orally Once a day Active LORazepam 1 MG TAKE 1 TABLET BY ALINA 2 TIMES A DAY NEEDED FOR ANXIETY Oral for 30 Days Active Extra Strength Acetaminophen Active Lumigan 0.01 % Ophthalmic for 90 Days Active Dupixent 300 MG/2ML Subcutaneous for 28 Days Active Ezetimibe 10 MG Oral for 90 Days Active Immunizations Vaccine Route Administration Date Status Comme nts Influenza Unknown 04/13/2019 Administered Influenza Unknown 12/13/2024 Refused Problems Problem Type SNOMED Code ICD Code Onset Dates Problem Status W/U Status Risk Notes Problem 504845502 Colon cancer screening (Z12.11) Active confirmed Problem 363393549 vermin exterminator (current) use of non-steroidal anti-inflammato altagracia (NSAID) (Z79.1) Active confirmed Problem H/O: high risk medication (593431554) High risk medication use (Z79.899) Active confirmed Problem History of adenomatous polyp of colon (912483104) History of adenomatous polyp of colon (Z86.0101) Active confirmed Vital Signs Temperature 97.7 degrees Fahrenheit 12/13/2024 Blood pressure diastolic 01 mm Hg 12/13/2024 Height 73.5 in 12/13/2024 Blood pressure systolic 001 mm Hg 12/13/2024 Weight 198.6 lbs 12/13/2024 BMI 25.84 kg/m2 12/13/2024 Encounters Encounter Location Date Provider Diagnosis [facility] [place] [address] [place] [id number] 01/11/2025 Juan Daniel Ross Jr [facility] [address] [place] [address] 12/13/2024 Juan Daniel Ross Jr Colon cancer [...] Test Test Name Order Date COLONOSCOPY 12/13/2024 Insurance Providers Payer Name Payer Address Payer Phone Subscriber Number Group Number Insured Name Patient Relationship to Insured Coverage Start Date Coverage End Date [facility] [address] [facility] AYAH PORTER [phone] [id number] ALLEN RODRIGUEZ Self - patient is the insured 5 Medical (General) History Medical History History ICD Code Colonoscopy 09/30, normal, 5- year follow-up for personal history of colon polyps. Hyperlipidemia insomnia glaucoma hypertension CAROLE/CPAP Diverticulosis BPH Surgical History Surgery Date(Month/Year) parathyroidectomy
--- OUTSIDE RECORDS SUMMARY | 2025-02-03 11:35 | XMS_ITS | Encounter Summary ---
Author Organization [facility] Address [address] [place] [address] Phone Care Team Providers Care Warehouse Foreman Name Role Phone Becki Street MD Unavailable Antonio Gutierrez DO Unavailable [phone] Kayleen Dodge NP Primary Care Provider Familia George MD Primary Care Provider [phone] Encounter Details Date Type Department Care Team (Late st Contact Info) Description 05/26/2018 Ancillary Orders [facility], X-Ray - [address] [id number] Paola Gómez NP [address] [place] [phone] [email or web address] Radiculopathy, lumbar region Social History Tobacco Use Types Packs/Day Years Used Date Smoking Tobacco: Former Smokeless Tobacco: Never Sex and Gender Information Value Date Recorded Sex Assigned at Not on file Legal Sex Male 9:56 PM EDT Gender Identity Not on file Sexual Orientation Not on file documented as of this encounter Plan of Treatment Not on file documented as of this encounter Results * XR LUMBOSACRAL SPINE 4 OR MORE VIEWS (05/26/2018 10:08 AM EST) Anatomical Region Laterality Modality L-spine Radiographic Natalie ging 05/26/2018 10:5 4 AM EST Impressions 05/26/2018 11:15 AM EST Moderate multilevel degenerative disc disease with mild scoliosis and lesser facet degenerative change at the lumbosacral junction. POS - [id number] Edited by: Kendra Baldwin on 05/26/2018 11:02 AM Narrative 05/26/2018 11:15 AM EST Lumbar spine five views. No prior. There is disc height loss throughout. There is endplate spurring of moderate degree throughout. There is vacuum phenomena at L5-S1. There is scoliosis convex left, apex L3. No compression deformity. No bony destructive lesions. There is facet joint space loss and mild sclerosis at L5-S1 on the right with milder changes at L4-5 and on the left at L5-S1. No gross sclerosis or erosion SI joints. Procedure Note Mehrdad Monroy MD - 05/26/2018 Lumbar spine five views. No prior. There is disc height loss throughout.There is endplate spurring of moderate degree throughout. There is vacuumphenomena at L5- S1. There is scoliosis convex left, apex L3. Nocompression deformity. No bony destructive lesions. There is facet jointspace loss and mild sclerosis at L5-S1 on the right with milder changes atL4-5 and on the left at L5-S1. No gross sclerosis or erosion SI joints. IMPRESSION: Moderate multilevel degenerative disc disease with mild scoliosis andlesser facet degenerative change at the lumbosacral junction. POS - [id number] Edited by: Kendra Baldwin on 05/26/2018 11:02 AM Paola Gómez NP IMG XR SPINE Final Result documented in this encounter Visit Diagnoses Diagnosis Radiculopathy, lumbar region Thoracic or lumbosacral neuritis or radiculitis, unspecified Radiculopathy, lumbar region Thoracic or lumbosacral neuritis or radiculitis, unspecified documented in this encounter Care Teams Warehouse Foreman Relationship Specialty Start Date End Date Kayleen Dodge NP [address] [place] [address] Dr MARTINEZ, AYAH [address] [email or web address] PCP - General Family Medicine 03/13/18 03/12/20 Familia George MD [address] [place] [address] PCP - General Internal Medicine 03/13/[address] MD [address] [place] [address], [address] [place] [address] [email or web address] Historical LMR Provider 05/03/1707/21 Antonio Gutierrez DO [address] [place] [address] Historical LMR Provider 05/03/17 documented as of this encounter Additional Source Comments The information contained in this document represents components of the legal health record. It is not the complete legal health record.[facility]
== END 2025-02-03 11:09 | disposition home or self-care (01) ==
LOC: HO.HMCH 10:43
PROVIDERS: PCP Internal Medicine; Visit Provider Internal Medicine
DX: I10 Essential (primary) hypertension (principal); I72.8 Aneurysm of other specified arteries; G47.33 Obstructive sleep apnea (adult) (pediatric); F41.9 Anxiety disorder, unspecified

== ENCOUNTER → 2025-02-03 10:42 | Outpatient (BNVA) | payer MEDICARE, SELFPAY | PROVIDERS: PCP Internal Medicine; Visit Provider Internal Medicine | DX: I10 Essential (primary) hypertension (principal); I72.8 Aneurysm of other specified arteries; G47.33 Obstructive sleep apnea (adult) (pediatric); F41.9 Anxiety disorder, unspecified; Z13.31 Encounter for screening for depression; Z13.39 Encounter for screening examination for other mental health and behavioral disorders | CPT/HCPCS: 96127; 99212 ==

== ENCOUNTER 2025-03-10 15:10 | Outpatient (REF) | payer MEDICARE, SELFPAY ==
--- OUTSIDE RECORDS SUMMARY | 2025-01-11 06:50 | XMS_ITS ---
Author Organization [facility] Address [address] [place] [phone] Care Team Providers Care X Ray Equipment Tester Name Role Phone Priyanka Garcia Primary Care Provider Juan Daniel Price Jr REASON FOR VISIT screening Encounters Encounter Location Date Provider Diagnosis [facility] [place] [address] [place] [phone] 01/11/2025 Juan Daniel Ross Jr Plan Of Treatment No Information Progress Notes * ALLEN RODRIGUEZDOB: 5 (69 yo M)Acc No.[id number]:01/11/2025 COLON WITH MAC Patient: ALLEN LEÓN Provider: Nellie Ross MD :1955 A ge:69 Y S ex:Male Date:01/11/2025 Address:[address] [place], [place] [phone] Pcp:Priyanka Noel Subjective: * Chief Complaints: * [...] MD Date: 0 01/11/2025 Generated for Urmilai ng/Fajdg/eTransmitting on: 03/10/2025 03:48 PM EDT
--- NOTE | ~2025-03-10 | CT_ITS ---
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 TECHNIQUE: CT angiogram of the abdomen was performed following administration of 85 mL Omnipaque 350 using standard departmental protocol. Coronal and sagittal reformatted images were generated and reviewed. This CT exam was performed with one or more of the following dose reduction techniques: automated exposure control, adjustment of the mA and/or kV according to patient size, use of iterative reconstruction technique. DLP: 200 mGy-cm FINDINGS: LOWER CHEST: The visualized lung bases are clear. There is no pleural effusion. CARDIOVASCULATURE: The heart is normal in size. There is no pericardial effusion. LIVER: The liver is normal in size and contour. No liver mass is identified. The hepatic and portal veins are patent. GALLBLADDER / BILE DUCTS: The gallbladder is unremarkable. There is no intra or extrahepatic biliary ductal dilatation. SPLEEN: The spleen is normal in size. No focal splenic lesion is identified. PANCREAS: The pancreas is unremarkable in appearance. ADRENAL GLANDS: Within normal limits. KIDNEYS/RETROPERITONEUM: No renal calculi are identified. There is no hydronephrosis. There are bilateral renal cysts including a 3.0 cm cyst at the upper pole of the right kidney and a 4.7 cm cyst at the lower pole of the right kidney. On the left, there is a 5.2 cm cyst at the upper pole and a 5.4 cm cyst at the lower pole. LYMPH NODES: No abdominal lymphadenopathy. VASCULATURE: The abdominal aorta is normal in caliber. 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 The superior mesenteric artery, inferior mesenteric artery, and bilateral renal arteries are patent and unremarkable. MESENTERY/PERITONEUM: No free fluid. No masses. There is no free intraperitoneal gas. STOMACH: There is a moderate hiatal hernia. The remainder of the stomach is collapsed. SMALL BOWEL: The visualized small bowel is normal in caliber. COLON: The visualized portion of the colon is unremarkable. BONES / SOFT TISSUES: No suspicious bony or soft tissue abnormalities. 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 3. Moderate hiatal hernia. 4. Bilateral renal cysts as described. Electronically signed by: Shmuel Stevenson MD 03/11/2025 07:10 AM EDT
--- OUTSIDE RECORDS SUMMARY | 2025-03-10 15:48 | XMS_ITS | Clinical Summary ---
Author Organization [facility] Address [address] [place] [address] Phone Care Team Providers Care Fare Collector Name Role Phone Familia George MD Primary Care Provider [phone] Allergies Active Allergy Reactions Criticality Noted Date Comments Penicillin G Sodium Rash Low 12/13/2016 Medications methocarbamoL (ROBAXIN) 750 MG tablet Take 1 tablet by mouth 3 (three) times a day as needed. 7 Active ibuprofen (ADVIL,MOTRIN) 800 MG tablet Take 1 tablet by mouth 3 (three) times a day as needed. Active tamsulosin (FLOMAX) 0.4 mg Cp24 Take 1 capsule by mouth daily. Active niacin (SLO-NIACIN) 500 mg tablet Take 500 mg by mouth 2 (two) times a day. Active ezetimibe (ZETIA) 10 mg tablet Take 1 tablet by mouth daily. Active hydroCHLOROthia zide (HYDRODIURIL) 25 MG tablet Take 1 tablet by mouth daily. Active bimatoprost (LUMIGAN) 0.01 % Drop Place 1 drop into each eye nightly. Active doxycycline monohydrate (MONODOX) 100 MG capsule Take 1 capsule (100 mg total) by mouth 2 (two) times a day. 42 capsule 0 Active Additional Information Patient not taking.Reported on 04/30/2022 lisinopril (PRINIVIL,ZESTR IL) 2.5 MG tablet 2 Active LORazepam (ATIVAN) 1 MG tablet Take 1 mg by mouth 2 (two) times a day as needed. 2 Active tiZANidine (ZANAFLEX) 4 MG tablet Take 4 mg by mouth every 6 (six) hours as needed. Active naproxen (NAPROSYN) 500 MG tablet Take 1 tablet (500 mg total) by mouth 2 (two) times a day for 3 days. Then twice daily as needed for pain, inflammation 20 tablet 2 Active cyclobenzaprine (FLEXERIL) 10 MG tablet Take 1 tablet (10 mg total) by mouth 3 (three) times a day as needed (muscle). 15 tablet 2 Active Additional Information Patient not taking.Reported on 11/29/2022 ketorolac (ACULAR) 0.5 % ophthalmic solution 3 Active Active Problems Problem Noted Date Diagnosed Date Chronic right-sided low back pain without sciati ca 03/11/2018 Pain of right hip joint 03/11/2018 Muscle spasm 03/11/2018 Immunizations Immunization Administration Dates Next Due INFLUENZA, SPLIT VIRUS, TRIVALENT PF 04/29/2017, 04/02/2016 Influenza Quadrivalent Adjuv anted Preservative Free IM 04/26/2021 Influenza Quadrivalent w/ Preservative IM 2018,05/19/2018,03/18/2017 Pneumococcal polysaccharide PPSV23 05/13/2017 Tdap 05/07/2016 Zoster recombinant 11/09/2018 Social History Tobacco Use Types Packs/Day Years Used Date Smoking Tobacco: Former Smokeless Tobacco: Never Tobacco Cessation:Counseling Given: Not Answered Education Answer Date Recorded Are you interested in more education? Not on perlita e 11/08/2022 Are you concerned about learning? Not on file 11/08/2022 No 11/08/2022 No 11/08/2022 Digital Access Answer Date Recorded No 12/07/2022 No 12/07/2022 No 12/07/2022 Reliable internet access at home? Not on file 12/07/2022 Device with a working camera? Not on file Sex and Gender Information Value Date Recorded Sex Assigned at Not on file Legal Sex Male 9:56 PM EDT Gender Identity Not on file Sexual Orientation Not on file Last Filed Vital Signs Vital Sign Reading Time Taken Comments Blood Pressure 117/74 11/29/2022 3:38 PM EDT Pulse 117 11/29/2022 3:38 PM EDT Temperature 36.9 C (98.4 F) 11/29/2022 3:38 PM EDT Respiratory Rate 16 11/29/2022 3:38 PM EDT Oxygen Saturation 97% 11/29/2022 3:38 PM EDT Inhaled Oxygen Concentration - - Weight 97.5 kg (215 lb) 11/29/2022 3:38 PM EDT Height 188 cm (6' 2 ) 11/29/2022 3:38 PM EDT Body Mass Index 27.6 11/29/2022 3:38 PM EDT Plan of Treatment Health Maintenance Due Date Last Done Comments LIPID PANEL 1954 DEPRESSION SCREENING 1966 SMOKING Hx and SMOKELESS TOBACCO SCREENING 11/06/1967 HEPATITIS C SCREENING 1972 COLOGUARD 11/06/1999 COLONOSCOPY 11/06/1999 COLORECTAL CANCER SCREENING 11/06/1999 FIT TEST 11/06/1999 FOBT 11/06/1999 SIGMOIDOSCOPY 11/06/1999 VIRTUAL COLONOSCOPY 11/06/1999 PNEUMOCOCCAL VACCINES (50+ years) (2 of 2 - PCV) 05/13/2018 05/13/2017 ZOSTER VACCINES (2 of 2) 01/04/2019 11/09/2018 ABDOMINAL AORTIC ANEURYSM (AAA) SCREENING 11/06/2019 CREATININE LEVEL 03/13/2021 03/13/2020 POTASSIUM LEVEL 03/13/2021 03/13/2020 COVID-19 VACCINE ( season) 2024 05/02/2021, 10/09/2020, 09/17/2020 INFLUENZA VACCINE (#1) 2025 , 04/27/2019, 05/19/2018, Additional history exists Adult Td,Tdap Booster 05/07/2026 05/07/2016 RSV VACCINE (1 - 1-dose 75+ series) 2029 HEPATITIS A VACCINES Aged Out No long er eligible based on patient's age to complete this topic HIB VACCINES Aged Out No longer eligi ble based on patient's age to complete this topic MENINGOCOCCAL VACCINES (ACWY) Aged Out No longer eligible based on patient's age to complete this topic MENINGOCOCCAL VACCINES (B) Aged Out N o longer eligible based on patient's age to complete this topic Medical Devices Not on file Procedures Procedure Name Priority Date/Time Associated Diagnosis Comments BASIC METABOLIC PANEL Routine 03/13/2020 8:53 AM EDT Rash and other nonspecific skin eruption from Last 3 Months or Most Recently Relevant to Health Maintenance Results * Basic metabolic panel (03/13/2020 8:53 AM EDT) SODIUM 140 133 - 146 mmol/L [facility] CHLORIDE 101 96 - 108 mmol/L [facility] POTASSIUM 3.6 3.3 - 5.1 mmol/L [facility] CO2 27 21 - 35 mmol/L [facility] BUN 18 6 - 19 mg/dL [facility] CREATININE 1.00 0.5 - 1.5 mg/dL [facility] GLUCOSE 98 70 - 99 mg/dL [facility] CALCIUM 9.6 8.4 - 10.3 mg/dL [facility] EGFR 79 >59 mL/min/1.7 3m2 [facility] Comment:Estimated glomerular filtration rate calculated using the CKD-EPI equation. ANION GAP 16 10 - 20 mmol/L [facility] Blood 03/13/2020 8:53 AM EDT 03/13/2020 12:28 PM EDT Susana Fontaine GUN TESTER LAB BLOOD ORDERABLES Final Result [facility] [address] [place] [address] from Last 3 Months or Most Recently Relevant to Health Maintenance Insurance [employer] MEDIC[employer] [place] [address] [place] [address] MEDICARE HMO REPLACEMENT [employer] MEDIC[employer] HMO REPLACEMENT [facility] MEDICARE HMO REPLACEMENT [facility] MEDICARE HMO REPLACEMENT MEDICARE HMO REPLACEMENT MEDICARE HMO REPLACEMENT MEDICARE HMO REPLACEMENT [employer] HMO REPLACEMENT Care Teams Fare Collector Relationship Specialty Start Date End Date Familia George MD [address] [place] [address] Dr Johnson [address] [place] [id number] PCP - General Internal Medicine 03/13/20 Additional Source Comments The information contained in this document represents components of the legal health record. It is not the complete legal health record.[facility]
--- OUTSIDE RECORDS SUMMARY | 2025-03-10 15:48 | XMS_ITS | Encounter Summary ---
Author Organization [facility] Address [address] [place] [address] Phone Care Team Providers Care Lithographic Photographer Apprentice Name Role Phone Becki Street MD Unavailable [phone] Antonio Gutierrez DO Unavailable [phone] Kayleen Dodge NP Primary Care Provider Familia George MD Primary Care Provider [phone] Reason for Referral * Physical Therapy (Routine) - Closed Specialty Diagnoses / Procedures Referred By Karlo aguiar Referred To Contact Physical Therapy Diagnoses Encounter for rehabilitation System, Provider Not In, PhD [phone] [place] [address] Phone: tel: Referral ID Status Reason Start Date Expiration Date Visits Re quested Visits Authorized [id number] Closed 07/28/2018 07/13/2019 12 12 Encounter Details Date Type Department Care Team (Late st Contact Info) Description 07/22/2018 Transcribe Orders [facility] [address] [place] [address] [phone] Kayleen Dodge, SIENNA [address] [place] [phone] [email or web address] Encounter for rehabilitation (Primary Dx) Social History Tobacco Use Types Packs/Day Years Used Date Smoking Tobacco: Former Smokeless Tobacco: Never Sex and Gender Information Value Date Recorded Sex Assigned at Not on file Legal Sex Male 9:56 PM EDT Gender Identity Not on file Sexual Orientation Not on file documented as of this encounter Plan of Treatment Scheduled Referrals Name Type Priority Associated Diagnoses Orde r Schedule Ambulatory referral to [facility] Physical Therapy Outpatient Referral Routine Encounter for rehabilitation Ordered: 07/22/2018 documented as of this encounter Visit Diagnoses Diagnosis Encounter for rehabilitation- Primary documented in this encounter Care Teams Lithographic Photographer Apprentice Relationship Specialty Start Date End Date Kayleen Dodge NP [address] [place] [address] Dr JOHNSON [address] [place] [address] [place] [address] [email or web address] PCP - General Family Medicine 03/13/18 03/12/20 Familia George MD [address] [place] [address] Dr Johnson [facility] [address] PCP - General Internal Medicine 03/13/[address] MD [address] [place] [address], [facility] [address] [place] [address] [email or web address] Historical LMR Provider 05/03/1707/21 Antonio Gutierrez DO [address] [place] [address] Historical LMR Provider 05/03/17 documented as of this encounter Additional Source Comments The information contained in this document represents components of the legal health record. It is not the complete legal health record.[facility]
--- OUTSIDE RECORDS SUMMARY | 2025-03-10 15:48 | XMS_ITS | Patient Health Record ---
Author Organization [facility] Address [address] [place] [phone] Care Team Providers Care Track Repair Supervisor Name Role Phone Priyanka Garcia Primary Care Provider Unavailab Juan Daniel Petty Jr Unavailable [phone] Allergies Allergen (clinical drug ingredient) Drug/Non Drug [...] Problem Status W/U Status Risk Notes Problem 449276698 Colon cancer screening (Z12.11) Active confirmed Problem 613525008 alf (current) use of non-steroidal anti-inflammator ies (NSAID) (Z79.1) Active confirmed Problem H/O: high risk medication (137446386) High risk medication use (Z79.899) Active confirmed Problem History of adenomatous polyp of colon (Z86.0101) Active confirmed Vital Signs Temperature 97.7 degrees Fahrenheit 12/13/2024 Blood pressure diastolic 01 mm Hg 12/13/2024 Height 73.5 in 12/13/2024 Blood pressure systolic 001 mm Hg 12/13/2024 Weight 198.6 lbs 12/13/2024 BMI 25.84 kg/m2 12/13/2024 Encounters Encounter Location Date Provider Diagnosis [facility] Out[facility] [address] [place], [place] [phone] 01/11/2025 Juan Daniel Ross Jr [facility] [address] [place] [address] 12/13/2024 Juan Daniel Ross Jr Colon cancer [...] Insured Coverage Start Date Coverage End Date [facility] [address] [facility] AYAH PORTER [phone] [id number] ALLEN RODRIGUEZ Self - patient is the insured 5 Medical (General) History Medical History History ICD Code Colonoscopy 09/30, normal, 5- year follow-up for personal history of colon polyps. Hyperlipidemia insomnia glaucoma hypertension CAROLE/CPAP Diverticulosis BPH Surgical History Surgery Date(Month/Year) parathyroidectomy
--- OUTSIDE RECORDS SUMMARY | 2025-03-10 15:48 | XMS_ITS | Encounter Summary ---
Author Organization [facility] Address [address] [place] [address] Phone Care Team Providers Care Pearl Maker Name Role Phone Becki Street MD Unavailable [phone] Antonio Gutierrez DO Unavailable [phone] Kayleen Dodge NP Primary Care Provider Familia George MD Primary Care Provider Encounter Details Date Type Department Care Team (Late st Contact Info) Description 05/26/2018 Ancillary Orders [facility], X-Ray - [address] [phone] Paola Gómez NP [address] [place] [phone] [email or web address] Radiculopathy, lumbar region Social History Tobacco Use [...] unspecified documented in this encounter Care Teams Pearl Maker Relationship Specialty Start Date End Date Kayleen Dodge NP [address] [place] [address] Dr MARTINEZ, AYAH [address] [email or web address] PCP - General Family Medicine 03/13/18 03/12/20 Familia George MD [address] [place] [address] PCP - General Internal Medicine 03/13/[address] MD [address] [place] [address], [address] [place] [address] [email or web address] Historical LMR Provider 05/03/1707/21 Antonio Gutierrez DO [address] [place] [address] Historical LMR Provider 05/03/17 documented as of this encounter Additional Source Comments The information contained in this document represents components of the legal health record. It is not the complete legal health record.[facility]
[2025-03-10] MEDS: iohexoL 350 MG/ML 100 ML INFUS..BTL 80 ML IV (16:47)
== END 2025-03-10 15:11 | disposition home or self-care (01) ==
LOC: HO.CT 15:10
PROVIDERS: Visit Provider Internal Medicine
DX: I72.8 Aneurysm of other specified arteries (principal)
CPT/HCPCS: 74175; Q9967

== ENCOUNTER → 2025-03-10 15:14 | Outpatient (BNV) | payer MEDICARE, SELFPAY | PROVIDERS: Visit Provider Radiology Diagnostic Radiology | DX: I72.8 Aneurysm of other specified arteries (principal); K44.9 Diaphragmatic hernia without obstruction or gangrene; N28.1 Cyst of kidney, acquired | CPT/HCPCS: 74175 ==

== ENCOUNTER 2025-05-05 10:52 | Outpatient (AMB) | payer MEDICARE, SELFPAY ==
[2025-05-05 11:14] VITALS: BP 118/60; PULSE 99; RESP 18; TEMP 36.3; O2SAT 98; BMI 25.1
--- NOTE | 2025-05-05 11:14 | A.OFFPC_ITS ---
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: No Accompanied by: Self / Same As Patient Allergies Penicillins (PENICILLINS) Allergy (Unknown, Verified 05/05/25 11:31) HIVES Medication List - Last Reconciled 05/05/25 by Priyanka Noel MD acetaminophen (Tylenol Extra Strength) 500 mg PO Q6H PRN bimatoprost 0.01% 1 drp ophthalmic (eye) DAILY CPAP (CPAP Machine/Device) Pressure 8 dupilumab (Dupixent) mg subcut dutasteride (Avodart) 0.5 mg PO DAILY ezetimibe 10 mg PO DAILY hydrochlorothiazide 25 mg PO DAILY lisinopril 2.5 mg PO DAILY lorazepam 1 mg PO TID PRN 30 days niacin 500 mg PO BID terazosin 10 mg PO BEDTIME 90 days Tobacco use date assessed: 05/05/25 Fall risk assessment: No Falls in past year Last assessed Fall Risk: 05/05/25 Dental Screening Dental Screen Date: 05/05/25 Did you have a dental visit in the last 12 months?: Yes Did you have a dental problem in the last 6 months where you did not have access to dental care?: No Was dental information given to patient?: Patient has dentist HPI HPI Comments History of Present Illness Details The patient is a 69-year-old male presenting for follow-up 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 The patient is scheduled to see a vascular surgeon next month for further evaluation and management. The patient reports a history of hypertension, which is currently well- controlled. He is allergic to penicillin and takes Tylenol for neck discomfort, which he wishes to reduce. The patient uses a CPAP machine for sleep apnea, but the machine is malfunctioning. He is awaiting a home test to qualify for a new machine, with efforts to expedite the process before the current machine fails completely. The patient has been diagnosed with pulmonary nodules and is scheduled for a CT scan of the chest in June. He will follow up with pulmonology for his sleep apnea management. The patient has a history of prostate enlargement, which is being managed with medication adjustments by urology. He reports that his bladder was not emptying properly, but a new medication has improved this condition. [facility] Medical History Deviated septum Cataracts, both eyes Hypertension Chronic cough Pulmonary nodules Obstructive sleep apnea Right shoulder pain Spondylosis of lumbar region without myelopathy or radiculopathy Tubular adenoma of colon Surgical History History of colonoscopy History of radiofrequency ablation (RFA) of nerve of lumbar spine History of parathyroidectomy Family History Father Diabetes Heart failure Mother Respiratory failure Social History Housing: House Alcohol intake: never Patient Tobacco Use Status: Former Tobacco user Tobacco use type: Cigarette e-Cigarette/Vaping Use: Never Used Second Hand Smoke Exposure: No service: No Current occupational status: retired Cognitive needs: No Hearing needs: No Vision needs: Yes Questionnaire Thrive Questionnaire Date Thrive assessed: 02/03/25 I am a: Patient What is your living situation today?: I have a steady place to live Within the past 12 months, did the food you bought not last and you didn't have the money to get more?: Never true Within the past 12 months, did you worry whether your food would run out before you got money to buy more?: Never true Do you have trouble paying for medicines?: No Do you have trouble getting transportation to medical appointments?: No Do you have trouble paying your heating and electricity bill?: No Do you have trouble taking care of your child, family member or friend?: No Do you have trouble with day-to-day activities such as bathing, preparing meals, shopping, managing finances, etc.?: No Are you currently unemployed and looking for a job?: No Are you interested in more education?: No Please select the resources that you would like help with: None Currently or been in a relationship where the following occur: No concerns reported THRIVE Score: 0 PATEL-7 AMB Questionnaire PATEL-7 Date PATEL - 7 assessed: 02/03/25 Source: Developed by Drs. Shmuel Blackman, Dian Westfall, Jones Palacio and colleagues, with an educational silvino from [employer]. Review of Systems Const All systems reviewed & are unremarkable except as noted in HPI and below Card Denies chest pain at rest, Denies chest pain with activity, Denies edema, Denies irregular heart rhythm, Denies claudication, Denies dyspnea, Denies dyspnea on exertion, Denies orthopnea, Denies paroxysmal nocturnal dyspnea and Denies slow heart rate Resp Denies cough, Denies dyspnea and Denies dyspnea on exertion Musc Denies atrophy, Denies deformity and Denies limited range of motion Skin/Breast Denies bleeding lesions, Denies changing lesions and Denies rash Physical exam (Primary Care) Vital Signs: Last Vital Signs Temp 97.3 F 05/05/25 11:14 Pulse 99 05/05/25 11:14 Resp 18 05/05/25 11:14 BP 118/60 05/05/25 11:14 Pulse Ox 98 05/05/25 11:14 Oxygen Delivery Method Room Air 05/05/25 11:14 BMI result Body Mass Index 25.1 Tobacco/Smoking Status: Tobacco use Status Tobacco use date assessed 05/05/25 05/05/25 11:23 Patient Tobacco Use Status Former Tobacco user 05/05/25 11:23 Tobacco use type Cigarette 05/05/25 11:23 e-Cigarette/Vaping Use Never Used 05/05/25 11:23 Thrive Assessment: Date of Thrive Assessment Date Thrive assessed 02/03/25 05/05/25 11:23 Currently or been in a relationship where the following occur: No concerns reported Resp Effort & Inspection: normal respiratory effort Auscultation: clear to auscultation bilaterally Cardio Jugular venous distension: no JVD Rate: regular rate Rhythm: regular rhythm Heart sounds: S1 normal heart sound present and S2 normal heart sound present Extrem General: Yes full ROM Coding Level of Care Code Est Pt Level 4 (89310) Complex EM visit Add On G2211 Diagnoses Hypertension I10 Splenic artery aneurysm I72.8 Celiac artery aneurysm I72.8 Anxiety F41.9 Obstructive sleep apnea G47.33 Pulmonary nodules R91.8 Time Spent (min) 21 Assessment & Plan Assessment & Plan (1) Hypertension: Code(s): I10 - Essential (primary) hypertension Category: Medical (2) Splenic artery aneurysm: Code(s): I72.8 - Aneurysm of other specified arteries Category: Medical (3) Celiac artery aneurysm: Code(s): I72.8 - Aneurysm of other specified arteries Category: Medical (4) Anxiety: Code(s): F41.9 - Anxiety disorder, unspecified Category: Medical (5) Obstructive sleep apnea: Code(s): G47.33 - Obstructive sleep apnea (adult) (pediatric) Category: Medical (6) Pulmonary nodules: Code(s): R91.8 - Other nonspecific abnormal finding of lung field Category: Medical Plan Plan 1. Splenic Artery Aneurysm The patient is scheduled to see a vascular surgeon next month for further evaluation of the splenic artery aneurysm, which measures 1.6 cm. Management options will be determined based on the surgeon's assessment, which may include monitoring or intervention depending on the aneurysm's characteristics. 2. Celiac [place] Aneurysm The celiac axis aneurysm, measuring 1.3 cm, will be evaluated alongside the splenic artery aneurysm during the vascular surgery consultation. The approach to management will be similar, focusing on the size and risk factors associated with the aneurysm. 3. Pulmonary Nodules The patient is scheduled for a CT scan of the chest in June to assess the pulmonary nodules. Follow-up with pulmonology is planned to manage the patient's sleep apnea and evaluate the nodules. 4. Prostate Enlargement The patient is under the care of urology for prostate enlargement, with medication adjustments being made to improve bladder emptying. The current treatment appears effective, as the patient reports improvement in symptoms. 5. Sleep Apnea The patient uses a CPAP machine for sleep apnea, which is currently malfunctioning. A home test is scheduled to qualify for a new machine, with efforts to expedite the process. Orders: Orders Lipid Panel Today E78.5 - Hyperlipidemia, unspecified Comprehensive [place]. Panel Fast Today I10 - Essential (primary) hypertension
== END 2025-05-05 11:43 | disposition home or self-care (01) ==
LOC: HO.HMCH 10:53
PROVIDERS: PCP Internal Medicine; Visit Provider Internal Medicine
DX: I10 Essential (primary) hypertension (principal); I72.8 Aneurysm of other specified arteries; F41.9 Anxiety disorder, unspecified; G47.33 Obstructive sleep apnea (adult) (pediatric); R91.8 Other nonspecific abnormal finding of lung field

== ENCOUNTER → 2025-05-05 10:52 | Outpatient (BNVA) | payer MEDICARE, SELFPAY | PROVIDERS: PCP Internal Medicine; Visit Provider Internal Medicine | DX: I10 Essential (primary) hypertension (principal); I72.8 Aneurysm of other specified arteries; G47.30 Sleep apnea, unspecified; R91.8 Other nonspecific abnormal finding of lung field; N40.0 Benign prostatic hyperplasia without lower urinary tract symptoms; F41.9 Anxiety disorder, unspecified; G47.33 Obstructive sleep apnea (adult) (pediatric); R19.8 Other specified symptoms and signs involving the digestive system and abdomen; Z99.89 Dependence on other enabling machines and devices | CPT/HCPCS: 99212 ==

== ENCOUNTER 2025-05-17 09:20 | Outpatient (AMB) | payer MEDICARE, SELFPAY ==
--- OUTSIDE RECORDS SUMMARY | 2025-01-11 05:50 | XMS_ITS ---
Author Organization [facility] Address [address] [place] [phone] Care Team Providers Care Agricultural Produce Washer Name Role Phone Priyanka Garcia Primary Care Provider Juan Daniel Price Jr [phone] REASON FOR VISIT screening Encounters Encounter Location Date Provider Diagnosis [facility] [place] [address] [place] [phone] 01/11/2025 Juan Daniel Ross Jr Plan Of Treatment No Information Progress Notes * ALLEN RODRIGUEZDOB: 5 (69 yo M)Acc No.[id number]:01/11/2025 COLON WITH MAC Patient: ALLEN LEÓN Provider: Nellie Ross MD :1955 A ge:69 Y S ex:Male Date:01/11/2025 Address:[address] [place], [place] [phone] Pcp:Priyanka Noel Subjective: * Chief Complaints: * 1 . Screening. * Medical History: Objective: * Vitals: Assessment: Plan: * Treatment: * * The named appointment provid er may or may not be the originator of this progress note, and it is not deemed complete until electronically signed by the appointment provider. Sign off status: Pending * Provider: Nellie Ross MD Date: 0 01/11/2025 Generated for Vaelntín rios/Eladio/eTransmitting on: 07/17/2024 10:11 AM EST
[2025-05-17 09:23] VITALS: BMI 25.0
--- NOTE | 2025-05-17 09:23 | MHC.OFFVIS ---
Vital Signs 05/17/25 09:23 Height 6 ft 2 in Weight 195 lb BMI 25.0 Intake Visit Reasons: CASE MANAGER SPECIALIST/HMG referral for aneurysm of the splenic artery Intake Note: CASE MANAGER SPECIALIST/ Referred for splenic aneurysm s/p CTA Abd 03/10/25. Pt states there was an incidental finding on a chest CT which is done routinely for his lungs. Ram Press Operator Required: No Accompanied by: Spouse Allergies Penicillins (PENICILLINS) Allergy (Unknown, Verified 05/17/25 09:35) HIVES HPI HPI CASE MANAGER SPECIALIST/HMG referral for aneurysm of the splenic artery: Details: The patient is a 69-year-old male presenting with a splenic artery aneurysm. The aneurysm was discovered incidentally during a CT scan performed for pulmonary nodules. The aneurysm measures approximately 1.6 cm and is located on one of the arteries leading to the spleen. The patient has no history of smoking beyond a brief period in his youth and denies any history of diabetes or abdominal trauma. He reports no significant back issues that would be relevant to the current condition. He now presents for vascular evaluation [facility] Medical History Deviated septum Cataracts, both eyes Hypertension Chronic cough Pulmonary nodules Obstructive sleep apnea Right shoulder pain Spondylosis of lumbar region without myelopathy or radiculopathy Tubular adenoma of colon Surgical History History of colonoscopy History of radiofrequency ablation (RFA) of nerve of lumbar spine History of parathyroidectomy Family History Father Diabetes Heart failure Mother Respiratory failure Social History Housing: House Alcohol intake: never Patient Tobacco Use Status: Former Tobacco user Tobacco use type: Cigarette e-Cigarette/Vaping Use: Never Used Second Hand Smoke Exposure: No service: No Current occupational status: retired Cognitive needs: No Hearing needs: No Vision needs: Yes Review of Systems Const All systems reviewed & are unremarkable except as noted in HPI and below Reports no additional complaints ENT Reports Normal hearing present Card Denies chest pain, Denies chest pain at rest, Denies chest pain with activity and Denies pedal edema Resp Denies cough GI Denies abdominal pain Musc Denies abnormal gait, Denies muscle cramps and Denies radiating pain into limb Skin/Breast Denies skin ulcer and Denies wounds Neuro Reports Normal hearing present and Denies abnormal gait Psych Reports no additional complaints Physical Exam Vital Signs: BMI result Body Mass Index 25.0 Const General: cooperative, healthy appearing and comfortable Orientation/consciousness: oriented to person, oriented to place and oriented to time HEENT Head: Yes normal to inspection Neck Neck: Yes normal visual inspection Carotids: no bruits Chest Chest palpation & inspection: normal inspection of the chest Resp Effort & Inspection: normal respiratory effort and able to speak in complete sentences Auscultation: clear to auscultation bilaterally, no crackles, no rales, no rhonchi and no wheezes Cardio Rate: regular rate Rhythm: regular rhythm Heart sounds: S1 normal heart sound present and S2 normal heart sound present Bruits: no carotid bruits Peripheral pulses: Peripheral pulses 2+ throughout GI Inspection: Yes normal to inspection Skin Wounds: no wounds Hair: normal Neuro General: oriented to person, oriented to place and oriented to time Cranial nerves: Yes CN's II-XII intact bilaterally and Yes Normal hearing present Cognition (Neuro): normal cognition Motor exam (neuro): 5/5 motor strength present throughout Extrem Other: venous exam: No significant superficial varicosities or spider telangiectasias, minimal edema General: No clubbing, No cyanosis and No edema Psych Appearance: grossly normal Mental Status: mental status grossly normal Speech and movement: Normal speech and movement present Results Reviewed Results Reviewed: CT scan of 03/10/2025 demonstrates 1.6 cm splenic artery aneurysm. Written report and images were reviewed. Assessment & Plan Assessment & Plan (1) Splenic artery aneurysm: Code(s): I72.8 - Aneurysm of other specified arteries Category: Medical Plan: During the visit, I discussed with the patient the incidental finding of a splenic artery aneurysm measuring 1.6 cm, identified during a CT scan for pulmonary nodules. I explained that the aneurysm is not currently a cause for concern and does not require surgical intervention unless it grows to 3 cm or larger. We agreed to monitor the aneurysm with a follow-up CT scan in one year to ensure it remains stable. Orders: Orders Blood Urea Nitrogen 1 Year I72.8 - Aneurysm of other specified arteries Creatinine 1 Year I72.8 - Aneurysm of other specified arteries CT angio abdomen pelvis 1 Year I72.8 - Aneurysm of other specified arteries Coding Level of Care Code Est Pt Level 4 (79177) Diagnoses Splenic artery aneurysm I72.8
--- OUTSIDE RECORDS SUMMARY | 2025-05-17 10:11 | XMS_ITS | Patient Health Record ---
Author Organization [facility] Address [address] [place] [id number] Care Team Providers Care Lead Advisor Name Role Phone Priyanka Garcia Primary Care [...] 2.5 MG 1 tablet Orally Once a day; Duration: 30 day(s) Active hydroCHLOROthiazide 25 MG 1 tablet Orall y once a day Active Terazosin HCl 10 MG Oral; Duration: 90 Days Active Zetia 10 MG 1 tablet Orally Once a day Active Flonase 50 MCG/DOSE 1 spray in each nost ril Nasally Once a day; Duration: 30 day(s) Active Lumigan 0.01 % 1 drop into affected eye in the evening Ophthalmic Once a day Active Flomax 0.4 MG 1 capsule Orally Onc e a day; Duration: 30 day(s) Active tiZANidine HCl 4 MG 1 tablet at bedtime as needed Orally Once a day Active LORazepam 1 MG TAKE 1 TABLET BY ALINA TH 2 TIMES A DAY NEEDED FOR ANXIETY Oral; Duration: 30 Days Active Extra Strength Acetaminophen Active Lumigan 0.01 % Ophthalmic; Duration : 90 Days Active Dupixent 300 MG/2ML Subcutaneous; Durati on: 28 Days Active Ezetimibe 10 MG Oral; Duration: 90 Days Active Immunizations Vaccine Route Administration Date Status Comme nts Influenza Unknown 04/13/2019 Administered Influenza Unknown 12/13/2024 Refused Problems Problem Type SNOMED Code ICD Code Onset Dates Problem Status W/U Status Risk Notes Problem Colon cancer screening (130923056) Colon cancer screening (Z12.11) Active confirmed Problem nursing home current use of non-steroidal anti-inflammator y drug (799391572622463 ) 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) use of non-steroidal anti-inflammato altagracia (NSAID) (Z79.1) Active confirmed Problem H/O: high risk medication (735355778) High risk medication use (Z79.899) Active confirmed Problem History of adenomatous polyp of colon (742298081) History of adenomatous polyp of colon (Z86.0101) Active confirmed Vital Signs Temperature 97.7 degrees Fahrenheit 12/13/2024 Blood pressure diastolic 01 mm Hg 12/13/2024 Height 73.5 in 12/13/2024 Blood pressure systolic 001 mm Hg 12/13/2024 Weight 198.6 lbs 12/13/2024 BMI 25.84 kg/m2 12/13/2024 Encounters Encounter Location Date Provider Diagnosis [facility] [address] [place] [id number] 01/11/2025 Juan Daniel Ross Jr [facility] [address] [place] [address] 12/13/2024 Juan Daniel Ross Jr Colon cancer [...] Insured Coverage Start Date Coverage End Date [facility] [address] [place] [phone] [id number] ALLEN RODRIGUEZ Self - patient is the insured 5 Medical (General) History Medical History History ICD Code Colonoscopy 09/30, normal, 5- year follow-up for personal history of colon polyps. Hyperlipidemia insomnia glaucoma hypertension CAROLE/CPAP Diverticulosis BPH Surgical History Surgery Date(Month/Year) parathyroidectomy
--- OUTSIDE RECORDS SUMMARY | 2025-05-17 10:11 | XMS_ITS | Encounter Summary ---
Author Organization [facility] Address [address] [place] [address] Phone Care Team Providers Care Technical Applications Scientist Name Role Phone Becki Street MD Unavailable Antonio Gutierrez DO Unavailable [phone] Kayleen Dodge NP Primary Care Provider Familia George MD Primary Care Provider [phone] Encounter Details Date Type Department Care Team (Late st Contact Info) Description 05/26/2018 Ancillary Orders [facility], X-Ray - [address] [phone] Paola Gómez NP [address] [place] [phone] [email or web address] Radiculopathy, lumbar region Social History Tobacco Use [...] unspecified documented in this encounter Care Teams Technical Applications Scientist Relationship Specialty Start Date End Date Kayleen Dodge NP [address] [place] [address] Dr MARTINEZ, AYAH [address] [email or web address] PCP - General Family Medicine 03/13/18 03/12/20 Familia George MD [address] [place] [id number] PCP - General Internal Medicine 03/13/[address] MD [address] [place] [address], [address] [place] [address] [email or web address] Historical LMR Provider 05/03/1707/21 Antonio Gutierrez DO [address] [place] [address] Historical LMR Provider 05/03/17 documented as of this encounter Additional Source Comments The information contained in this document represents components of the legal health record. It is not the complete legal health record.[facility]
--- OUTSIDE RECORDS SUMMARY | 2025-05-17 10:11 | XMS_ITS | Encounter Summary ---
Author Organization [facility] Address [address] [place] [address] Phone Care Team Providers Care Parts Representative Name Role Phone Becki Street MD Unavailable [phone] Antonio Gutierrez DO Unavailable [phone] Kayleen Dodge NP Primary Care Provider Familia George MD Primary Care Provider [phone] Reason for Referral * Physical Therapy (Routine) - Closed Specialty Diagnoses / Procedures Referred By Karlo aguiar Referred To Contact Physical Therapy Diagnoses Encounter for rehabilitation System, Provider Not In, PhD [id number] [place] [phone] Phone: tel: Referral ID Status Reason Start Date Expiration Date Visits Re quested Visits Authorized [id number] Closed 07/28/2018 07/13/2019 12 12 Encounter Details Date Type Department Care Team (Late st Contact Info) Description 07/22/2018 Transcribe Orders [facility] [address] [place] [address] [phone] Kayleen Dodge NP [address] [place] [address] [phone] [email or web address] Encounter for rehabilitation (Primary Dx) Social History [...] Diagnoses Orde r Schedule Ambulatory referral to [facility] Physical Therapy Outpatient Referral Routine Encounter for rehabilitation Ordered: 07/22/2018 documented as of this encounter Visit Diagnoses Diagnosis Encounter for rehabilitation- Primary documented in this encounter Care Teams Parts Representative Relationship Specialty Start Date End Date Kayleen Dodge NP [address] [place] [address] Dr JOHNSON [address] [place] [address] [place] [address] [email or web address] PCP - General Family Medicine 03/13/18 03/12/20 Familia George MD [address] [place] [address] Dr [place] [facility] [address] PCP - General Internal Medicine 03/13/[address] MD [address] [place] [address], [facility] [address] [place] [address] [email or web address] Historical LMR Provider 05/03/1707/21 Antonio Gutierrez DO [address] [place] [address] Historical LMR Provider 05/03/17 documented as of this encounter Additional Source Comments The information contained in this document represents components of the legal health record. It is not the complete legal health record.[facility]
--- OUTSIDE RECORDS SUMMARY | 2025-05-17 10:12 | XMS_ITS | Clinical Summary ---
Author Organization [facility] Address [address] [place] [address] Phone Care Team Providers Care Aviation Mechanic Name Role Phone Familia George MD Primary Care Provider [phone] Allergies Active Allergy Reactions Criticality Noted Date [...] LEVEL 03/13/2021 03/13/2020 POTASSIUM LEVEL 03/13/2021 03/13/2020 INFLUENZA VACCINE (#1) 2025 , 04/27/2019, 05/19/2018, Additional history exists COVID-19 VACCINE ( season) 2025 05/02/2021, 10/09/2020, 09/17/2020 Adult Td,Tdap Booster 05/07/2026 05/07/2016 RSV VACCINE [...] Date/Time Associated Diagnosis Comments BASIC METABOLIC PANEL (BMP) Routine 03/13/2020 8:53 AM EDT Rash and other nonspecific skin eruption from Last 3 Months or Most Recently Relevant to Health Maintenance Results * Basic metabolic panel (03/13/2020 8:53 AM EDT) SODIUM 140 133 - 146 mmol/L [facility] CHLORIDE 101 96 - 108 mmol/L [facility] POTASSIUM 3.6 3.3 - 5.1 mmol/L [facility] CO2 27 21 - 35 mmol/L [facility] BUN 18 6 - 19 mg/dL [facility] CREATININE 1.00 0.5 - 1.5 mg/dL [facility] GLUCOSE 98 70 - 99 mg/dL [facility] CALCIUM 9.6 8.4 - 10.3 mg/dL [facility] EGFR 79 >59 mL/min/1.7 3m2 [facility] Comment:Estimated glomerular filtration rate calculated using the CKD-EPI equation. ANION GAP 16 10 - 20 mmol/L [facility] Blood 03/13/2020 8:53 AM EDT 03/13/2020 12:28 PM EDT Susana Fontaine [employer] [facility] BLOOD BKR ORDERABLES Fi nal Result [facility] [address] [place], [place] [phone] from Last 3 Months or Most Recently Relevant to Health Maintenance Insurance [employer] [place] [address] [place] [address] MEDICARE HMO REPLACEMENT [facility] MEDICARE HMO [place] [address] [place] [address] MEDICARE HMO REPLACEMENT [facility] MEDICARE HMO [place] [address] [place] [address] MEDICARE HMO REPLACEMENT MEDICARE HMO REPLACEMENT MEDICARE HMO REPLACEMENT [facility] [employer] [employer] REPLACEMENT Care Teams Aviation Mechanic Relationship Specialty Start Date End Date Familia George MD [address] [place] [address] [place] [id number] PCP - General Internal Medicine 03/13/20 Additional Source Comments The information contained in this document represents components of the legal health record. It is not the complete legal health record.[facility]
== END 2025-05-17 10:12 | disposition home or self-care (01) ==
LOC: HO.HVS 09:20
PROVIDERS: PCP Internal Medicine; Visit Provider Surgery Vascular Surgery
DX: I72.8 Aneurysm of other specified arteries (principal)
CPT/HCPCS: 99214

== ENCOUNTER → 2025-05-17 09:20 | Outpatient (BNVA) | payer MEDICARE, SELFPAY | PROVIDERS: PCP Internal Medicine; Visit Provider Surgery Vascular Surgery | DX: Z71.2 Person consulting for explanation of examination or test findings (principal); I72.8 Aneurysm of other specified arteries | CPT/HCPCS: 99212 ==

== ENCOUNTER 2025-06-13 11:55 | Outpatient (REF) | payer MEDICARE, SELFPAY ==
[2025-06-13 13:12] LABS: Alanine Aminotransferase 23 U/L (0-40); Albumin Level 4.5 g/dL (3.5-5.0); Alkaline Phosphatase 55 U/L (39-117); Anion Gap 10 (12-20); Aspartate Amino Transferase 27 U/L (5-37); Blood Urea Nitrogen 20 mg/dL (9-16); Calcium 9.6 mg/dL (8.4-10.2); Carbon Dioxide 29 mmol/L (22-29); Chloride 105 mmol/L (96-108); Cholesterol 159 mg/dL (<200); Estimated Glomerular Filt Rate > 60; HDL Cholesterol 50 mg/dL (>40); Potassium 3.7 mmol/L (3.3-5.1); Sodium 140 mmol/L (135-145); Total Protein 7.1 g/dL (6.5-8.0); Triglycerides 113 mg/dL (<150)
[2025-06-13 13:31] LABS: Prostate Specific Antigen 0.57 ng/mL (<0.05-4.0)
--- OUTSIDE RECORDS SUMMARY | 2025-06-13 15:47 | XMS_ITS | Clinical Summary ---
Author Organization [facility] Address [address] [place] [address] Phone Care Team Providers Care Preventive Medicine Physician Name Role Phone Familia George MD Primary Care Provider [phone] Allergies Active Allergy Reactions Criticality Noted Date [...] EDT) SODIUM 140 133 - 146 mmol/L [facility] CHLORIDE 101 96 - 108 mmol/L [facility] POTASSIUM 3.6 3.3 - 5.1 mmol/L [facility] CO2 27 21 - 35 mmol/L [facility] BUN 18 6 - 19 mg/dL [facility] CREATININE 1.00 0.5 - 1.5 mg/dL [facility] GLUCOSE 98 70 - 99 mg/dL [facility] CALCIUM 9.6 8.4 - 10.3 mg/dL [facility] EGFR 79 >59 mL/min/1.7 3m2 [facility] Comment:Estimated glomerular filtration rate calculated using the CKD-EPI equation. ANION GAP 16 10 - 20 mmol/L [facility] Blood 03/13/2020 8:53 AM EDT 03/13/2020 12:28 PM EDT Susana Fontaine ETCHER ELECTROLYTIC LAB BLOOD BKR ORDERABLES Fi nal Result [facility] [address], [place] [phone] from Last 3 Months or Most Recently Relevant to Health Maintenance Insurance [employer]IC[employer] HMO [place] [address] [place] [address] MEDICARE HMO REPLACEMENT [facility] MEDICARE HMO [place]EMENT [address] [place] [address] MEDICARE HMO REPLACEMENT [facility] MEDICARE HMO [place] [address] [place] [address] MEDICARE HMO REPLACEMENT MEDICARE HMO REPLACEMENT MEDICARE HMO REPLACEMENT [employer] REPLACEMENT Care Teams Preventive Medicine Physician Relationship Specialty Start Date End Date Familia George MD [address] [place] [address] [place] [address] PCP - General Internal Medicine 03/13/20 Additional Source Comments The information contained in this document represents components of the legal health record. It is not the complete legal health record.[facility]
--- OUTSIDE RECORDS SUMMARY | 2025-06-13 15:47 | XMS_ITS | Encounter Summary ---
Author Organization [facility] Address [address] [place] [address] Phone Care Team Providers Care Foot Press Operator Name Role Phone Becki Street MD Unavailable [phone] Antonio Gutierrez DO Unavailable [phone] Kayleen Dodge NP Primary Care Provider Familia George MD Primary Care Provider [phone] Encounter Details Date Type Department Care Team (Late st Contact Info) Description 05/26/2018 Ancillary Orders [facility], X-Ray - [address] [id number] Paola Gómez NP [address] [place] [phone] [email or web address] Radiculopathy, lumbar region Social History Tobacco Use [...] unspecified documented in this encounter Care Teams Foot Press Operator Relationship Specialty Start Date End Date Kayleen Dodge NP [address] [place] [address] Dr MARTINEZ, AYAH [address] [email or web address] PCP - General Family Medicine 03/13/18 03/12/20 Familia George MD [address] [place] [address] PCP - General Internal Medicine 03/13/[address] MD [address] [place] [address], [address] [place] [address] [email or web address] Historical LMR Provider 05/03/1707/21 Antonio Gutierrez DO [address] [place] [address] Historical LMR Provider 05/03/17 documented as of this encounter Additional Source Comments The information contained in this document represents components of the legal health record. It is not the complete legal health record.[facility]
--- OUTSIDE RECORDS SUMMARY | 2025-06-13 15:47 | XMS_ITS | Encounter Summary ---
Author Organization [facility] Address [address] [place] [address] Phone Care Team Providers Care Crop Grain Or Livestock Farm Manager Name Role Phone Becki Street MD Unavailable [phone] Antonio Gutierrez DO Unavailable [phone] Kayleen Dodge NP Primary Care Provider Familia George MD Primary Care Provider [phone] Reason for Referral * Physical Therapy (Routine) - Closed Specialty Diagnoses / Procedures Referred By Karlo aguiar Referred To Contact Physical Therapy Diagnoses Encounter for rehabilitation System, Provider Not In, PhD [id number] [place] [address] Phone: tel: Referral ID Status Reason Start Date Expiration Date Visits Re quested Visits Authorized [id number] Closed 07/28/2018 07/13/2019 12 12 Encounter Details Date Type Department Care Team (Late st Contact Info) Description 07/22/2018 Transcribe Orders [facility] [address] [place] [address] [phone] Kayleen Dodge NP [address] [place] [address] [phone] [email or web address] Encounter for rehabilitation (Primary Dx) Social [...] Diagnoses Orde r Schedule Ambulatory referral to [facility] Physical Therapy Outpatient Referral Routine Encounter for rehabilitation Ordered: 07/22/2018 documented as of this encounter Visit Diagnoses Diagnosis Encounter for rehabilitation- Primary documented in this encounter Care Teams Crop Grain Or Livestock Farm Manager Relationship Specialty Start Date End Date Kayleen Dodge NP [address] [place] [address] Dr JOHNSON [address] [place] [address] [place] [address] [email or web address] PCP - General Family Medicine 03/13/18 03/12/20 Familia George MD [address] [place] [address] Dr Johnson [facility] [place] [address] PCP - General Internal Medicine 03/13/[address] MD [address] [place] [address], [facility] [address] [place] [address] [email or web address] Historical LMR Provider 05/03/1707/21 Antonio Gutierrez DO [address] [place] [address] Historical LMR Provider 05/03/17 documented as of this encounter Additional Source Comments The information contained in this document represents components of the legal health record. It is not the complete legal health record.[facility]
== END 2025-06-13 11:56 | disposition home or self-care (01) ==
LOC: HO.LAB 11:55
PROVIDERS: PCP Internal Medicine; Visit Provider Nurse Practitioner Family
DX: N40.0 Benign prostatic hyperplasia without lower urinary tract symptoms (principal); E78.5 Hyperlipidemia, unspecified; I10 Essential (primary) hypertension; Z12.5 Encounter for screening for malignant neoplasm of prostate
CPT/HCPCS: 36415; 80053; 80061; 84153

== ENCOUNTER 2025-06-20 07:42 | Outpatient (AMB) | payer MEDICARE, SELFPAY ==
--- OUTSIDE RECORDS SUMMARY | 2025-01-11 05:50 | XMS_ITS ---
Author Organization [facility] Address [address] [place] [phone] Care Team Providers Care On Site Coordinator Name Role Phone Priyanka Garcia Primary Care Provider Juan Daniel Price Jr REASON FOR VISIT screening Encounters Encounter Location Date Provider Diagnosis [facility] [place] [address] [place] [phone] 01/11/2025 Juan Daniel Ross Jr Plan Of Treatment No Information Progress Notes * ALLEN RODRIGUEZDOB: 5 (69 yo M)Acc No.[id number]:01/11/2025 COLON WITH MAC Patient: ALLEN LEÓN Provider: Nellie Ross MD :1955 A ge:69 Y S ex:Male Date:01/11/2025 Address:[address] [place], [place] [phone] Pcp:Priyanka Noel Subjective: * Chief Complaints: * S creening Billing Information: * Procedure Codes: * The named appointment provid er may or may not be the originator of this progress note, and it is not deemed complete until electronically signed by the appointment provider. Sign off status: Pending * Provider: Nellie Ross MD Date: 0 01/11/2025 Generated for Urmilai blanca/Eladio/eTransmitting on: 1 08/21/2024 07:44 AM EST
--- NOTE | 2025-06-20 07:42 | MHC.OFFVIS ---
Intake Visit Reasons: 6m/PSA/PVR/UA/SET Intake Note: Patient presents today for 6 mo follow up Urology Medications: Dutasteride, Terazosin Blood Thinner: none Abx Allergy : Penicillin PVR: 141 ml's Dynamics Ax Consultant Required: No Accompanied by: Self / Same As Patient Allergies Penicillins (PENICILLINS) Allergy (Unknown, Verified 06/20/25 11:02) HIVES Medication List - Last Reconciled 06/20/25 by CIERA Mohr-HERMELINDA acetaminophen (Tylenol Extra Strength) 500 mg PO Q6H PRN bimatoprost 0.01% 1 drp ophthalmic (eye) DAILY CPAP (CPAP Machine/Device) Pressure 8 dupilumab (Dupixent) mg subcut dutasteride (Avodart) 0.5 mg PO DAILY ezetimibe 10 mg PO DAILY hydrochlorothiazide 25 mg PO DAILY lisinopril 2.5 mg PO DAILY lorazepam 1 mg PO TID PRN 30 days niacin 500 mg PO BID terazosin 10 mg PO BEDTIME 90 days HPI Comments Details: Sage Ivory is a pleasant 69 year old male patient of Dr. George. He has a past medical history of hypertension, spondylosis of lumbar region without myelopathy or radiculopathy. He presents to the office today for follow-up of his lower urinary tract symptoms. In discussion with the patient today he reports to be doing and feeling well. He denies having had any bothersome urinary issues or concerns since his last office visit here. He reports compliance with dutasteride and terazosin as prescribed. He does feel improvement in lower urinary tract symptoms that he had been experiencing of urinary urgency and frequency. Of note, patient with a history of microscopic hematuria and has underwent in office cystoscopy with Dr. Tacho Gracia 04/06/24 that noted prostatic urethra enlarged, trilobar enlargement, bulbous urethra Moderate with cellule changes, and small diverticuli, no suspicious bladder lesions visualized. He was started on Avodart and discussion regarding benefit from resection of the prostate tissue or laser was discussed. Previous workup has also included a retroperitoneal ultrasound 02/03 noting bilateral kidneys with no lesions, calculi, and or hydronephrosis noted. Bilateral renal cysts noted that require no additional imaging or follow-up per radiology report. The bladder is well distended and normal. Pre void bladder volume is approximately 550 mL. Postvoid bladder volume is approximately 350 mL. There is a cystic structure inferior to the bladder measuring 2.4 cm which corresponds with CT findings of bladder diverticulum. The prostate mildly enlarged measuring approximately 58 mL. In office urinalysis results reviewed with the patient today. Persistent microscopic hematuria noted. Discussed previous urine cytology results with the patient today as noted and trended below. PVR today 141 mls. When asked he denies any previous smoking history and or workplace chemical exposure. He otherwise denies incontinence, hematuria, dysuria, foul smelling urine, changes to urinary stream, flank pain, fever, and or chills. In review of patient's chart it appears PSAs are as follows: PSA: 05/31 2.2, 06/01 2.6, 11/04 3.5, 12/05 1.8, 07/07 0.6 Urine cytology: 12/04& 07/06 Atypical urothelial cells Urine cytology: 02/03 & 01/05: Negative for high-grade urothelial carcinoma PFSH Medical History Deviated septum Cataracts, both eyes Hypertension Chronic cough Pulmonary nodules Obstructive sleep apnea Right shoulder pain Spondylosis of lumbar region without myelopathy or radiculopathy Tubular adenoma of colon Surgical History History of colonoscopy History of radiofrequency ablation (RFA) of nerve of lumbar spine History of parathyroidectomy Family History Father Diabetes Heart failure Mother Respiratory failure Social History Housing: House Alcohol intake: never Patient Tobacco Use Status: Former Tobacco user Tobacco use type: Cigarette e-Cigarette/Vaping Use: Never Used Second Hand Smoke Exposure: No service: No Current occupational status: retired Cognitive needs: No Hearing needs: No Vision needs: Yes Review of Systems Const Reports no additional complaints Eyes Reports no additional complaints ENT Reports no additional complaints Card Reports as per HPI Resp Reports no additional complaints GI Reports no additional complaints Reports as per HPI Musc Reports as per HPI Neuro Reports no additional complaints Psych Reports no additional complaints Endo Reports no additional complaints Reynold/Lymph Reports no additional complaints Aller/Immun Reports no additional complaints Physical Exam Const General: cooperative, healthy appearing, comfortable, no acute distress, well developed, alert and awake Orientation/consciousness: patient oriented x3 Limitations: no limitations HEENT Head: Yes normal to inspection, Yes normocephalic and Yes atraumatic Ears: hearing grossly normal bilaterally Eyes General: appearance normal, both eyes and all related structures Neck Neck: Yes normal visual inspection and Yes trachea midline Chest Chest palpation & inspection: normal inspection of the chest Resp Effort & Inspection: normal respiratory effort and able to speak in complete sentences Cardio Rate: regular rate GI Inspection: Yes normal to inspection General: Yes no CVA tenderness Back/Spine/Pelvis Back: no CVA tenderness Skin General skin exam: no rashes or lesions noted Neuro General: patient oriented x3 Extrem General: Yes normal to inspection Psych Appearance: grossly normal and well kempt Mental Status: mental status grossly normal Speech and movement: Normal speech and movement present and Clear speech present Affect: normal affect Attitude: cooperative Thought process: Normal thought process present Thought content: Normal thought content present Insight: Fair insight present (Psych) Judgement: Fair judgement present (Psych) Office Procedures Post Void Residual Post Residual Void Post Void Residual (PVR): 141 [id number] Void Residual by ultrasound Results AMB Urinalysis, Automated UA Leukoctes 0 Bird/uL Last Edit by Danae Willoughby [facility] on 06/20/25 07:53 UA Nitrite Negative Last Edit by Danae Willoughby [facility] on 06/20/25 07:53 UA Urobilinogen 0.2 mg/dL Last Edit by Danae Willoughby [facility] on 06/20/25 07:53 UA Protein 0 mg/dL Last Edit by Danae Willoughby [facility] on 06/20/25 07:53 UA pH 6.0 Last Edit by Danae Willoughby [facility] on 06/20/25 07:53 UA Blood 25 Isai/uL Last Edit by Danae Willoughby [facility] on 06/20/25 07:53 UA Specific [place] 1.015 Last Edit by Danae Willoughby [facility] on 06/20/25 07:53 UA Ketone Negative Last Edit by Danae Willoughby [facility] on 06/20/25 07:53 UA Bilirubin 0 mg/dL Last Edit by Danae Willoughby [facility] on 06/20/25 07:53 UA Glucose 0 mg/dL Last Edit by DICKSON Nuñez on 06/20/25 07:53 Results Reviewed Results Reviewed: Laboratory Last Values Urine pH (Auto) 6.0 06/20/25 07:52 Specific [place] (Auto) 1.015 06/20/25 07:52 Urine Protein (Auto) 0 mg/dL 06/20/25 07:52 Glucose (UA)(Auto) 0 mg/dL 06/20/25 07:52 Urine Ketones (Auto) Negative 06/20/25 07:52 Urine Blood (Auto) 25 Isai/uL 06/20/25 07:52 Urine Nitrite (Auto) Negative 06/20/25 07:52 Urine Bilirubin (Auto) 0 mg/dL 06/20/25 07:52 Urine Urobilinogen (Auto) 0.2 mg/dL 06/20/25 07:52 Leukocyte Esterase (Auto) 0 Bird/uL 06/20/25 07:52 Assessment & Plan Assessment & Plan (1) Enlarged prostate: Code(s): N40.0 - Benign prostatic hyperplasia without lower urinary tract symptoms Category: Medical (2) Abnormal cytology: Code(s): R89.6 - Abnormal cytological findings in specimens from other organs, systems and tissues Category: Medical (3) Urinary frequency: Code(s): R35.0 - Frequency of micturition Category: Medical (4) Incomplete bladder emptying: Code(s): R33.9 - Retention of urine, unspecified Category: Medical (5) Microscopic hematuria: Code(s): R31.29 - Other microscopic hematuria Category: Medical Plan In office urinalysis results reviewed with the patient today; as noted above; will send for urine cytology. PVR 141 mL. Recent PSA results reviewed with the patient today; as noted above. Previous urine cytology results were reviewed with the patient today; as noted above Continue terazosin and dutasteride as prescribed. He reports be happy with current voiding parameters. He currently denies any bothersome urinary issues or concerns. Will continue with surveillance monitoring. Follow-up in 6 months with urinalysis and PVR; or sooner with any issues, concerns, and or questions. Orders: Orders AMB Urinalysis Automated Today N13.8 - Other obstructive and reflux uropathy, N40.1 - Benign prostatic hyperplasia with lower urinary tract symptoms AMB Post Void Residual by ultrasound Today N40.1 - Benign prostatic hyperplasia with lower urinary tract symptoms Urine Cytology Today R31.29 - Other microscopic hematuria Patient Instructions: The patient had an opportunity to ask questions regarding the treatment plan. All questions were answered. Physical exam, labs, and imaging were discussed and reviewed in detail. As well as risks, benefits, and discussion of treatment choices. No major barriers to understanding were identified. The patient expressed understanding and agreement with the above treatment plan. The patient was made aware they should contact our office by phone for worsening of their current condition, the appearance of new symptoms, or with any questions or concerns. Compliance is encouraged with any medications and follow up testing that is ordered. It is a privilege to be allowed the opportunity to participate in? your urological care.? Again, if you have any questions or concerns If you have any questions or concerns please do not hesitate to contact me. The office is [phone]. This note is constructed using voice recognition software. While every effort has been made to ensure accuracy smutter errors may have been included. Yours sincerely, CLAIRE Mohr Coding Level of Care Code Est Pt Level 3 (37750) Complex visit Add On G2211 Diagnoses Enlarged prostate N40.0 Abnormal cytology R89.6 Urinary frequency R35.0 Incomplete bladder emptying R33.9 Microscopic hematuria R31.29 CPT Codes Post Residual Void - PVR CPT Code: 82366-Jxfg Void Residual by ultrasound ([id number])
--- OUTSIDE RECORDS SUMMARY | 2025-06-20 07:44 | XMS_ITS | Patient Health Record ---
Author Organization [facility] Address [address] [place] [address] Care Team Providers Care Smoking Tobacco Cutter Operator Name Role Phone Priyanka Gacria Primary Care Provider UnavailJuan Daniel Reyna Jr Unavailable Allergies Allergen (clinical drug ingredient) Drug/Non Drug Allergy documented on EMR Reaction Allergy Type Onset Date Status Penicillin Unknown Drug Allergy Active Reason For Referral No Information Medications Medication SIG (Take, Route, Frequency, Duration) Notes Start Date End Date Status Niacin 500 MG Tablet Extende d Release 1 tablet with food Orally Twice a day Active Lisinopril 2.5 MG Tablet 1 tablet Orally Once a day; Duration: 30 day(s) Active hydroCHLOROthiazide 25 MG Tablet 1 tablet Orally once a day Active Terazosin HCl 10 MG Capsule Oral; Durati on: 90 Days Active Zetia 10 MG Tablet 1 tablet Orally Once a day Active Flonase 50 MCG/DOSE Inhaler 1 spray in e ach nostril Nasally Once a day; Duration: 30 day(s) Active Lumigan 0.01 % Solution 1 drop into affe cted eye in the evening Ophthalmic Once a day Active Flomax 0.4 MG Capsule 1 capsule Orally O nce a day; Duration: 30 day(s) Active tiZANidine HCl 4 MG Tablet 1 tablet at b edtime as needed Orally Once a day Active LORazepam 1 MG Tablet TAKE 1 TABLET BY MOUTH 2 TIMES A DAY NEEDED FOR ANXIETY Oral; Duration: 30 Days Active Extra Strength Acetaminophen Active Lumigan 0.01 % Solution Ophthalmic; Dura tion: 90 Days Active Dupixent 300 MG/2ML Solution Auto-injector Subcutaneous; Duration: 28 Days Active Ezetimibe 10 MG Tablet Oral; Duration: 9 0 Days Active Immunizations Vaccine Route Administration Date Status Comme nts Influenza Unknown 04/13/2019 Administered Influenza Unknown 12/13/2024 Refused Social History Social History Additional Details Category Social Info Options Details Miscellaneous: Marital status: Occupation: computer program er/ retired Problems Problem Type SNOMED Code ICD Code Onset Dates Problem Status W/U Status Risk Notes Problem Colon cancer screening (734436323) Colon cancer screening (Z12.11) Active confirmed Problem extermination inspector current use of non-steroidal anti-inflammator y drug ([id number] ) extermination inspector (current) use of non-steroidal anti-inflammato altagracia (NSAID) (Z79.1) Active confirmed Problem H/O: high risk medication (111853627) High risk medication use (Z79.899) Active confirmed Problem History of adenomatous polyp of colon (453447632) History of adenomatous polyp of colon (Z86.0101) Active confirmed Vital Signs Temperature 97.7 degrees Fahrenheit 12/13/2024 Blood pressure diastolic 01 mm Hg 12/13/2024 Height 73.5 in 12/13/2024 Blood pressure systolic 001 mm Hg 12/13/2024 Weight 198.6 lbs 12/13/2024 BMI 25.84 kg/m2 12/13/2024 Encounters Encounter Location Date Provider Diagnosis [facility] Outpatient [address] [place] [phone] 01/11/2025 Juan Daniel Ross Jr [facility] [address] [facility] [address] [place] [address] 12/13/2024 Juan Daniel Ross Jr Colon cancer [...] Insured Coverage Start Date Coverage End Date [facility] [address] [place] [id number] ALLEN RODRIGUEZ Self - patient is the insured 5 Medical (General) History Medical History History ICD Code Colonoscopy 09/30, normal, 5- year follow-up for personal history of colon polyps. Hyperlipidemia insomnia glaucoma hypertension CAROLE/CPAP Diverticulosis BPH Surgical History Surgery Date(Month/Year) parathyroidectomy
--- OUTSIDE RECORDS SUMMARY | 2025-06-20 07:44 | XMS_ITS | Encounter Summary ---
Author Organization [facility] Address [address] [place] [address] Phone Care Team Providers Care Food And Nutrition Professor Name Role Phone Becki Street MD Unavailable [phone] Antonio Gutierrez DO Unavailable [phone] Kayleen Dodge NP Primary Care Provider Familia George MD Primary Care Provider [phone] Encounter Details Date Type Department Care Team (Late st Contact Info) Description 05/26/2018 Ancillary Orders [facility], X-Ray - [address] [phone] Paola Gómez NP [address] [place] [phone] [email or web address] Radiculopathy, lumbar region Social History Tobacco Use [...] unspecified documented in this encounter Care Teams Food And Nutrition Professor Relationship Specialty Start Date End Date Kayleen Dodge NP [address] [place] [address] Dr MARTINEZ, AYAH [address] [email or web address] PCP - General Family Medicine 03/13/18 03/12/20 Familia George MD [address] [place] [address] PCP - General Internal Medicine 03/13/[address] MD [address] [place] [address], [address] [place] [address] [email or web address] Historical LMR Provider 05/03/1707/21 Antonio Gutierrez DO [address] [place] [address] Historical LMR Provider 05/03/17 documented as of this encounter Additional Source Comments The information contained in this document represents components of the legal health record. It is not the complete legal health record.[facility]
--- OUTSIDE RECORDS SUMMARY | 2025-06-20 07:45 | XMS_ITS | Clinical Summary ---
Author Organization [facility] Address [address] [place] [address] Phone Care Team Providers Care Case Preparer And Liner Name Role Phone Familia George MD Primary Care Provider Allergies Active Allergy Reactions Criticality Noted Date [...] EDT) SODIUM 140 133 - 146 mmol/L [facility] CHLORIDE 101 96 - 108 mmol/L [facility] POTASSIUM 3.6 3.3 - 5.1 mmol/L [facility] CO2 27 21 - 35 mmol/L [facility] BUN 18 6 - 19 mg/dL [facility] CREATININE 1.00 0.5 - 1.5 mg/dL [facility] GLUCOSE 98 70 - 99 mg/dL [facility] CALCIUM 9.6 8.4 - 10.3 mg/dL [facility] EGFR 79 >59 mL/min/1.7 3m2 [facility] Comment:Estimated glomerular filtration rate calculated using the CKD-EPI equation. ANION GAP 16 10 - 20 mmol/L [facility] Blood 03/13/2020 8:53 AM EDT 03/13/2020 12:28 PM EDT Susana Fontaine BEAN SPROUT GROWER LAB BLOOD BKR ORDERABLES Fi nal Result [facility] [address] [place], [place] [phone] from Last 3 Months or Most Recently Relevant to Health Maintenance Insurance [employer] MEDICARE HMO REPLAC[place] [place] [address] [facility] MEDICARE HMO REPLACEMENT [place] [place] [address] MEDICARE HMO REPLACEMENT [facility] [place] MEDICARE HMO REPLACEMENT [place] [place] [address] MEDICARE HMO REPLACEMENT MEDICARE HMO REPLACEMENT MEDICARE HMO REPLACEMENT [employer] H[employer] REPLACEMENT Care Teams Case Preparer And Liner Relationship Specialty Start Date End Date Familia George MD [address] [place] [address] [place] [address] PCP - General Internal Medicine 03/13/20 Additional Source Comments The information contained in this document represents components of the legal health record. It is not the complete legal health record.[facility]
--- OUTSIDE RECORDS SUMMARY | 2025-06-20 07:45 | XMS_ITS | Encounter Summary ---
Author Organization [facility] Address [address] [place] [address] Phone Care Team Providers Care Bookkeeper Name Role Phone Becki Street MD Unavailable [phone] Antonio Gutierrez DO Unavailable [phone] Kayleen Dodge NP Primary Care Provider Familia George MD Primary Care Provider [phone] Reason for Referral * Physical Therapy (Routine) - Closed Specialty Diagnoses / Procedures Referred By Karlo aguiar Referred To Contact Physical Therapy Diagnoses Encounter for rehabilitation System, Provider Not In, PhD [phone] [place] [address] Phone: tel: Referral ID Status Reason Start Date Expiration Date Visits Re quested Visits Authorized [id number] Closed 07/28/2018 07/13/2019 12 12 Encounter Details Date Type Department Care Team (Late st Contact Info) Description 07/22/2018 Transcribe Orders [facility] [address] [place] [address] [phone] Kayleen Dodge NP [address] [place] [address] [phone] [email or web address] Encounter for rehabilitation (Primary Dx) Social [...] Diagnoses Orde r Schedule Ambulatory referral to [facility] Physical Therapy Outpatient Referral Routine Encounter for rehabilitation Ordered: 07/22/2018 documented as of this encounter Visit Diagnoses Diagnosis Encounter for rehabilitation- Primary documented in this encounter Care Teams Bookkeeper Relationship Specialty Start Date End Date Kayleen Dodge NP [address] [place] [address] Dr JOHNSON [address] [place] [address] [place] [address] [email or web address] PCP - General Family Medicine 03/13/18 03/12/20 Familia George MD [address] [place] [address] [facility] [address] [place] [address] PCP - General Internal Medicine 03/13/[address] MD [address] [place] [address], [facility] [address] [place] [address] [email or web address] Historical LMR Provider 05/03/1707/21 Antonio Gutierrez DO [address] [place] [address] Historical LMR Provider 05/03/17 documented as of this encounter Additional Source Comments The information contained in this document represents components of the legal health record. It is not the complete legal health record.[facility]
== END 2025-06-20 08:13 | disposition home or self-care (01) ==
LOC: HO.HUSH 07:42
PROVIDERS: PCP Internal Medicine; Visit Provider Nurse Practitioner Family
DX: N40.0 Benign prostatic hyperplasia without lower urinary tract symptoms (principal); R89.6 Abnormal cytological findings in specimens from other organs, systems and tissues; R35.0 Frequency of micturition; R33.9 Retention of urine, unspecified; R31.29 Other microscopic hematuria; N40.1 Benign prostatic hyperplasia with lower urinary tract symptoms; N13.8 Other obstructive and reflux uropathy
CPT/HCPCS: 99213; G2211

== ENCOUNTER 2025-06-20 07:42 | Outpatient (REF) | payer MEDICARE, SELFPAY | END 2025-06-20 07:43 | disposition home or self-care (01) | LOC: HO.LAB 07:42 | PROVIDERS: PCP Internal Medicine; Visit Provider Nurse Practitioner Family | DX: N40.1 Benign prostatic hyperplasia with lower urinary tract symptoms (principal); R33.8 Other retention of urine; R89.6 Abnormal cytological findings in specimens from other organs, systems and tissues; R35.0 Frequency of micturition; R31.29 Other microscopic hematuria; Z79.899 Other long term (current) drug therapy | CPT/HCPCS: 51798; 81003; 88112; 99212 ==

== ENCOUNTER → 2025-06-21 13:50 | Outpatient (REF) | payer MEDICARE, SELFPAY | LOC: HO.SL 13:50 | PROVIDERS: PCP Internal Medicine; Visit Provider Internal Medicine Pulmonary Disease | DX: G47.33 Obstructive sleep apnea (adult) (pediatric) (principal) | CPT/HCPCS: 95806 ==

== ENCOUNTER → 2025-06-21 14:04 | Outpatient (BNV) | payer MEDICARE, SELFPAY | PROVIDERS: PCP Internal Medicine; Visit Provider Psychiatry & Neurology Neurology | DX: R40.0 Somnolence (principal) | CPT/HCPCS: 95806 ==

== ENCOUNTER 2025-07-04 07:26 | Outpatient (REF) | payer MEDICARE, SELFPAY ==
--- OUTSIDE RECORDS SUMMARY | 2025-01-11 05:50 | XMS_ITS ---
Author Organization [facility] Address [address] [place] [address] Care Team Providers Care Emanations Analysis Technician Name Role Phone Priyanka Garcia Primary Care Provider Juan Daniel Price Jr REASON FOR VISIT screening Encounters Encounter Location Date Provider Diagnosis [facility] [place] [address] [place] [phone] 01/11/2025 Juan Daniel Ross Jr Plan Of Treatment No Information Progress Notes * ALLEN RODRIGUEZDOB: 5 (69 yo M)Acc No.[id number]:01/11/2025 COLON WITH MAC Patient: ALLEN LEÓN Provider: Nellie Ross MD :1955 A ge:69 Y S ex:Male Date:01/11/2025 Address:[address] [place], [place] [phone] Pcp:Priyanka Noel Subjective: * Chief Complaints: * S creening Billing Information: * Procedure Codes: * The named appointment provid er may or may not be the originator of this progress note, and it is not deemed complete until electronically signed by the appointment provider. Sign off status: Pending * Provider: Nellie Ross MD Date: 0 01/11/2025 Generated for Urmilai blanca/Eladio/eTransmitting on: 09/04/2024 07:31 AM EST
--- NOTE | ~2025-07-04 | CT_ITS ---
CLINICAL HISTORY: R91.8 - Other nonspecific abnormal finding of lung field Exam: Nonenhanced CT chest with multiplanar reformats. Comparison: 06/14/2024 and 01/09/2024 Findings: Lungs reveal stable scattered pulmonary nodules measuring up to 5-6 mm maximal dimension (for example, 5-6 mm left lower lobe nodule on 5; 94, 5 mm right lower lobe nodule on 5; 110, and 5-6 mm right lower lobe nodule on 5; 115). No new or enlarging pulmonary nodules. No new consolidation. Airways are patent. No pneumothorax. No new mediastinal or hilar masses or adenopathy. No pleural or pericardial effusions. Stable moderate-sized hiatal hernia. Images below the diaphragms reveal no acute abnormalities. Stable partially imaged left renal cyst. Osseous structures reveal no destructive osseous lesions. Impression: 1. Stable scattered pulmonary nodules measuring up to 5-6 mm maximal dimension, with roughly 18 month stability documented. Consider documentation of 2 year stability, with follow-up chest CT after December of 2025. Plan: Consider follow-up chest CT after December of 2025, in order to document 2 year stability for pulmonary nodules. Fleischner 2017 Guidelines were utilized to develop follow up recommendations for this patient. The full article can be viewed at: https://goo.gl/Anahy Follow up strategies in solid nodules vary depending on patient risk assessment, with patient's classified as high or low risk. Low risk is associated with young age, smaller nodule size, regular margins, and location in an area other than the upper lobe. High risk factors include older age, heavy smoking, emphysema, carcinogen exposure, larger nodule size, irregular or spiculated margins, and upper lobe location. Nodule size and morphology are the dominant factors. Follow up of subsolid nodules (including ground glass and part solid opacities) is different when compared to solid nodules based on risk of malignancy and a longer doubling time in this group. Therefore when follow up is recommended, it is for a longer interval. Also in this group, recommendations may vary depending on a solitary lesion versus multiplicity of lesions. A calculator of estimated risk is available at: https://goo.gl/URSZULAJEh ##PFU# This document has been electronically signed by: Dante Mitchell MD on 07/04/2025 17:12:32
--- OUTSIDE RECORDS SUMMARY | 2025-07-04 07:32 | XMS_ITS | Encounter Summary ---
Author Organization [facility] Address [address] [place] [address] Phone Care Team Providers Care Marine Engine Machinist Apprentice Name Role Phone Becki Street MD Unavailable [phone] Antonio Gutierrez DO Unavailable [phone] Kayleen Dodge NP Primary Care Provider Familia George MD Primary Care Provider [phone] Reason for Referral * Physical Therapy (Routine) - Closed Specialty Diagnoses / Procedures Referred By Karlo aguiar Referred To Contact Physical Therapy Diagnoses Encounter for rehabilitation System, Provider Not In, PhD [id number] [place] [address] Phone: tel: Referral ID Status Reason Start Date Expiration Date Visits Re quested Visits Authorized [id number] Closed 07/28/2018 07/13/2019 12 12 Encounter Details Date Type Department Care Team (Late st Contact Info) Description 07/22/2018 Transcribe Orders [facility] [address] [place] [address] [phone] Kayleen Dodge, SIENNA [address] [place] [address] [phone] [email or web address] Encounter for rehabilitation (Primary Dx) [...] Diagnoses Orde r Schedule Ambulatory referral to [facility] Physical Therapy Outpatient Referral Routine Encounter for rehabilitation Ordered: 07/22/2018 documented as of this encounter Visit Diagnoses Diagnosis Encounter for rehabilitation- Primary documented in this encounter Care Teams Marine Engine Machinist Apprentice Relationship Specialty Start Date End Date Kayleen Dodge NP [address] [place] [address] Dr JOHNSON [address] [place] [address] [email or web address] PCP - General Family Medicine 03/13/18 03/12/20 Familia George MD [address] [place] [address] Dr Johnson [address] [place] [address] PCP - General Internal Medicine 03/13/[address] MD [address] [place] [address], [facility] [address] [place] [address] [email or web address] Historical LMR Provider 05/03/1707/21 Antonio Gutierrez DO [address] [place] [address] Historical LMR Provider 05/03/17 documented as of this encounter Additional Source Comments The information contained in this document represents components of the legal health record. It is not the complete legal health record.[facility]
--- OUTSIDE RECORDS SUMMARY | 2025-07-04 07:32 | XMS_ITS | Clinical Summary ---
Author Organization [facility] Address [address] [place] [address] Phone Care Team Providers Care Used Car Sales Supervisor Name Role Phone Familia George MD Primary Care Provider [phone] Allergies Active Allergy Reactions Criticality Noted Date [...] EDT) SODIUM 140 133 - 146 mmol/L [facility] CHLORIDE 101 96 - 108 mmol/L [facility] POTASSIUM 3.6 3.3 - 5.1 mmol/L [facility] CO2 27 21 - 35 mmol/L [facility] BUN 18 6 - 19 mg/dL [facility] CREATININE 1.00 0.5 - 1.5 mg/dL [facility] GLUCOSE 98 70 - 99 mg/dL [facility] CALCIUM 9.6 8.4 - 10.3 mg/dL [facility] EGFR 79 >59 mL/min/1.7 3m2 [facility] Comment:Estimated glomerular filtration rate calculated using the CKD-EPI equation. ANION GAP 16 10 - 20 mmol/L [facility] Blood 03/13/2020 8:53 AM EDT 03/13/2020 12:28 PM EDT Susana Fontaine MATE CHIEF LAB BLOOD BKR ORDERABLES Fi nal Result [facility] [address] [place], [place] [phone] from Last 3 Months or Most Recently Relevant to Health Maintenance Insurance [employer] MEDICARE HMO [place] [address] [place] [address] MEDICARE HMO REPLACEMENT [facility] MEDICARE HMO [place] [address] [place] [address] MEDICARE HMO REPLACEMENT [facility] [employer] [place] MEDICARE HMO [place] [address] [place] [address] MEDICARE HMO REPLACEMENT MEDICARE HMO REPLACEMENT MEDICARE HMO REPLACEMENT [employer] H[employer] REPLACEMENT Care Teams Used Car Sales Supervisor Relationship Specialty Start Date End Date Familia George MD [address] [place] [address] [place] [address] PCP - General Internal Medicine 03/13/20 Additional Source Comments The information contained in this document represents components of the legal health record. It is not the complete legal health record.[facility]
--- OUTSIDE RECORDS SUMMARY | 2025-07-04 07:32 | XMS_ITS | Encounter Summary ---
Author Organization [facility] Address [address] [place] [address] Phone Care Team Providers Care Claim Administrator Name Role Phone Becki Street MD Unavailable Antonio Gutierrez DO Unavailable [phone] Kayleen Dodge NP Primary Care Provider Familia George MD Primary Care Provider [phone] Encounter Details Date Type Department Care Team (Late st Contact Info) Description 05/26/2018 Ancillary Orders [facility], X-Ray - [address] [id number] Paola Gómez NP [address] [place] [phone] [email or web address] Radiculopathy, lumbar region Social History Tobacco Use [...] unspecified documented in this encounter Care Teams Claim Administrator Relationship Specialty Start Date End Date Kayleen Dodge NP [address] [place] [address] Dr MARTINEZ, AYAH [address] [email or web address] PCP - General Family Medicine 03/13/18 03/12/20 Familia George MD [address] [place] [address] PCP - General Internal Medicine 03/13/[address] MD [address] [place] [address], [address] [place] [address] [email or web address] Historical LMR Provider 05/03/1707/21 Antonio Gutierrez DO [address] [place] [address] Historical LMR Provider 05/03/17 documented as of this encounter Additional Source Comments The information contained in this document represents components of the legal health record. It is not the complete legal health record.[facility]
--- OUTSIDE RECORDS SUMMARY | 2025-07-04 07:32 | XMS_ITS | Patient Health Record ---
Author Organization [facility] Address [address] [place] [address] Care Team Providers Care Piano Regulator Name Role Phone Priyanka Garcia Primary Care [...] Status Risk Notes Problem Colon cancer screening (819542796) Colon cancer screening (Z12.11) Active confirmed Problem intermediate card tender current use of non-steroidal anti-inflammator y drug (021268653726159 ) penitentiary (current) use of non-steroidal anti-inflammato altagracia (NSAID) (Z79.1) Active confirmed Problem H/O: high risk medication (080691357) High risk medication use (Z79.899) Active confirmed Problem History of adenomatous polyp of colon (526192450) History of adenomatous polyp of colon (Z86.0101) Active confirmed Vital Signs Temperature 97.7 degrees Fahrenheit 12/13/2024 Blood pressure diastolic 01 mm Hg 12/13/2024 Height 73.5 in 12/13/2024 Blood pressure systolic 001 mm Hg 12/13/2024 Weight 198.6 lbs 12/13/2024 BMI 25.84 kg/m2 12/13/2024 Encounters Encounter Location Date Provider Diagnosis [facility] Outpatient [address] [place] [address] [phone] 01/11/2025 Juan Daniel Ross Jr [facility] [address] [facility] [address] [place] [address] 12/13/2024 Juan Daniel Ross Jr Colon cancer [...] Insured Coverage Start Date Coverage End Date [facility] [address] [place] [address] [id number] ALLEN RODRIGUEZ Self - patient is the insured 5 Medical (General) History Medical History History ICD Code Colonoscopy 09/30, normal, 5- year follow-up for personal history of colon polyps. Hyperlipidemia insomnia glaucoma hypertension CAROLE/CPAP Diverticulosis BPH Surgical History Surgery Date(Month/Year) parathyroidectomy
== END 2025-07-04 07:27 | disposition home or self-care (01) ==
LOC: HO.CT 07:26
PROVIDERS: Visit Provider Internal Medicine Pulmonary Disease
DX: R91.8 Other nonspecific abnormal finding of lung field (principal)
CPT/HCPCS: 71250

== ENCOUNTER → 2025-07-04 07:29 | Outpatient (BNV) | payer MEDICARE, SELFPAY | PROVIDERS: Visit Provider Radiology Diagnostic Radiology | DX: R91.8 Other nonspecific abnormal finding of lung field (principal) | CPT/HCPCS: 71250 ==

== ENCOUNTER 2025-07-11 08:57 | Outpatient (AMB) | payer MEDICARE, SELFPAY ==
--- OUTSIDE RECORDS SUMMARY | 2025-01-11 05:50 | XMS_ITS ---
Author Organization [facility] Address [address] [place] [address] Care Team Providers Care High School Librarian Name Role Phone Priyanka Garcia Primary Care Provider Juan Daniel Price Jr REASON FOR VISIT screening Encounters Encounter Location Date Provider Diagnosis [facility] [place] [address] [place] [phone] 01/11/2025 Juan Daniel Ross Jr Plan Of Treatment No Information Progress Notes * ALLEN RODRIGUEZDOB: 5 (69 yo M)Acc No.[id number]:01/11/2025 COLON WITH MAC Patient: ALLEN LEÓN Provider: Nellie Ross MD :1955 A ge:69 Y S ex:Male Date:01/11/2025 Address:[address] [place], [place] [phone] Pcp:Priyanka Noel Subjective: * Chief Complaints: * S creening Billing Information: * Procedure Codes: * The named appointment provid er may or may not be the originator of this progress note, and it is not deemed complete until electronically signed by the appointment provider. Sign off status: Pending * Provider: Nellie Ross MD Date: 0 01/11/2025 Generated for Urmilai blanca/Eladio/eTransmitting on: 1 09:11 AM EST
[2025-07-11 08:59] VITALS: BP 110/64; PULSE 82; O2SAT 96; BMI 25.8
--- NOTE | 2025-07-11 08:59 | A.OFFVIS_ITS ---
Vital Signs 07/11/25 08:59 Height 6 ft 2 in Weight 201 lb BMI 25.8 BP 110/64 Blood Pressure Location Lt brachial Position Sitting Pulse 82 Pulse Source Pulse Oximeter Pulse Oximetry (%) 96 Oxygen Delivery Method Room Air Intake Visit Reasons: CAROLE/CT follow-up Allergies Penicillins (PENICILLINS) Allergy (Unknown, Verified 07/11/25 09:06) HIVES HPI HPI CAROLE/CT follow-up: Details: 69-year-old gentleman, minimal smoker in his late teens/early 20s, now followed for incidentally noted pulmonary nodules. Patient had his 12 months follow-up CT scan. Patient also had a repeat home sleep study that showed no underlying sleep apnea. [facility] Medical History Deviated septum Cataracts, both eyes Hypertension Chronic cough Pulmonary nodules Obstructive sleep apnea Right shoulder pain Spondylosis of lumbar region without myelopathy or radiculopathy Tubular adenoma of colon Surgical History History of colonoscopy History of radiofrequency ablation (RFA) of nerve of lumbar spine History of parathyroidectomy Family History Father Diabetes Heart failure Mother Respiratory failure Social History Housing: House Alcohol intake: never Patient Tobacco Use Status: Former Tobacco user Tobacco use type: Cigarette e-Cigarette/Vaping Use: Never Used Second Hand Smoke Exposure: No service: No Current occupational status: retired Cognitive needs: No Hearing needs: No Vision needs: Yes Review of Systems Const Denies daytime sleepiness, Denies excessive sweating, Denies fatigue, Denies fever(s), Denies lethargy, Denies malaise, Denies night sweats, Denies snoring and Denies weight loss Eyes Denies blurry vision and Denies itchy eyes ENT Denies nasal congestion, Denies post nasal drip, Denies sinus pain, Denies sinus pressure and Denies other ( Thrush) Card Denies chest pain, Denies pedal edema, Denies dyspnea, Denies orthopnea and Denies paroxysmal nocturnal dyspnea Resp Denies cough, Denies hemoptysis, Denies excessive phlegm production, Denies dyspnea, Denies snoring and Denies wheezing GI Denies abdominal pain and Denies heartburn Musc Denies myalgias, Denies arthralgias and Denies joint swelling Skin/Breast Denies rash Neuro Denies memory loss and Denies seizure-like activity Psych Denies abnormal sleep pattern, Denies anxiety and Denies memory loss Endo Denies excessive sweating, Denies fatigue and Denies heat intolerance Reynold/Lymph Denies easy bruising Aller/Immun Denies itchy eyes, Denies seasonal rhinorrhea and Denies wheezing Physical Exam Vital Signs: Last Vital Signs Pulse 82 07/11/25 08:59 BP 110/64 07/11/25 08:59 Pulse Ox 96 07/11/25 08:59 Oxygen Delivery Method Room Air 07/11/25 08:59 BMI result Body Mass Index 25.8 Const General: no acute distress and alert Nutritional Appearance: not obese Orientation/consciousness: Other orientation findings ( oriented) HEENT Head: Yes atraumatic Eyes General: appearance normal, both eyes and all related structures Sclerae: sclerae normal EOM: EOMs intact bilaterally Neck Neck: Yes supple Lymphatic: no lymphadenopathy noted Resp Effort & Inspection: normal respiratory effort and no use of accessory muscles Auscultation: clear to auscultation bilaterally Cardio Rate: regular rate Rhythm: regular rhythm Heart sounds: no gallops, no murmurs and no rubs Skin General skin exam: other ( warm) Extrem General: No clubbing, No cyanosis and No edema Assessment & Plan Assessment & Plan (1) Pulmonary nodules: Code(s): R91.8 - Other nonspecific abnormal finding of lung field Category: Medical Plan: Results of follow-up CT chest reviewed, stable pulmonary nodules. Will repeat CT chest in 12 months, if stable at that time, no further imaging follow-up would be required. (2) Obstructive sleep apnea: Code(s): G47.33 - Obstructive sleep apnea (adult) (pediatric) Category: Medical Plan: Results of home sleep study reviewed, no underlying sleep apnea noted. Orders: Orders CT chest wo IV con 06/27/26 R91.8 - Other nonspecific abnormal finding of lung field Coding Level of Care Code Est Pt Level 4 (89530) Diagnoses Pulmonary nodules R91.8 Obstructive sleep apnea G47.33
--- OUTSIDE RECORDS SUMMARY | 2025-07-11 09:11 | XMS_ITS | Patient Health Record ---
Author Organization [facility] Address [address] [place] [address] Care Team Providers Care International Tax Manager Name Role Phone Priyanka Garcia Primary Care [...] Status Risk Notes Problem Colon cancer screening (416119623) Colon cancer screening (Z12.11) Active confirmed Problem technician terminal and repeater current use of non-steroidal anti-inflammator y drug (812338205211682 ) intermediate (current) use of non-steroidal anti-inflammato altagracia (NSAID) (Z79.1) Active confirmed Problem H/O: high risk medication (704310569) High risk medication use (Z79.899) Active confirmed Problem History of adenomatous polyp of colon (822576396) History of adenomatous polyp of colon (Z86.0101) Active confirmed Vital Signs Temperature 97.7 degrees Fahrenheit 12/13/2024 Blood pressure diastolic 01 mm Hg 12/13/2024 Height 73.5 in 12/13/2024 Blood pressure systolic 001 mm Hg 12/13/2024 Weight 198.6 lbs 12/13/2024 BMI 25.84 kg/m2 12/13/2024 Encounters Encounter Location Date Provider Diagnosis [facility] Outpatient [address] [place] [id number] 01/11/2025 Juan Daniel Ross Jr [facility] [address] [facility] [address] [place] [address] 12/13/2024 Juan Daniel Ross Jr Colon cancer [...] Insured Coverage Start Date Coverage End Date [facility] [address] [place] [address] [id number] ALLEN RODRIGUEZ Self - patient is the insured 5 Medical (General) History Medical History History ICD Code Colonoscopy 09/30, normal, 5- year follow-up for personal history of colon polyps. Hyperlipidemia insomnia glaucoma hypertension CAROLE/CPAP Diverticulosis BPH Surgical History Surgery Date(Month/Year) parathyroidectomy
--- OUTSIDE RECORDS SUMMARY | 2025-07-11 09:11 | XMS_ITS | Encounter Summary ---
Author Organization [facility] Address [address] [place] [address] Phone Care Team Providers Care Grade School Teacher Name Role Phone Becki Street MD Unavailable Antonio Gutierrez DO Unavailable [phone] Kayleen Dodge NP Primary Care Provider Familia George MD Primary Care Provider [phone] Encounter Details Date Type Department Care Team (Late st Contact Info) Description 05/26/2018 Ancillary Orders [facility], X-Ray - [address] [phone] Paola Gómez NP [address] [place] [phone] [email or web address] Radiculopathy, lumbar region Social History Tobacco Use [...] unspecified documented in this encounter Care Teams Grade School Teacher Relationship Specialty Start Date End Date Kayleen Dodge NP [address] [place] [address] Dr MARTINEZ, AYAH [address] [email or web address] PCP - General Family Medicine 03/13/18 03/12/20 Familia George MD [address] [place] [address] PCP - General Internal Medicine 03/13/[address] MD [address] [place] [address], [address] [place] [address] [email or web address] Historical LMR Provider 05/03/1707/21 Antonio Gutierrez DO [address] [place] [address] Historical LMR Provider 05/03/17 documented as of this encounter Additional Source Comments The information contained in this document represents components of the legal health record. It is not the complete legal health record.[facility]
--- OUTSIDE RECORDS SUMMARY | 2025-07-11 09:12 | XMS_ITS | Encounter Summary ---
Author Organization [facility] Address [address] [place] [address] Phone Care Team Providers Care Chemical Checker Name Role Phone Becki Street MD Unavailable [phone] Antonio Gutierrez DO Unavailable [phone] Kayleen Dodge NP Primary Care Provider Familia George MD Primary Care Provider [phone] Reason for Referral * Physical Therapy (Routine) - Closed Specialty Diagnoses / Procedures Referred By Karlo aguiar Referred To Contact Physical Therapy Diagnoses Encounter for rehabilitation System, Provider Not In, PhD [id number] [place] [address] Phone: tel: Referral ID Status Reason Start Date Expiration Date Visits Re quested Visits Authorized [id number] Closed 07/28/2018 07/13/2019 12 12 Encounter Details Date Type Department Care Team (Late st Contact Info) Description 07/22/2018 Transcribe Orders [facility] [address] [place] [address] [phone] Kayleen Dodge, SIENNA [address] [place] [phone] [email or web address] Encounter for rehabilitation (Primary Dx) Social [...] Diagnoses Orde r Schedule Ambulatory referral to [facility] Physical Therapy Outpatient Referral Routine Encounter for rehabilitation Ordered: 07/22/2018 documented as of this encounter Visit Diagnoses Diagnosis Encounter for rehabilitation- Primary documented in this encounter Care Teams Chemical Checker Relationship Specialty Start Date End Date Kayleen Dodge NP [address] [place] [address] Dr JOHNSON [address] [place] [phone] [email or web address] PCP - General Family Medicine 03/13/18 03/12/20 Familia George MD [address] [place] [address] Dr Johnson [address] [place] [phone] PCP - General Internal Medicine 03/13/[address] MD [address] [place] [address], [facility] [address] [place] [address] [email or web address] Historical LMR Provider 05/03/1707/21 Antonio Gutierrez DO [address] [place] [phone] Historical LMR Provider 05/03/17 documented as of this encounter Additional Source Comments The information contained in this document represents components of the legal health record. It is not the complete legal health record.[facility]
--- OUTSIDE RECORDS SUMMARY | 2025-07-11 09:12 | XMS_ITS | Clinical Summary ---
Author Organization [facility] Address [address] [place] [address] Phone Care Team Providers Care Burring Machine Operator Name Role Phone Familia George MD Primary Care Provider [phone] Allergies Active Allergy Reactions Criticality Noted Date [...] EDT) SODIUM 140 133 - 146 mmol/L [facility] CHLORIDE 101 96 - 108 mmol/L [facility] POTASSIUM 3.6 3.3 - 5.1 mmol/L [facility] CO2 27 21 - 35 mmol/L [facility] BUN 18 6 - 19 mg/dL [facility] CREATININE 1.00 0.5 - 1.5 mg/dL [facility] GLUCOSE 98 70 - 99 mg/dL [facility] CALCIUM 9.6 8.4 - 10.3 mg/dL [facility] EGFR 79 >59 mL/min/1.7 3m2 [facility] Comment:Estimated glomerular filtration rate calculated using the CKD-EPI equation. ANION GAP 16 10 - 20 mmol/L [facility] Blood 03/13/2020 8:53 AM EDT 03/13/2020 12:28 PM EDT Susana Fontaine WASH HOUSE WORKER LAB BLOOD BKR ORDERABLES Fi nal Result [facility] [address] [place], [place] [phone] from Last 3 Months or Most Recently Relevant to Health Maintenance Insurance [employer] HMO [place] [address] [place] [address] MEDICARE HMO REPLACEMENT [facility] MEDICARE HMO [place]ACEMENT [place] [address] MEDICARE HMO REPLACEMENT [facility] MEDICARE HMO RE[place]ACEMENT [place] [address] MEDICARE HMO REPLACEMENT MEDICARE HMO REPLACEMENT MEDICARE HMO REPLACEMENT [facility] H[employer] REPLACEMENT Care Teams Burring Machine Operator Relationship Specialty Start Date End Date Familia George MD [address] [place] [address] [place] [phone] PCP - General Internal Medicine 03/13/20 Additional Source Comments The information contained in this document represents components of the legal health record. It is not the complete legal health record.[facility]
== END 2025-07-11 09:20 | disposition home or self-care (01) ==
LOC: HO.HPS 08:58
PROVIDERS: Visit Provider Internal Medicine Pulmonary Disease
DX: R91.8 Other nonspecific abnormal finding of lung field (principal); G47.33 Obstructive sleep apnea (adult) (pediatric)
CPT/HCPCS: 99214

== ENCOUNTER → 2025-07-11 08:57 | Outpatient (BNVA) | payer MEDICARE, SELFPAY | PROVIDERS: Visit Provider Internal Medicine Pulmonary Disease | DX: R91.8 Other nonspecific abnormal finding of lung field (principal); G47.33 Obstructive sleep apnea (adult) (pediatric) | CPT/HCPCS: 99212 ==